=== PATIENT | female | born 1935 | race Caucasian/White ===

== ENCOUNTER → 2018-09-11 12:34 | Outpatient (CLI) | payer MEDICARE, OTHER, SELFPAY ==
--- NOTE | 2018-09-11 | DI.MG.S_ITS ---
BILATERAL DIGITAL SCREENING MAMMOGRAM 3D/2D WITH CAD POST LUMPECTOMY: 09/11/2018 CLINICAL: Routine screening. Personal history of right breast cancer. Comparison is made to exams dated: 09/08/2017 mammogram, 08/18/2015 mammogram, and 08/15/2014 mammogram - [facility]. The tissue of both breasts is heterogeneously dense. This may lower the sensitivity of mammography. Current study was also evaluated with a Computer Aided Detection (CAD) system. There are benign post operative findings in the right breast. No significant masses, calcifications, or other findings are seen in either breast. There has been no significant interval change. IMPRESSION: There is no mammographic evidence of malignancy. A 1 year screening mammogram is recommended. This exam was interpreted at Station ID: [id number]. NOTE: For mammograms, a report in lay terms will be sent to the patient. Approximately 15% of breast malignancies will not be visualized mammographically. In the management of a palpable breast mass, a negative mammogram must not discourage biopsy of a clinically suspicious lesion. Electronically Signed By: Darian schilling/dejah:09/11/2018 17:19:15 copy to: Jude Choe letter sent: Normal Exam ACR BI-RADS Category 2: Benign Finding(s) 3342F
== END ==
PROVIDERS: PCP Family Medicine; Visit Provider Nurse Practitioner Gerontology
DX: Z12.31 Encounter for screening mammogram for malignant neoplasm of breast (principal); Z85.3 Personal history of malignant neoplasm of breast; M85.851 Other specified disorders of bone density and structure, right thigh; Z78.0 Asymptomatic menopausal state; Z82.62 Family history of osteoporosis; Z87.891 Personal history of nicotine dependence
CPT/HCPCS: 77063; 77067; 77080

== ENCOUNTER → 2019-04-25 16:02 | Outpatient (CLI) | payer MEDICARE, OTHER, SELFPAY ==
--- NOTE | 2019-04-25 16:05 | DI.RAD.S_ITS ---
PROCEDURE: XR LUMBAR SPINE 2-3V INDICATIONS: lower back TECHNIQUE: 3 views of the lumbar spine were acquired. COMPARISON: [facility], , L-SPINE 2-3 VIEWS, 08/09/2011, 16:05. FINDINGS: Bones: 5 pmc-mmn-shxwsck vertebrae are present. There is persistent dextrocurvature of the lumbar spine centered at L3. Moderate-severe multilevel lumbar spondylosis demonstrates interval progression of spondylosis with increased disc space loss, degenerative endplate changes, and prominent endplate osteophyte formation. Findings appear most pronounced at L3-4 and L2-3. Lower lumbar facet arthrosis. No acute vertebral body compression fractures. No suspicious bony lesions. Soft tissues: Overlying bowel gas pattern is normal. No suspicious soft tissue calcifications. IMPRESSION: 1. Lumbar spine without acute osseous abnormalities. 2. Interval progression of moderate-severe multilevel lumbar spondylosis most pronounced at L2-3 and L3-4. If there are focal neurological deficits or clinical concern for radiographically occult osseous lesions, consider further evaluation with CT or MRI. Dictated by: Gallito Edward M.D. on 04/25/2019 at 16:59 Approved by: Gallito Edward M.D. on 04/25/2019 at 17:04
== END ==
PROVIDERS: PCP Family Medicine; Visit Provider Family Medicine
DX: M54.5 Low back pain (principal); M47.816 Spondylosis without myelopathy or radiculopathy, lumbar region
CPT/HCPCS: 72100

== ENCOUNTER → 2019-09-12 11:01 | Outpatient (CLI) | payer MEDICARE, OTHER, SELFPAY ==
--- NOTE | 2019-09-12 11:21 | DI.MG.S_ITS ---
Patient Name: RAMILA AREVALO date: 1935 Sex: F Attending Physician: Ismael Indications: Date: 09/12/2019 11:21 At the request of: DONAVAN BLANCHARD Procedure: MM screening mammo BI BILATERAL DIGITAL SCREENING MAMMOGRAM 3D/2D WITH CAD: 09/12/2019 CLINICAL: Routine screening. Personal history of right breast cancer. Comparison is made to exams dated: 09/11/2018 mammogram, 09/08/2017 mammogram, and 08/23/2016 mammogram - [facility]. The tissue of both breasts is heterogeneously dense. This may lower the sensitivity of mammography. Current study was also evaluated with a Computer Aided Detection (CAD) system. There are postsurgical changes of the right breast with scarring and peripherally calcified fat necrosis noted. There is a biopsy clip in the lateral right breast. Fine and punctate calcifications of the lateral right breast (located inferior and posterior to the larger area of peripherally calcified fat necrosis described above) appear more prominent than on prior exams. There is an irregular asymmetry in the medial right breast at middle depth. There is an irregular asymmetry in the lateral left breast at middle to posterior depth. No other significant masses, calcifications, or other findings are seen in either breast. IMPRESSION: INCOMPLETE: NEEDS ADDITIONAL IMAGING EVALUATION Fine and punctate calcifications of the lateral right breast appear more prominent than on prior exams and is indeterminate. A follow-up diagnostic mammogram with magnification views is recommended. There is an irregular asymmetry in the medial right breast at middle depth. This is indeterminate. A follow-up diagnostic mammogram with possible targeted ultrasound is recommended. There is an irregular asymmetry in the lateral left breast at middle to posterior depth. This is indeterminate. A follow-up diagnostic mammogram with possible targeted ultrasound is recommended. Continued Report - Page 2 of 2 Patient Name: RAMILA AREVALO date: 1935 Sex: F Attending Physician: Ismael Indications: Date: 09/12/2019 11:21 At the request of: DONAVAN BLANCHARD Procedure: MM screening mammo BI This exam was interpreted at Station ID: [id number]. NOTE: For mammograms, a report in lay terms will be sent to the patient. Approximately 15% of breast malignancies will not be visualized mammographically. In the management of a palpable breast mass, a negative mammogram must not discourage biopsy of a clinically suspicious lesion. Electronically Signed By: Beni Vizcaino M.D. ecl/:09/18/2019 12:53:13 copy to: Jude Choe letter sent: Additional Imaging Needed ACR BI-RADS Category 0: Incomplete 3340F
== END ==
PROVIDERS: PCP Family Medicine; Referring Provider Family Medicine; Visit Provider Internal Medicine Hematology & Oncology
DX: Z12.31 Encounter for screening mammogram for malignant neoplasm of breast (principal); Z85.3 Personal history of malignant neoplasm of breast
CPT/HCPCS: 77063; 77067

== ENCOUNTER → 2019-10-04 13:02 | Outpatient (CLI) | payer MEDICARE, OTHER, SELFPAY ==
--- NOTE | 2019-10-04 13:05 | DI.MG.S_ITS ---
BILATERAL DIGITAL DIAGNOSTIC MAMMOGRAM 3D/2D WITH ADDITIONAL VIEWS: 10/04/2019 CLINICAL: Additional evaluation requested from prior study. Comparison is made to exams dated: 09/12/2019 mammogram, 09/11/2018 mammogram, 09/08/2017 mammogram, 08/23/2016 mammogram, 04/12/2016 mammogram, and 08/18/2015 mammogram - [facility]. The tissue of both breasts is heterogeneously dense. This may lower the sensitivity of mammography. There are postsurgical changes of the right breast with scarring and peripherally calcified fat necrosis in the superior lateral quadrant. There is a biopsy clip in the superior lateral right breast. Subtle dystrophic and punctate calcification in the right breast at 11 o'clock posterior depth appear stable compared to more remote prior exams. This is seen in additional views. Irregular asymmetry in the medial right breast at middle depth resolves on additional views. Irregular asymmetry in the lateral left breast at middle to posterior depth resolves on additional views. No other significant masses, calcifications, or other findings are seen in either breast. IMPRESSION: PROBABLY BENIGN Subtle dystrophic and punctate calcification in the right breast resembles fat necrosis appear stable to more remote mammograms and are probably benign. -Exam findings and recommendation were conveyed to the patient by the echo technologist. A follow-up right breast mammogram in 6 months is recommended to demonstrate continued stability. Irregular asymmetry in the medial right breast at middle depth and lateral left breast at middle to posterior depth resolve on additional views and are benign. This exam was interpreted at Station ID: [id number]. NOTE: For mammograms, a report in lay terms will be sent to the patient. Approximately 15% of breast malignancies will not be visualized mammographically. In the management of a palpable breast mass, a negative mammogram must not discourage biopsy of a clinically suspicious lesion. Electronically Signed By: Luis Miguel Guillen M.D. slc/:10/04/2019 15:09:35 copy to: Jude Choe copy to: AWILDA WISE letter sent: Followup Recommended ACR BI-RADS Category 3: Probably benign 3343F
== END ==
PROVIDERS: PCP Family Medicine; Referring Provider Family Medicine; Visit Provider Family Medicine
DX: R92.8 Other abnormal and inconclusive findings on diagnostic imaging of breast (principal); R92.1 Mammographic calcification found on diagnostic imaging of breast; Z85.3 Personal history of malignant neoplasm of breast
CPT/HCPCS: 77066; G0279

== ENCOUNTER → 2020-03-13 12:10 | Outpatient (CLI) | payer MEDICARE, OTHER, SELFPAY ==
[2020-03-13 12:22] LABS: Bacteria Urine None Seen; WBC Urine None Seen (0-5/HPF)
[2020-03-13 12:40] LABS: Add Manual Diff / Slide Review NO; Basophils Absolute Auto 0 /uL (0-100); Basophils Percent Auto 0.5 % (0-2); Eosinophils Absolute Auto 0 /uL (0-450); Eosinophils Percent Auto 0.7 % (2-4); Hematocrit 39.2 % (36-46); Hemoglobin 13.6 g/dL (12.0-16.0); Lymphocytes Absolute Auto 700 /uL (1100-4500); Lymphocytes Percent Auto 13.3 % (25-40); Mean Corpuscular HGB Conc 34.7 % (30-36); Mean Corpuscular Hemoglobin 33.4 PG (26-34); Mean Corpuscular Volume 96.2 fL (80-100); Monocytes Absolute Auto 400 /uL (0-900); Monocytes Percent Auto 7.5 % (3-14); Neutrophils Absolute Auto 4200 /uL (1500-7000); Platelet Count 215 X10^3/uL (150-400); Red Blood Cell Count 4.08 X10^6/uL (4.0-5.2); Red Cell Distribution Width 13.1 % (11.6-14.8); White Blood Cell Count 5.4 X10^3/uL (4.5-11.0)
[2020-03-13 12:46] LABS: Appearance Urine UA CLEAR; Bilirubin Urine UA NEGATIVE (NEGATIVE); Color Urine UA YELLOW; Glucose Urine UA NEGATIVE (Negative); Ketones Urine UA TRACE (NEGATIVE); Leukocyte Esterase Urine UA NEGATIVE (NEGATIVE); Nitrite Urine UA NEGATIVE (Negative); Occult Blood Urine UA TRACE-INTACT (Negative); Protein Urine UA NEGATIVE (Negative); Specific Gravity Urine UA 1.015 (1.000-1.035); Urobilinogen Urine UA 0.2 E.U./dL (0.2)
[2020-03-13 12:49] LABS: pH Urine UA 5.5 (4.5-8.0)
[2020-03-13 12:53] LABS: Culture Indicated Urine Cult Not Indicated; RBC Urine 1-5/HPF (0-5/HPF); Squamous Epithelial Cell Urine 1-5 /HPF (0-5/HPF)
[2020-03-13 13:08] LABS: Alanine Aminotransferase 13 IU/L (<35); Albumin 4.3 g/dL (3.5-5.0); Albumin Globulin Ratio 1.6 (1.0-2.8); Alkaline Phosphatase 49 U/L (38-126); Aspartate Aminotransferase 25 IU/L (14-36); BUN Creatinine Ratio 35.4 (6-22); Bilirubin Total 0.8 mg/dL (0.2-1.3); Blood Urea Nitrogen 17 mg/dL (7-17); Calcium 9.1 mg/dL (8.4-10.2); Carbon Dioxide 29 mmol/L (22-32); Chloride 100 mmol/L (98-107); Estimated Glomerular Filt Rate > 60.0 mL/min (>60); Globulin 2.7 g/dL (1.7-4.1); Glucose 95 mg/dL (80-110); HEMOLYSIS < 15 (0-50); Potassium 4.3 mmol/L (3.4-5.1); Sodium 134 mmol/L (137-145)
== END ==
PROVIDERS: PCP Family Medicine; Referring Provider Family Medicine; Visit Provider Family Medicine
DX: M47.816 Spondylosis without myelopathy or radiculopathy, lumbar region (principal); R10.9 Unspecified abdominal pain
CPT/HCPCS: 36415; 80053; 81001; 85025

== ENCOUNTER → 2020-03-24 07:07 | Outpatient (CLI) | payer MEDICARE, OTHER, SELFPAY ==
--- NOTE | 2020-03-24 07:10 | DI.MRI.S_ITS ---
PROCEDURE: MR LUMBAR SPINE WO CON INDICATIONS: back pain with radiculopathy TECHNIQUE: Noncontrast sagittal T1 spin echo and T2 fast echo, sagittal STIR, axial T1 and T2 fast spin echo through the lumbar spine. In cases with scoliosis, additional coronal T2 fast spin echo may be performed. COMPARISON: [facility], CR, XR LUMBAR SPINE 2-3V, 04/25/2019, 16:05. [facility], MR, L-SPINE WITHOUT CONTRAST, 08/23/2011, 20:01. FINDINGS: Image quality: Diagnostic, with note made of motion artifact. Alignment and Curvature: Lwya-ol-mymndkyg dextroconvex lumbar scoliosis is seen. There is minimal retrolisthesis seen at the L2-L3 level, with grade 1 retrolisthesis at L3-L4 and minimal to mild retrolisthesis at L4-5. There is accentuated thoracolumbar kyphosis seen. Bone Marrow: Marrow is of normal overall signal. Scattered foci are seen, which are hyperintense on T1-weighted and T2-weighted imaging, which are most consistent with benign vertebral body hemangiomas. The most prominent of these can be seen within the L3 vertebral body. No acute vertebral body compression fractures. Spinal Cord: Conus medullaris terminates at the L1 level. Visualized cord demonstrates normal signal and size. Paraspinous Soft Tissues: No paravertebral masses. T12-L1: The disc height is well-preserved. Loss of disc signal is seen at this level. No significant neural foraminal or central canal narrowing can be seen. L1-L2: Mild loss of disc height is seen. Loss of disc signal is seen. Mild to moderate disc bulge is seen. There is a central/left disc extrusion, with mild superior migration of the disc material. When compared to 2012, this disc extrusion is clearly improved. There is no significant neural foraminal narrowing seen. Mild to moderate central canal narrowing is seen, which is improved compared to 2012. L2-L3: There is at least moderate loss of disc height and disc signal seen. Bridging endplate osteophytes are seen. Mild to moderate disc bulge is seen. Mild to moderate facet hypertrophy is seen. No significant neural foraminal narrowing is seen. Mild central canal narrowing is seen. Minimal progression compared to 2012. L3-L4: At least moderate loss of disc height and disc signal can be seen. Bridging endplate osteophytes are seen. Reactive marrow endplate changes are seen which are hypointense on T1-weighted imaging and hyperintense on T2 weighted imaging, which is most consistent with edema (Modic type I changes). At least moderate disc bulge is seen, which is eccentric to the left. There is moderate facet hypertrophy seen. Fluid is seen within the facet joints themselves. Associated hypertrophy of the ligamentum flavum can be seen. There is at least moderate bilateral neural foraminal narrowing seen. There is a degree of compression seen upon the exiting nerve roots. At least moderate central canal narrowing is seen, as on series 7, image 20. These imaging findings have progressed compared to the prior study. L4-L5: The disc height is well-preserved. Loss of disc signal is seen at this level. Moderate disc bulge is seen, which is eccentric to the right. There is a focal annular fissure seen posteriorly. At least moderate facet hypertrophy is seen. Fluid is seen within the facet joints themselves. There is moderate to severe bilateral neural foraminal narrowing seen, right worse than left. There is a degree of compression seen upon the exiting nerve roots. Moderate central canal narrowing is seen. These imaging findings have progressed compared to the prior study. L5-S1: The disc height is well-preserved. Loss of disc signal is seen at this level. Mild disc bulge is seen, with a central disc protrusion. There is at least moderate facet hypertrophy is seen. Apparent postoperative change with remote left hemilaminectomy. Mild bilateral neural foraminal narrowing is seen. No significant central canal narrowing is seen. The previously seen apparent cystic focus on the left has resolved. IMPRESSION: Since 2012, there has been decrease in the L1-L2 disc extrusion and resolution of the previously seen cystic focus on the left at L5-S1. However, the degenerative changes have progressed at the other levels since that time. Dictated by: Adams Ty M.D. on 03/24/2020 at 9:41 Approved by: Adams Ty M.D. on 03/24/2020 at 9:49
--- NOTE | 2020-03-24 07:10 | DI.US.S_ITS ---
PROCEDURE: US PELVIC COMPLETE INDICATIONS: ABD PAIN TECHNIQUE: Real-time scanning was performed of the pelvic organs, with image documentation. Additional endovaginal scanning was necessary due to incomplete visualization of the adnexal and endometrial structures by transabdominal scanning. COMPARISON: None. FINDINGS: Transabdominal scanning: Limited scanning through the kidneys shows no hydronephrosis. No pathologic free abdominal or pelvic fluid. Endovaginal scanning: Uterus: Uterus is normal in size at 4.7 x 2.3 x 3.6 cm. The endometrium measures 4 mm in combined thickness. Within the endocervical canal, there is a polypoid mass measuring 1.2 x 0.7 x 0.5 cm, with surrounding fluid. Ovaries: Right ovary measure 1.3 x 0.9 x 1.0 cm is unremarkable. Left ovary measures 1.4 x 1.0 x 0.6 cm and is unremarkable. IMPRESSION: Polypoid mass seen within the endocervical canal, recommend clinical correlation, with direct visualization and Pap smear/biopsy correlation as clinically warranted. Neoplasm cannot be excluded and recommend further workup. Differential includes polyp. Dictated by: Hay Hood M.D. on 03/24/2020 at 10:54 Approved by: Hay Hood M.D. on 03/24/2020 at 10:59
--- NOTE | 2020-03-24 07:10 | DI.US.S_ITS ---
PROCEDURE: US ABDOMEN COMPLETE INDICATIONS: ABD PAIN TECHNIQUE: Real-time scanning was performed of the abdominal and retroperitoneal organs, with image documentation. COMPARISON: None. FINDINGS: Liver: Liver is normal in size and homogeneous in echotexture. Liver measures approximately 11.5 cm in length. There are multiple up attic cysts, the largest of which is seen in the left lobe measuring 1.3 cm. Gallbladder: Gallbladder unremarkable. No sonographic Brunson sign. Biliary ducts: Intrahepatic bile ducts are non-dilated. Extrahepatic bile duct caliber measures 3-6 mm. Normal is 6-7 mm or less in diameter, or 10 mm or less post-cholecystectomy. Pancreas: Pancreas is not well sonographically visualized. Spleen: Spleen is normal in size and homogeneous in echotexture. Kidneys: Kidneys are normal in size and echotexture. Right kidney measures 11.5 cm long; left kidney measures 10.8 cm long. No hydronephrosis or nephrolithiasis. No solid masses. Aorta: Not sonographically visualized secondary to body habitus/bowel gas. Iliacs: Not sonographically visualized due to body habitus/bowel gas. IVC: Intrahepatic inferior vena cava is patent. Miscellaneous: No free abdominal fluid. IMPRESSION: Hepatic cysts. Normal appearance of the gallbladder. Pancreas not sonographically visualized secondary to body habitus/bowel gas. Dictated by: Hay Hood M.D. on 03/24/2020 at 10:38 Approved by: Hay Hood M.D. on 03/24/2020 at 10:42
== END ==
PROVIDERS: PCP Family Medicine; Referring Provider Family Medicine; Visit Provider Family Medicine
DX: M51.16 Intervertebral disc disorders with radiculopathy, lumbar region (principal); M47.26 Other spondylosis with radiculopathy, lumbar region; K76.89 Other specified diseases of liver; R10.9 Unspecified abdominal pain
CPT/HCPCS: 72148; 76700; 76830; 76856

== ENCOUNTER → 2020-04-15 12:34 | Outpatient (CLI) | payer MEDICARE, OTHER, SELFPAY ==
--- NOTE | 2020-04-15 12:54 | DI.MG.S_ITS ---
Patient Name: MELANIE AREVALO date: 1935 Sex: F Attending Physician: Ismael Indications: Date: 04/15/2020 13:03 At the request of: DONAVAN BLANCHARD Procedure: MM diagnostic mammo unilat RT UNILATERAL RIGHT DIGITAL DIAGNOSTIC MAMMOGRAM 3D/2D SHORT-TERM FOLLOWUP POST LUMPECTOMY: 04/15/2020 CLINICAL: Short term follow up. Comparison is made to exams dated: 08/23/2016 ultrasound, 10/04/2019 mammogram, 09/12/2019 mammogram, 09/11/2018 mammogram, 09/08/2017 mammogram, and 08/23/2016 mammogram - [facility]. The tissue of right breast is heterogeneously dense. This may lower the sensitivity of mammography. There are postsurgical changes of the right breast with scarring and peripherally calcified fat necrosis noted. There is a biopsy clip in the lateral right breast and scar marker. Stable grouped punctate calcifications in the right breast at 11 o'clock posterior depth. This is located posterior to the area of fat necrosis. No other significant masses or calcifications are seen in the breast. IMPRESSION: PROBABLY BENIGN Stable grouped punctate calcifications in the right breast are probably benign. A follow-up mammogram in 6 months is recommended to demonstrate stability. Future imaging is recommended as follows: 10/15/2020 due for left mammogram. Exam findings conveyed to the patient. This exam was interpreted at Station ID: [id number]. NOTE: For mammograms, a report in lay terms will be sent to the patient. Approximately 15% of breast malignancies will not be visualized mammographically. In the management of a palpable breast mass, a negative mammogram must not discourage biopsy of a clinically suspicious lesion. Continued Report - Page 2 of 2 Patient Name: MELANIE AREVALO date: 1935 Sex: F Attending Physician: Ismael Indications: Date: 04/15/2020 13:03 At the request of: DONAVAN BLANCHARD Procedure: MM diagnostic mammo unilat RT Electronically Signed By: Luis Miguel Guillen M.D. [facility]/:04/15/2020 13:19:59 copy to: Jude Choe copy to: AWILDA WISE letter sent: Followup Recommended ACR BI-RADS Category 3: Probably benign 3343F
== END ==
PROVIDERS: PCP Family Medicine; Referring Provider Family Medicine; Visit Provider Internal Medicine Hematology & Oncology
DX: R92.8 Other abnormal and inconclusive findings on diagnostic imaging of breast (principal); R91.1 Solitary pulmonary nodule; Z85.3 Personal history of malignant neoplasm of breast
CPT/HCPCS: 77065; G0279

== ENCOUNTER → 2020-10-14 12:41 | Outpatient (CLI) | payer MEDICARE, OTHER, SELFPAY ==
--- NOTE | 2020-10-14 12:43 | DI.RAD.S_ITS ---
PROCEDURE: XR LUMBAR SPINE 2-3V INDICATIONS: lumbar back pain TECHNIQUE: 3 views of the lumbar spine were acquired. COMPARISON: [facility], MR, MR LUMBAR SPINE WO CON, 03/24/2020, 7:41. [facility], CR, XR LUMBAR SPINE 2-3V, 04/25/2019, 16:05. FINDINGS: Bones: 5 rrm-cyx-fzefriy vertebrae are present. There is mild scoliosis but normal bony alignment. No vertebral body compression fractures. No suspicious bony lesions. Moderate dextroscoliosis. Degenerative disc disease, severe at L2-L3 and L3-L4, moderate at L1-L2. Moderate to severe facet arthropathy at L3-L4, L4-L5 and L5-S1. Soft tissues: Overlying bowel gas pattern is normal. No suspicious soft tissue calcifications. IMPRESSION: Degenerative disc and facet disease in lumbar spine. Dictated by: Toño Mckeon M.D. on 10/14/2020 at 17:20 Approved by: Toño Mckeon M.D. on 10/14/2020 at 17:23
--- NOTE | 2020-10-14 13:09 | DI.MG.S_ITS ---
Date: 10/14/2020 12:54 At the request of: DONAVAN BLANCHARD Procedure: MM diagnostic mammo BI BILATERAL DIGITAL DIAGNOSTIC MAMMOGRAM 3D/2D: 10/14/2020 CLINICAL: Short follow up, due bilateral. Comparison is made to exams dated: 04/15/2020 mammogram, 10/04/2019 mammogram, 09/12/2019 mammogram, 09/11/2018 mammogram, and 09/08/2017 mammogram - [facility]. The tissue of both breasts is heterogeneously dense. This may lower the sensitivity of mammography. There are postsurgical changes of the right breast with scarring and peripherally calcified fat necrosis noted. There is a biopsy clip in the lateral right breast. There are stable, grouped, faint punctate calcifications in the right breast at 11 o'clock posterior depth (located inferior and posterior to the larger area of peripherally calcified fat necrosis described above). No other significant masses, calcifications, or other findings are seen in either breast. IMPRESSION: PROBABLY BENIGN The grouped fine punctate calcifications in the right breast remain stable and are probably benign. A follow-up right mammogram in 6 months is recommended to demonstrate continued stability. Findings and recommendations were conveyed to the patient at time of exam. This exam was interpreted at Station ID: [id number]. NOTE: For mammograms, a report in lay terms will be sent to the patient. Approximately 15% of breast malignancies will not be visualized mammographically. In the management of a palpable breast mass, a negative mammogram must not discourage biopsy of a clinically suspicious lesion. Electronically Signed By: Akua pittman/:10/14/2020 13:36:33 copy to: Jude Choe copy to: AWILDA WISE letter sent: Followup Recommended ACR BI-RADS Category 3: Probably benign 3343F
== END ==
PROVIDERS: PCP Family Medicine; Referring Provider Internal Medicine Hematology & Oncology; Visit Provider Internal Medicine Hematology & Oncology
DX: R92.8 Other abnormal and inconclusive findings on diagnostic imaging of breast (principal); R92.1 Mammographic calcification found on diagnostic imaging of breast; C50.919 Malignant neoplasm of unspecified site of unspecified female breast; M54.5 Low back pain; M47.816 Spondylosis without myelopathy or radiculopathy, lumbar region; M51.36 Other intervertebral disc degeneration, lumbar region
CPT/HCPCS: 72100; 77066; G0279

== ENCOUNTER → 2021-02-13 08:41 | Outpatient (CLI) | payer MEDICARE, OTHER, SELFPAY ==
--- NOTE | 2021-02-13 08:43 | DI.MRI.S_ITS ---
PROCEDURE: MR LUMBAR SPINE WO CON INDICATIONS: LUMBAR ARTHROPATHY TECHNIQUE: Noncontrast sagittal T1 spin echo and T2 fast echo, sagittal STIR, axial T1 and T2 fast spin echo through the lumbar spine. In cases with scoliosis, additional coronal T2 fast spin echo may be performed. COMPARISON: [facility], MR, L-SPINE WITHOUT CONTRAST, 08/23/2011, 20:01. [facility], MR, MR LUMBAR SPINE WO CON, 03/24/2020, 7:41. FINDINGS: Image quality: Excellent. Alignment and Curvature: Mild thoracolumbar dextroscoliosis again noted. L3-4 retrolisthesis remains unchanged. Bone Marrow: Degenerative endplate changes noted at L4-5 similar to the prior exam. There is a typical fatty hemangioma noted in the L3 vertebral body. Spinal Cord: Conus medullaris terminates at the L1 level. Visualized cord demonstrates normal signal and size. Paraspinous Soft Tissues: No paravertebral masses. T11-T12: Mild disc height loss and vacuum disc phenomena present. There is a small 2 mm paracentral left disc protrusion in the subarticular left lateral recess resulting in mild central stenosis. No foraminal stenosis. No change the prior exam. T12-L1: Disc height is preserved. No disc bulge, central or foraminal stenosis. L1-L2: Mild disc height loss. Tiny 2 mm paracentral left protrusion with posterior annular high-intensity zone reflecting annular fissure or tear noted, similar prior exam. Mild central and no foraminal stenosis present. L2-L3: Moderate disc height loss and circumferential disc bulge present with mild central and no foraminal stenosis. L3-L4: Severe disc height loss and degenerative endplate changes noted. Anterior osteophyte and hypertrophic facet joints are present. Ligamentum flavum laxity contributes to moderate central stenosis. Severe right and left foraminal stenosis present. Findings are similar prior exam. L4-L5: Disc height is preserved. There is asymmetric right disc bulge effacing the right lateral recess and extending into the neural foramen resulting in severe right and moderate left foraminal stenosis. There is a right hemilaminectomy defect present. L5-S1: Disc height is preserved. Mild disc bulge and hypertrophic facet joints present without central or foraminal stenosis. Probable left hemilaminectomy noted as well. No evidence of recurrence or residual synovial cyst. IMPRESSION: 1. Multilevel degenerative disc disease and arthropathy resulting in varying degrees of central and foraminal stenosis as above, including moderate central and severe bilateral foraminal stenosis at L3-4. 2. Stable L3 vertebral typical hemangioma Dictated by: Olman Collazo M.D. on 02/13/2021 at 11:51 Approved by: Olman Collazo M.D. on 02/13/2021 at 12:09
== END ==
PROVIDERS: PCP Family Medicine; Referring Provider Physical Medicine & Rehabilitation; Visit Provider Physical Medicine & Rehabilitation
DX: M47.816 Spondylosis without myelopathy or radiculopathy, lumbar region (principal); M47.817 Spondylosis without myelopathy or radiculopathy, lumbosacral region; M41.26 Other idiopathic scoliosis, lumbar region; M51.36 Other intervertebral disc degeneration, lumbar region; M51.37 Other intervertebral disc degeneration, lumbosacral region; M48.061 Spinal stenosis, lumbar region without neurogenic claudication; D18.09 Hemangioma of other sites
CPT/HCPCS: 72148

== ENCOUNTER → 2021-03-23 08:06 | Outpatient (CLI) | payer MEDICARE, OTHER, SELFPAY ==
[2021-03-23 12:40] LABS: COVID19 -Nasal RAPID Negative (Negative)
== END ==
PROVIDERS: PCP Family Medicine; Visit Provider Physical Medicine & Rehabilitation
DX: Z20.822 Contact with and (suspected) exposure to COVID-19 (principal)
CPT/HCPCS: 87635; C9803

== ENCOUNTER 2021-03-24 10:40 | Outpatient (CLI) | payer MEDICARE, OTHER, SELFPAY ==
[2021-03-24] VITALS (7 sets, daily range): BP systolic 116–142; BP diastolic 62–82; PULSE 100–110; RESP 14–17; TEMP 36.6; O2SAT 95–99
--- NOTE | 2021-03-24 10:42 | DI.RAD.S_ITS ---
PROCEDURE: PAIN L INTERLAMINAR/CAUDAL INJ INDICATIONS: SPONDYLOSIS COMPARISON: [facility], CR, XR LUMBAR SPINE 2-3V, 10/14/2020, 13:03. [facility], MR, MR LUMBAR SPINE WO CON, 02/13/2021, 8:56. FINDINGS: Fluoroscopic spot filming was performed to verify placement of a spinal needle at the L3-L4 level, as labeled on the films. Appropriate location of the needle tip was confirmed by injection of iodinated contrast. IMPRESSION: Intraprocedural examination within normal limits. Dictated by: Adams Ty M.D. on 03/24/2021 at 11:30 Approved by: Adams Ty M.D. on 03/24/2021 at 11:31
[2021-03-24] MEDS: MIDAZOLAM 5 MG/5 ML VIAL IV (11:25)
[2021-03-24] MEDS: fentaNYL 100 MCG/2 ML INJ 50 MCG IV (11:25)
[2021-03-24] MEDS: IOPAMIDOL 15 ML VIAL 3 ML INJ (11:33)
[2021-03-24] MEDS: DEXAMETHASONE 10 MG/ML VIAL 20 MG INJ (11:34)
[2021-03-24] MEDS: BETAMETHASONE 30 MG/5 ML MDV 6 MG INJ (11:35)
[2021-03-24] MEDS: BUPIVACAINE 0.25% (PF) VIAL 2 ML INJ (11:35)
--- NOTE | 2021-03-24 11:40 | P.PCN_ITS ---
Date/Time/Diagnoses Date of procedure: 03/24/21 Time of procedure: 11:40 Pre-procedure diagnosis: 1. HNP WITH RADICULAR FEATURES, 2. MULTILEVEL CENTRAL STENOSIS, Post-procedure diagnosis: same Procedure Notes Procedure: 1. FLUOROSCOPICALLY GUIDED CONTRAST CONTROLLED INTERLAMINAR EPIDURAL STEROID INJECTION - L3/4 Indications: Humera Cleveland is referred by Dr. Choe for treatment of Bilateral Foraminal Stenosis L>R LE symptoms. Physician: Godfrey Rutherford Total Fluoroscopy time (seconds): 10 Total sedation minutes: 11 Complications: none Procedure in detail & Post-procedure care: FINDINGS Multilevel Central Spinal Stenosis with Nerve Root Compression DESCRIPTION OF PROCEDURE Fluoroscopically guided, contrast-controlled L3/4 translaminar epidural steroid injection. Following review of allergy and review of potential side effects and complications, including, but not necessarily limited to, infection, allergic reaction, local tissue breakdown, temporary as well as permanent nerve injury, paralysis, stroke and possible , the patient indicated that the patient understood and agreed to proceed. An informed consent document was signed by the patient, witnessed by a nurse, and placed in the patient's chart. Additionally, other treatment options including modalities, medications, and physical therapy were reviewed with the patient. After review of previous anaesthesic history and IV conscious sedation the patient was deemed safe to proceed with today?s procedure with IV conscious sedation as ASA class II designation. Safety time-out was performed to confirm p atient ID, procedure to be performed and site of procedure. IV sedation was accomplished with a combination of 2mg of Versed and 50mcg of Fentanyl was administered by the RN after DO order, titrated to patient comfort during the course of the procedure while the patient remained responsive to all verbal commands. In the prone position, following sterile prep and drape of the lumbar region, the L3/4 translaminar space was identified fluoroscopically. The skin was anesthetized via a 25-gauge, 1.5-inch needle with 1% lidocaine solution. At this point, a 22-gauge short bevel spinal needle was atraumatically introduced and advanced under fluoroscopic guidance into the region of the L3/4 translaminar space. Depth was confirmed on lateral view. Radiological data, including multiple fluoroscopic views of the lumbar spine, reveal a spinal needle at the L3/4 translaminar space. Lateral views then show placement of the needle in the epidural space. Subsequent views show contrast material flowing superiorly and inferiorly in the epidural space. No vascular or intrathecal uptake is observed. At this point, using loss of resistance technique with saline and air, the epidural space was entered. This was confirmed following negative aspiration with injection of approximately 1.5 cc of Isovue 200, showing excellent epidural flow without vascular or intrathecal uptake. At this point, 1cc of 1% lidocaine solution combined with 3cc or 20mg of dexamethasone and 6mg of betamethasone was injected without incident. The patient tolerated the procedure well without signs or symptoms of complications prior to transfer to the recovery area continued monitoring without incident. The patient was then transferred to the recovery area where they were observed for an appropriate period of time after the injection. The patient reported a VAS score of 6 prior to the procedure and a post- procedure VAS of 0. POST OP INSTRUCTIONS The patient was provided a Pain Log to continue to record their response to the target-specific procedure prior to follow-up visit with their referring physician. Additionally, specific post-injection care instructions and a contact number to our office were provided if concerns arise regarding possible complications associated with the procedure are suspected.
--- NOTE | 2021-03-24 12:04 | PC.NURSE ---
new onset A-Fib rate 95-115 - called and spoke with phyllis at dr [place] office - asked to take patient to ER
--- NOTE | 2021-03-24 14:05 | PC.NURSE ---
pt transport in stable condition at 1220 report to triage nurse Genny at ER registration
== END 2021-03-24 12:15 | disposition other institution (70) ==
LOC: RAD 10:42
PROVIDERS: PCP Family Medicine; Referring Provider Physical Medicine & Rehabilitation; Visit Provider Physical Medicine & Rehabilitation
DX: M48.061 Spinal stenosis, lumbar region without neurogenic claudication (principal); M51.16 Intervertebral disc disorders with radiculopathy, lumbar region
CPT/HCPCS: 62323; 99152; J0702; J1100; J2250; J3010

== ENCOUNTER 2021-03-24 12:08 | Emergency (ER) | payer MEDICARE, OTHER, SELFPAY ==
[2021-03-24 12:19] VITALS: BP 102/67; PULSE 99; RESP 16; TEMP 36.1; O2SAT 97; BMI 20.3
--- NOTE | 2021-03-24 12:22 | DI.RAD.S_ITS ---
PROCEDURE: XR CHEST 1V INDICATIONS: CHEST PAIN TECHNIQUE: One view of the chest was acquired. COMPARISON: [facility], , CHEST 2 VIEW, 02/24/2017, 12:06. FINDINGS: Surgical changes and devices: None. Lungs and pleura: Lungs are clear. No pleural effusions or pneumothorax. Chronic emphysematous changes are seen. Mediastinum: Mildly tortuous thoracic aorta is noted. Heart size is normal. Bones and chest wall: No suspicious bony lesions. Overlying soft tissues appear unremarkable. IMPRESSION: COPD. No acute cardiopulmonary pathology. Dictated by: Guy Bill M.D. on 03/24/2021 at 14:37 Approved by: Guy Bill M.D. on 03/24/2021 at 15:05
[2021-03-24 12:42] LABS: Add Manual Diff / Slide Review NO; Basophils Absolute Auto 0 /uL (0-100); Basophils Percent Auto 0.5 % (0-2); Eosinophils Absolute Auto 0 /uL (0-450); Eosinophils Percent Auto 0.9 % (2-4); Hematocrit 42.4 % (36-46); Hemoglobin 14.3 g/dL (12.0-16.0); Lymphocytes Absolute Auto 700 /uL (1100-4500); Lymphocytes Percent Auto 15.4 % (25-40); Mean Corpuscular HGB Conc 33.7 % (30-36); Mean Corpuscular Hemoglobin 33.3 PG (26-34); Mean Corpuscular Volume 98.9 fL (80-100); Monocytes Absolute Auto 300 /uL (0-900); Monocytes Percent Auto 7.2 % (3-14); Neutrophils Absolute Auto 3400 /uL (1500-7000); Platelet Count 203 X10^3/uL (150-400); Red Blood Cell Count 4.29 X10^6/uL (4.0-5.2); Red Cell Distribution Width 12.8 % (11.6-14.8); White Blood Cell Count 4.4 X10^3/uL (4.5-11.0)
[2021-03-24 12:57] LABS: Alanine Aminotransferase 20 IU/L (<35); Albumin 4.2 g/dL (3.5-5.0); Albumin Globulin Ratio 1.4 (1.0-2.8); Alkaline Phosphatase 52 U/L (38-126); Aspartate Aminotransferase 33 IU/L (14-36); BUN Creatinine Ratio 25.6 (6-22); Bilirubin Total 0.9 mg/dL (0.2-1.3); Blood Urea Nitrogen 11 mg/dL (7-17); Calcium 9.5 mg/dL (8.4-10.2); Carbon Dioxide 29 mmol/L (22-32); Chloride 98 mmol/L (98-107); Creatine Kinase 60 U/L (30-135); Estimated Glomerular Filt Rate > 60.0 mL/min (>60); Globulin 2.9 g/dL (1.7-4.1); Glucose 134 mg/dL (80-110); HEMOLYSIS 37 (0-50); Lipase 105 U/L (23-300); Potassium 4.1 mmol/L (3.4-5.1); Sodium 131 mmol/L (137-145); Total Protein 7.1 g/dL (6.3-8.2)
[2021-03-24 13:06] LABS: Troponin I < 0.012 ng/mL (0.01-0.034)
[2021-03-24 13:46] LABS: INR 1.1 (0.9-1.3); Prothrombin Time 12.5 SECONDS (10.1-12.7)
[2021-03-24 13:47] VITALS: PULSE 106; RESP 16
[2021-03-24 13:48] VITALS: BP 128/72; PULSE 102; RESP 17; O2SAT 97
[2021-03-24 13:48] LABS: PTT Partial Thromboplastin Tim 32 SECONDS (26.4-36.2)
--- NOTE | 2021-03-24 13:52 | PC.NURSE ---
Patient denies hx of cardiac disease, reports low BP at baseline. Patient denies s/sx of tachycardia.
[2021-03-24 14:00] VITALS: BP 132/78; PULSE 108; RESP 19; O2SAT 97
--- NOTE | 2021-03-24 14:06 | ED_ITS ---
HPI - Arrhythmia/Palpitations General Chief Complaint: Arrhythmia/Palpitations Stated Complaint: A-FIB Time Seen by Provider: 03/24/21 13:38 Source: patient Mode of arrival: Ambulatory Limitations: no limitations History of Present Illness HPI narrative: Patient is an 85-year-old female. Has no prior history of atrial fibrillation. Earlier today she was undergoing a steroid injection in her lower back. This was scheduled. During the time she had her vital signs taken. It was noticed that her blood pressure was elevated and she was also in atrial fibrillation. She has no prior history of this. No chest pain. No shortness of breath. No palpitations. No lightheadedness. No prior heart attack. Not on blood thinners. She was told to come to the emergency department for further evaluation. Related Data Home Medications Medication Instructions Recorded Confirmed multivitamin (Multiple Vitamins) 1 tab PO QDAY #0 08/17/17 03/04/21 melatonin 5 mg tablet 5 mg PO BEDTIME PRN 08/08/18 03/04/21 acetaminophen 500 mg tablet 1,000 mg PO Q6H PRN 12/15/20 03/04/21 (Tylenol Extra Strength) Previous Rx's Medication Instructions Recorded gabapentin 300 mg capsule See Rx Instructions .ROUTE 03/11/21 .COMPLEX #60 capsule Allergies Allergy/AdvReac Type Severity Reaction Status Date / Time codeine Allergy Mild BODY ITCH Verified 03/04/21 13:27 Review of Systems Constitutional Constitutional: Reports system reviewed and no additional complaints, except as documented Cardiovascular Cardiovascular: Reports system reviewed and no additional complaints, except as documented Respiratory Respiratory: Reports system reviewed and no additional complaints, except as documented Gastrointestinal Gastrointestinal: Reports system reviewed and no additional complaints, except as documented Musculoskeletal Musculoskeletal: Reports system reviewed and no additional complaints, except as documented Integumentary/Breasts Skin/Breast: Reports system reviewed and no additional complaints, except as documented Neurologic Neurologic: Reports system reviewed and no additional complaints, except as documented Hematologic/Lymphatic On Anticoagulants: No Allergic/Immunologic Allergic/Immunologic: Reports system reviewed and no additional complaints, except as documented Patient History Medical History Facet arthropathy, lumbar Scoliosis Surgical History Status post laminectomy Family History Father Hypertension Mother Congestive heart failure Social History marital status: Smoking Status: Never smoker alcohol intake: current (ON OCCASION ) substance use type: does not use Smoking Status: Never smoker alcohol intake frequency: 0-2 drinks per day Substance Use Type: does not use Exam Initial Vital Signs Initial Vital Signs: Vital Signs Temperature 96.9 F L 03/24/21 12:19 Pulse Rate 99 H 03/24/21 12:19 Respiratory Rate 16 03/24/21 12:19 Blood Pressure 102/67 03/24/21 12:19 Pulse Oximetry 97 03/24/21 12:19 Const General: cooperative and healthy appearing HENMT Head: normal to inspection Resp Effort & Inspection: normal respiratory effort Auscultation: clear to auscultation bilaterally Cardio Rate: regular rate Rhythm: abnormal rhythm Skin General: no rashes or lesions noted Neuro General: patient alert, patient awake and moves all extremities Extrem General: normal to inspection and capillary refill normal Psych Appearance: grossly normal Scores CHADS-VASc Congestive heart failure: no Hypertension: no Age 75 years or older: yes Diabetes mellitus: no Stroke, TIA, or TE: no Vascular disease: no Age 65 to 74 years: no Sex category (female): Female CHADS-VASc Score: 3 Course Orders Ordered: ED Orders 03/24/21 12:22 XR chest 1V Stat 03/24/21 12:27 EKG-12 Lead Stat 03/24/21 12:30 Complete Blood Count AUTO DIFF Stat Comprehensive Metabolic Panel Stat Lipase Stat Partial Thromboplastin Time Stat Prothrombin Time INR Stat Troponin & CK Cardiac Panel Stat Vital Signs Vital signs: Vital Signs - 8 hr 03/24/21 12:19 03/24/21 13:47 03/24/21 13:48 Temperature 96.9 F L Pulse Rate 99 H 106 H 102 H Respiratory Rate 16 16 17 Blood Pressure 102/67 128/72 Pulse Oximetry 97 97 03/24/21 14:00 03/24/21 14:30 03/24/21 14:52 Temperature Pulse Rate 108 H 103 H 96 H Respiratory Rate 19 25 H Blood Pressure 132/78 148/75 H Pulse Oximetry 97 95 MDM - Arrhythmia/Palpitations Lab Data Attestation: I reviewed the patient's lab results. Result diagrams: 03/24/21 12:30 03/24/21 12:30 Labs: Lab Results 03/24/21 03/24/21 03/24/21 Range/Units 12:30 12:30 12:30 WBC 4.4 L (4.5-11.0) X10^3/uL RBC 4.29 (4.0-5.2) X10^6/uL Hgb 14.3 (12.0-16.0) g/dL Hct 42.4 (36-46) % MCV 98.9 (80-100) fL MCH 33.3 (26-34) PG MCHC 33.7 (30-36) % RDW 12.8 (11.6-14.8) % Plt Count 203 (150-400) X10^3/uL Neut % (Auto) 76.0 H (50-75) % Lymph % (Auto) 15.4 L (25-40) % [place] % (Auto) 7.2 (3-14) % Eos % (Auto) 0.9 L (2-4) % Baso % (Auto) 0.5 (0-2) % Neut # (Auto) 3400 (8245-7642) /uL Lymph # (Auto) 700 L (5926-3508) /uL [place] # (Auto) 300 (0-900) /uL Eos # (Auto) 0 (0-450) /uL Baso # (Auto) 0 (0-100) /uL PT 12.5 (10.1-12.7) SECONDS INR 1.1 (0.9-1.3) APTT 32 (26.4-36.2) SECONDS Sodium 131 L (137-145) mmol/L Potassium 4.1 (3.4-5.1) mmol/L Chloride 98 (98-107) mmol/L Carbon Dioxide 29 (22-32) mmol/L BUN 11 (7-17) mg/dL Creatinine 0.43 L (0.52-1.04) mg/dL Estimated GFR > 60.0 (>60) mL/min BUN/Creatinine Ratio 25.6 H (6-22) Glucose 134 H (80-110) mg/dL Calcium 9.5 (8.4-10.2) mg/dL Total Bilirubin 0.9 (0.2-1.3) mg/dL AST 33 (14-36) IU/L ALT 20 (<35) IU/L Alkaline Phosphatase 52 (38-126) U/L Total Creatine Kinase 60 (30-135) U/L CK-MB (CK-2) TNP CK-MB (CK-2) Rel Index TNP Troponin I < 0.012 (0.01-0.034) ng/mL Total Protein 7.1 (6.3-8.2) g/dL Albumin 4.2 (3.5-5.0) g/dL Globulin 2.9 (1.7-4.1) g/dL Albumin/Globulin Ratio 1.4 (1.0-2.8) Lipase 105 (23-300) U/L ECG Data Attestation: I personally reviewed and interpreted this ECG as follows: Interpretation: Atrial fibrillation Ventricular rate 91 Normal QRS Normal QTC Normal axis No ST T wave changes MDM Narrative Medical decision making narrative: Patient is in atrial fibrillation. Heart rate has been anywhere from 95-105. Patient is asymptomatic. No chest pain. No shortness of breath. No lightheadedness. Unsure as to how long she has been in atrial fibrillation. She has a prior diagnosis of this. I did discuss atrial fibrillation with her. She does have a chads Vasc 2 score of 3. I did discuss anticoagulation with her. She would like to hold on this until she sees her primary doctor. She will start on aspirin. She was given return precautions and follow-up instructions. She expressed understanding and agreement. Discharge Plan Departure Patient Disposition: Home Clinical Impression: Atrial fibrillation Instructions: DI for Atrial Fibrillation Activity Restrictions/Additional Instructions: I do recommend that you start taking an enteric-coated aspirin. You should be receiving a call from your primary doctor's office for a follow-up. Return to the emergency department for chest pain, lightheadedness, shortness of breath, feeling like your heart is beating faster any other new or worsening symptoms. Prescriptions: No Action multivitamin [Multiple Vitamins] 1 EACH tablet 1 tab PO QDAY Qty: 0 RF: 0 gabapentin 300 mg capsule See Rx Instructions .ROUTE .COMPLEX Qty: 60 RF: 0 melatonin 5 mg Tablet 5 mg PO BEDTIME PRN (Reason: Sleep) RF: 0 acetaminophen [Tylenol Extra Strength] 500 mg tablet 1,000 mg PO Q6H PRNRF: 0 Referrals: Jude Choe MD [Primary Care Provider] -
[2021-03-24 14:30] VITALS: BP 148/75; PULSE 103; RESP 25; O2SAT 95
[2021-03-24 14:52] VITALS: PULSE 96
== END 2021-03-24 15:01 | disposition home or self-care (01) ==
PROVIDERS: Emergency Provider Emergency Medicine; PCP Family Medicine
DX: I48.91 Unspecified atrial fibrillation (principal); R07.9 Chest pain, unspecified
CPT/HCPCS: 36415; 62323; 71045; 80053; 82550; 83690; 84484; 85025; 85610; 85730; 93005; 93010; 99152; 99283; 99284; J0702; J1100; J2250; J3010

== ENCOUNTER → 2021-04-01 11:44 | Outpatient (CLI) | payer MEDICARE, OTHER, SELFPAY ==
[2021-04-01 13:54] LABS: COVID19 -Nasal RAPID Negative (Negative)
== END ==
PROVIDERS: PCP Family Medicine; Visit Provider Nurse Practitioner
DX: Z01.812 Encounter for preprocedural laboratory examination (principal); Z20.822 Contact with and (suspected) exposure to COVID-19
CPT/HCPCS: 87635; C9803

== ENCOUNTER → 2021-04-03 09:08 | Outpatient (CLI) | payer MEDICARE, OTHER, SELFPAY ==
--- NOTE | 2021-04-03 09:09 | DI.NM.S_ITS ---
PROCEDURE: NM [place] PERF SPECT REST & STR Rest and exercise myocardial perfusion SPECT with gated imaging and ejection fraction RADIOPHARMACEUTICAL: 24.2 mCi Tc-99m sestamibi IV at rest and 26.4 mCi Tc-99m sestamibi IV at peak exercise. A 4-yog-girmkgye was performed. INDICATIONS: New onset A. fib. TECHNIQUE: Radiopharmaceutical was injected at peak stress test, and also at rest. SPECT images were obtained. SPECT myocardial perfusion images were displayed in short axis, horizontal long axis, and vertical long axis views. Gated images were reviewed using [employer] software. COMPARISON: None. CARDIAC STRESS: A standard [place] treadmill exercise tolerance test was performed by the patient under the supervision of an attending staff. The patient exercised for 5 minutes and 0 seconds; functional aerobic impairment (DUANE) is -12%; 7.0 METS. Hemodynamic data: There is normal blood pressure and heart rate response to exercise stress. Patient achieved 146 of maximum predicted heart rate at peak exercise, 107% peak predicted. Symptoms: Patient denied chest pain during exercise. EKG: No diagnostic EKG changes of ischemia; no ectopy. FINDINGS: Raw data: There is good myocardial labeling by radiotracer. No significant motion artifacts. Ldta-ut-gpuwh ratio is 0.3 (normal is less than 0.38 for sestamibi tracer, and less than 0.50 for thallium tracer). Left ventricle function: Gated images demonstrate normal left ventricle wall thickening. No segmental wall motion abnormality. No transient ischemic dilation; TID is 0.96 (normal less than 1.3). The left ventricle resting end-diastolic volume is 57 mL. Left ventricle stress ejection fraction is >75%; normal values are above 45%. Myocardial perfusion: There is normal distribution of activity in the left and right ventricular myocardium. No fixed or reversible perfusion defects. IMPRESSION: 1. No evidence of exercise-induced ischemia or scar on perfusion images. 2. No evidence of inducible arrhythmia or ST segment changes on exercise ECG. 3. Normal exercise capacity. 4. Normal blood pressure response to exercise. Dictated by: Mouna Hahn D.O. on 04/07/2021 at 17:42 Approved by: Mouna Hahn M.D. on 04/07/2021 at 17:47
--- NOTE | 2021-04-03 09:09 | DI.ECHO.S_ITS ---
[facility] +---------+ : : [address] : : : : [id number] : : : : Phone: [phone] Echocardiogram Report + + :Name: MELANIE AREVALO Study Date: 04/03/2021 Height: 67 in : :[facility] ReadingLocation: Weight: 130 lb : : Gender: Female BSA: 1.7 m2 : :: 1935 Age: 85 yrs BP: 119/88 mmHg: :Reason For Study: Atrial fibrillation : :Ordering Physician: KAYLEIGH, : :BRANDON Performed By: Dylan Cruz : :Referring: BRANDON VICTOR : + + Interpretation Summary Normal left ventricle size with ejection fraction 60-65%. Moderately dilated both atria. Mild aortic valve sclerosis. No valvular regurgitation. Procedure: A two-dimensional transthoracic echocardiogram with color flow and Doppler was performed. The study quality was technically adequate. There is no prior echocardiogram noted for this patient. Left Ventricle: The left ventricle is normal in size and wall thickness. The ejection fraction is estimated to be 60-65%. There are no focal wall motion abnormalities. Diastolic function could not be accurately assessed due to atrial fibrillation. Right Ventricle: The right ventricle is normal in size and function. Atria: Both atria are moderately dilated. There is no Doppler evidence for an interatrial shunt. Mitral Valve: The mitral valve is normal in structure and function. There is no mitral regurgitation noted. Aortic Valve: There is mild aortic valve sclerosis. No aortic regurgitation is present. Tricuspid Valve: The tricuspid valve is normal in structure and function. There is trace tricuspid regurgitation. Pulmonary artery pressures cannot be estimated because of the lack of a measurable TR jet velocity but the IVC suggests a CVP of around 3 mmHg. Pulmonic Valve: The pulmonic valve is not well seen, but is grossly normal. There is no pulmonic valvular regurgitation. Great Vessels: The aortic root is normal size. The dimensions of the ascending aorta are normal. The IVC is of normal diameter and collapses greater than 50% with a sniff. This suggests a low right atrial pressure of 3 mm Hg. Pericardium/ Pleura There is no pericardial effusion. There is no pleural effusion. MMode/2D Measurements & Calculations LVIDd: 3.7 cm LVOT diam: 1.8 cm LVIDs: 2.5 cm Ao root diam: 2.9 cm FS: 31.3 % asc Aorta Diam: 3.2 cm IVSd: 0.84 cm LVPWd: 0.89 cm LV acuna. diameter/BSA (cm/m^2): 2.2 LV sys. diameter/BSA (cm/m^2): 1.5 LA A2 area: 20.5 cm2 RA long axis: 6.5 cm LA A4 area: 25.3 cm2 RA area: 22.4 cm2 LA length (vol): 5.9 cm RA vol: 65.7 ml LA vol: 74.8 ml RA : 39.0 ml/m2 LA vol index: 44.4 ml/m2 IVC diam: 2.0 cm TAPSE: 2.3 cm Doppler Measurements & Calculations Ao V2 max: 125.6 cm/sec LVOT Max Flavio: 90.0 cm/sec Ao V2 mean: 88.5 cm/sec LV V1 max P.2 mmHg Ao max P.3 mmHg LV V1 VTI: 16.8 cm Ao mean P.4 mmHg MOISES(I,D): 1.9 cm2 Ao V2 VTI: 22.1 cm MOISES(V,D): 1.8 cm2 sev ratio: 0.76 MOISES indexed to BSA (cm^2/m^2): 1.1 PA V2 max: 66.8 cm/sec SV(LVOT): 41.1 ml PA V2 mean: 49.5 cm/sec PA mean P.1 mmHg PA pr(Accel): 49.9 mmHg Electronically signed by: Karla Booth on Reading Physician:04/03/2021 11:45 AM
== END ==
PROVIDERS: PCP Family Medicine; Referring Provider Family Medicine; Visit Provider Family Medicine
DX: I35.8 Other nonrheumatic aortic valve disorders (principal); I48.91 Unspecified atrial fibrillation
CPT/HCPCS: 78452; 93016; 93017; 93018; 93306; A9502

== ENCOUNTER → 2021-04-08 11:47 | Outpatient (CLI) | payer MEDICARE, OTHER, SELFPAY ==
--- NOTE | 2021-04-08 11:51 | DI.MG.S_ITS ---
UNILATERAL RIGHT DIGITAL DIAGNOSTIC MAMMOGRAM 3D/2D SHORT-TERM FOLLOW-UP: 04/08/2021 CLINICAL: Short term follow up. Comparison is made to exams dated: 10/14/2020 mammogram, 04/15/2020 mammogram, 10/04/2019 mammogram, and 09/12/2019 mammogram - [facility]. The tissue of right breast is heterogeneously dense. This may lower the sensitivity of mammography. There are postsurgical changes of the right breast with scarring and peripherally calcified fat necrosis noted. There is a biopsy clip in the lateral right breast. Fine and punctate calcifications of the lateral right breast (located inferior and posterior to the larger area of peripherally calcified fat necrosis described above) appear less prominent than on prior exams. A previously described irregular asymmetry in the medial right breast at middle depth is no longer seen. There are grouped fine punctate calcifications in the right breast at 11 o'clock posterior depth which are less prominent. No other significant masses or calcifications are seen in the breast. IMPRESSION: PROBABLY BENIGN The findings from the mammogram 6 month ago are stable or less prominent. Recommend follow-up diagnostic mammogram in 6 months of the right breast at the time of bilateral annual mammography. NOTE: For mammograms, a report in lay terms will be sent to the patient. Approximately 15% of breast malignancies will not be visualized mammographically. In the management of a palpable breast mass, a negative mammogram must not discourage biopsy of a clinically suspicious lesion. Electronically Signed By: Yousuf Vick acr/:04/08/2021 12:33:59 copy to: Jude Choe copy to: AWILDA WISE letter sent: Followup Recommended ACR BI-RADS Category 3: Probably benign [id number]
== END ==
PROVIDERS: PCP Family Medicine; Referring Provider Internal Medicine Hematology & Oncology; Visit Provider Internal Medicine Hematology & Oncology
DX: R92.8 Other abnormal and inconclusive findings on diagnostic imaging of breast (principal); C50.919 Malignant neoplasm of unspecified site of unspecified female breast; R92.1 Mammographic calcification found on diagnostic imaging of breast
CPT/HCPCS: 77065; G0279

== ENCOUNTER → 2021-04-08 12:34 | Outpatient (CLI) | payer MEDICARE, OTHER, SELFPAY ==
[2021-04-08 14:33] LABS: TSH w/ Reflex to FT4 3.41 uIU/mL (0.47-4.68)
== END ==
PROVIDERS: PCP Family Medicine; Referring Provider Family Medicine; Visit Provider Family Medicine
DX: I48.91 Unspecified atrial fibrillation (principal)
CPT/HCPCS: 36415; 84443

== ENCOUNTER → 2021-05-07 12:50 | Outpatient (CLI) | payer MEDICARE, OTHER, SELFPAY ==
[2021-05-07 13:23] LABS: COVID19 -Nasal RAPID Negative (Negative)
== END ==
PROVIDERS: PCP Family Medicine; Visit Provider Nurse Practitioner
DX: R05.9 Cough, unspecified (principal); R09.89 Other specified symptoms and signs involving the circulatory and respiratory systems; R51.9 Headache, unspecified
CPT/HCPCS: 87635

== ENCOUNTER → 2021-05-07 13:12 | Outpatient (CLI) | payer MEDICARE, OTHER, SELFPAY ==
--- NOTE | 2021-05-07 13:15 | DI.RAD.S_ITS ---
PROCEDURE: XR CHEST 2V INDICATIONS: cough, decreased lower lung sounds TECHNIQUE: 2 views of the chest were acquired. COMPARISON: [facility], , CHEST 2 VIEW, 02/24/2017, 12:06. [facility], , XR CHEST 1V, 03/24/2021, 12:32. FINDINGS: Surgical changes and devices: Right breast clips are faintly seen. Lungs and pleura: Lungs are clear, yet hyperexpanded. No pleural effusions or pneumothorax. Mediastinum: The cardiac contours are within normal limits. The aorta demonstrates calcification and tortuosity. Bones and chest wall: No suspicious bony abnormalities. Age-appropriate bony degenerative changes are seen. Soft tissues appear unremarkable. IMPRESSION: Hyperexpanded lungs, without focal infiltrates or other acute abnormalities. No pleural effusions are seen. Dictated by: Adams Ty M.D. on 05/07/2021 at 12:36 Approved by: Adams Ty M.D. on 05/07/2021 at 12:36
== END ==
PROVIDERS: PCP Family Medicine; Referring Provider Nurse Practitioner; Visit Provider Nurse Practitioner
DX: R06.2 Wheezing (principal); R05.9 Cough, unspecified; R09.89 Other specified symptoms and signs involving the circulatory and respiratory systems; R51.9 Headache, unspecified
CPT/HCPCS: 71046; 87635

== ENCOUNTER → 2021-06-04 17:29 | Outpatient (CLI) | payer MEDICARE, OTHER, SELFPAY ==
[2021-06-04 18:19] LABS: COVID19 -Nasal RAPID Negative (Negative)
== END ==
PROVIDERS: PCP Family Medicine; Visit Provider Physician Assistant
DX: Z20.822 Contact with and (suspected) exposure to COVID-19 (principal)
CPT/HCPCS: 87635

== ENCOUNTER → 2021-06-05 12:21 | Outpatient (CLI) | payer MEDICARE, OTHER, SELFPAY ==
[2021-06-05 13:14] LABS: Add Manual Diff / Slide Review NO; Basophils Absolute Auto 0 /uL (0-100); Basophils Percent Auto 0.5 % (0-2); Eosinophils Absolute Auto 0 /uL (0-450); Eosinophils Percent Auto 0.7 % (2-4); Hematocrit 41.7 % (36-46); Hemoglobin 14.4 g/dL (12.0-16.0); Lymphocytes Absolute Auto 900 /uL (1100-4500); Lymphocytes Percent Auto 19.5 % (25-40); Mean Corpuscular HGB Conc 34.5 % (30-36); Mean Corpuscular Hemoglobin 33.2 PG (26-34); Mean Corpuscular Volume 96.2 fL (80-100); Monocytes Absolute Auto 400 /uL (0-900); Monocytes Percent Auto 7.7 % (3-14); Neutrophils Absolute Auto 3500 /uL (1500-7000); Neutrophils Percent Auto 71.6 % (50-75); Platelet Count 215 X10^3/uL (150-400); Red Blood Cell Count 4.33 X10^6/uL (4.0-5.2); Red Cell Distribution Width 12.8 % (11.6-14.8); White Blood Cell Count 4.8 X10^3/uL (4.5-11.0)
[2021-06-05 14:01] LABS: Erythrocyte Sedimentation Rate 2 MM/HR (0-20)
[2021-06-05 14:21] LABS: Alanine Aminotransferase 38 IU/L (<35); Albumin 4.4 g/dL (3.5-5.0); Albumin Globulin Ratio 1.8 (1.0-2.8); Alkaline Phosphatase 62 U/L (38-126); Aspartate Aminotransferase 43 IU/L (14-36); BUN Creatinine Ratio 24.5 (6-22); Bilirubin Total 1.1 mg/dL (0.2-1.3); Blood Urea Nitrogen 13 mg/dL (7-17); C-Reactive Protein Quant < 0.5 mg/dL (<1.0); Calcium 10.1 mg/dL (8.4-10.2); Carbon Dioxide 31 mmol/L (22-32); Chloride 95 mmol/L (98-107); Estimated Glomerular Filt Rate > 60.0 mL/min (>60); Globulin 2.5 g/dL (1.7-4.1); Glucose 96 mg/dL (80-110); HEMOLYSIS < 15 (0-50); Potassium 4.4 mmol/L (3.4-5.1); Sodium 133 mmol/L (137-145); Total Protein 6.9 g/dL (6.3-8.2)
== END ==
PROVIDERS: PCP Family Medicine; Referring Provider Physician Assistant; Visit Provider Physician Assistant
DX: R51.9 Headache, unspecified (principal)
CPT/HCPCS: 36415; 80053; 85025; 85651; 86140

== ENCOUNTER → 2021-06-10 08:59 | Outpatient (CLI) | payer MEDICARE, OTHER, SELFPAY ==
[2021-06-10 11:08] LABS: COVID19 -Nasal RAPID Negative (Negative)
== END ==
PROVIDERS: PCP Family Medicine; Visit Provider Physician Assistant
DX: Z20.822 Contact with and (suspected) exposure to COVID-19 (principal); J02.9 Acute pharyngitis, unspecified; R09.89 Other specified symptoms and signs involving the circulatory and respiratory systems; R51.9 Headache, unspecified
CPT/HCPCS: 87635

== ENCOUNTER → 2021-06-11 11:56 | Outpatient (CLI) | payer MEDICARE, OTHER, SELFPAY ==
--- NOTE | 2021-06-11 11:59 | DI.RAD.S_ITS ---
PROCEDURE: XR CHEST 2V INDICATIONS: Chest pain with inspiration; a-fib; hx of breast cancer TECHNIQUE: 2 views of the chest were acquired. COMPARISON: [facility], CR, XR CHEST 1V, 03/24/2021, 12:32. [facility], CR, XR CHEST 2V, 05/07/2021, 13:26. FINDINGS: Surgical changes and devices: None. Lungs and pleura: Lungs are hyperinflated, consistent with COPD. Small pleural effusions are present bilaterally. No pneumothorax with bibasilar atelectasis. Biapical scars. Mediastinum: Mediastinal contours are normal. Heart size is normal. Bones and chest wall: No suspicious bony abnormalities. Soft tissues appear unremarkable. IMPRESSION: 1. Small pleural effusions bilaterally with bibasilar atelectasis. 2. COPD. Dictated by: Toño Mckeon M.D. on 06/11/2021 at 14:29 Approved by: Toño Mckeon M.D. on 06/11/2021 at 14:31
== END ==
PROVIDERS: PCP Family Medicine; Referring Provider Physician Assistant; Visit Provider Physician Assistant
DX: J90 Pleural effusion, not elsewhere classified (principal); R07.1 Chest pain on breathing; I48.91 Unspecified atrial fibrillation; J44.9 Chronic obstructive pulmonary disease, unspecified; Z85.3 Personal history of malignant neoplasm of breast
CPT/HCPCS: 71046

== ENCOUNTER → 2021-06-18 10:18 | Outpatient (CLI) | payer MEDICARE, OTHER, SELFPAY ==
--- NOTE | 2021-06-18 10:19 | DI.CT.S_ITS ---
PROCEDURE: CT CHEST WO CON INDICATIONS: History of breast cancer,abnormal CXR TECHNIQUE: Noncontrast 5 mm thick sections acquired from the pulmonary apices to the posterior costophrenic angles. 1 mm lung window, 5 mm thick coronal and sagittal and 7 mm axial MIP reformats were then acquired. For radiation dose reduction, the following was used: automated exposure control, adjustment of mA and/or kV according to patient size. COMPARISON: [facility], CT, THORAX WITHOUT CONTRAST, 10/31/2012, 8:51. [facility], [place], BONE SCAN WHOLE BODY, 08/11/2012, 12:38. [facility], CT, CHEST/ABD/PEL WITH CONTRAST, 05/07/2013, 12:09. [facility], CT, CHEST/ABD/PELVIS W/CON (PNL), 08/11/2012, 10:31. [facility], CR, XR CHEST 2V, 05/07/2021, 13:26. [facility], CR, XR CHEST 2V, 06/11/2021, 11:56. FINDINGS: Image quality: Excellent. Lungs and pleura: There is a 4 mm nodule in the left lower lobe (series 3, image 253), and a 6 cm nodule in the right lower lobe (series 3, image 250); both are unchanged since 08/11/2012, compatible with benign nodules. Ground-glass densities are seen in lingula. There are scars and atelectasis in right middle lobe and lingula. Mild interstitial prominence. No acute air space opacities. There are small pleural effusions bilaterally. No pneumothorax. Central and peripheral airways are patent and normal in caliber. Mediastinum: Heart size is normal. No pericardial effusion. No mediastinal adenopathy by size criteria. Thoracic aorta and central pulmonary arteries are normal in size. Esophagus is normal in caliber. No hiatal hernia. Bones and chest wall: Sclerotic appearance of the medial head of the right clavicle adjacent to the sternoclavicular joint, new since the last exam. No vertebral body compression fractures. No axillary or supraclavicular adenopathy by size criteria. Thyroid gland is normal. Abdomen: There are calcified granulomas in spleen. IMPRESSION: 1. Small pleural effusions are present bilaterally. Etiology uncertain. 2. Ground-glass opacities in lingula could represent pneumonia. 3. Right middle lobe and lingula scars and atelectasis. 4. Small lung nodules appear stable since 08/11/2012, compatible with benign nodules. No follow-up imaging is needed. 5. Sclerotic appearance of the medial head of the right clavicle. 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 The finding is, however, new since the last CT on 05/07/2013. If clinically indicated, a whole body bone scan may be considered. Dictated by: Toño Mckeon M.D. on 06/18/2021 at 11:08 Approved by: Toño Mckeon M.D. on 06/18/2021 at 11:23
== END ==
PROVIDERS: PCP Family Medicine; Referring Provider Physician Assistant; Visit Provider Physician Assistant
DX: R93.89 Abnormal findings on diagnostic imaging of other specified body structures (principal); Z85.3 Personal history of malignant neoplasm of breast; R91.8 Other nonspecific abnormal finding of lung field; J90 Pleural effusion, not elsewhere classified; J98.4 Other disorders of lung; J98.11 Atelectasis; M89.9 Disorder of bone, unspecified
CPT/HCPCS: 71250

== ENCOUNTER → 2021-07-28 13:46 | Outpatient (CLI) | payer MEDICARE, OTHER, SELFPAY ==
[2021-07-28 15:43] LABS: COVID19 -Nasal RAPID POSITIVE (Negative)
== END ==
PROVIDERS: PCP Family Medicine; Visit Provider Physician Assistant
DX: R05.9 Cough, unspecified (principal)
CPT/HCPCS: 87635

== ENCOUNTER → 2021-10-06 11:55 | Outpatient (CLI) | payer MEDICARE, OTHER, SELFPAY ==
--- NOTE | 2021-10-06 11:56 | DI.MG.S_ITS ---
BILATERAL DIGITAL DIAGNOSTIC MAMMOGRAM 3D/2D SHORT-TERM FOLLOW-UP POST LUMPECTOMY: 10/06/2021 CLINICAL: Short term follow up of the right breast, due for bilateral imaging. Comparison is made to exams dated: 04/08/2021 mammogram, 10/14/2020 mammogram, 04/15/2020 mammogram, 10/04/2019 mammogram, 09/12/2019 mammogram, and 09/11/2018 mammogram - [facility]. The tissue of both breasts is heterogeneously dense. This may lower the sensitivity of mammography. There are stable grouped fine and punctate calcifications in the right breast at 11 o'clock posterior depth. Right breast biopsy clip and post-operative findings. Stable right breast dystrophic calcification. No other significant masses, calcifications, or other findings are seen in either breast. IMPRESSION: BENIGN No mammographic evidence of malignancy. Grouped fine and punctate calcifications in the right breast at 11 o'clock far posterior depth demonstrate long-term stability and are benign. A 1 year screening mammogram is recommended. Exam findings were conveyed to the patient. This exam was interpreted at Station ID: [id number]. NOTE: For mammograms, a report in lay terms will be sent to the patient. Approximately 15% of breast malignancies will not be visualized mammographically. In the management of a palpable breast mass, a negative mammogram must not discourage biopsy of a clinically suspicious lesion. Electronically Signed By: Luis Miguel Guillen M.D. slc/:10/06/2021 12:54:59 copy to: Jude Choe copy to: AWILDA WISE letter sent: Normal Exam ACR BI-RADS Category 2: Benign Finding(s) 3342F
== END ==
PROVIDERS: PCP Family Medicine; Referring Provider Internal Medicine Hematology & Oncology; Visit Provider Internal Medicine Hematology & Oncology
DX: R92.8 Other abnormal and inconclusive findings on diagnostic imaging of breast (principal); R92.1 Mammographic calcification found on diagnostic imaging of breast
CPT/HCPCS: 77066; G0279

== ENCOUNTER → 2021-12-02 13:05 | Outpatient (CLI) | payer MEDICARE, OTHER, SELFPAY ==
[2021-12-02 14:15] LABS: COVID19 -Nasal RAPID Negative (Negative)
== END ==
PROVIDERS: PCP Family Medicine; Visit Provider Nurse Practitioner Family
DX: Z20.822 Contact with and (suspected) exposure to COVID-19 (principal)
CPT/HCPCS: 87635

== ENCOUNTER → 2021-12-17 18:58 | Outpatient (CLI) | payer MEDICARE, OTHER, SELFPAY | PROVIDERS: PCP Family Medicine; Visit Provider Nurse Practitioner Family | DX: J31.2 Chronic pharyngitis (principal) | CPT/HCPCS: 87070 ==

== ENCOUNTER → 2022-06-01 11:32 | Outpatient (CLI) | payer MEDICARE, OTHER, SELFPAY ==
[2022-06-01 13:20] LABS: Add Manual Diff / Slide Review NO; Basophils Absolute Auto 0 /uL (0-100); Basophils Percent Auto 0.4 % (0-2); Eosinophils Absolute Auto 0 /uL (0-450); Eosinophils Percent Auto 0.8 % (2-4); Hematocrit 42.4 % (36-46); Hemoglobin 14.6 g/dL (12.0-16.0); Lymphocytes Absolute Auto 1000 /uL (1100-4500); Lymphocytes Percent Auto 17.8 % (25-40); Mean Corpuscular HGB Conc 34.3 % (30-36); Monocytes Absolute Auto 400 /uL (0-900); Monocytes Percent Auto 8.1 % (3-14); Neutrophils Absolute Auto 4000 /uL (1500-7000); Neutrophils Percent Auto 72.9 % (50-75); Platelet Count 224 X10^3/uL (150-400); Red Blood Cell Count 4.28 X10^6/uL (4.0-5.2); Red Cell Distribution Width 12.9 % (11.6-14.8); White Blood Cell Count 5.4 X10^3/uL (4.5-11.0)
[2022-06-01 13:28] LABS: BUN Creatinine Ratio 21.1 (6-22); Blood Urea Nitrogen 12 mg/dL (7-17); Calcium 9.4 mg/dL (8.4-10.2); Carbon Dioxide 29 mmol/L (22-32); Chloride 94 mmol/L (98-107); Estimated Glomerular Filt Rate > 60 mL/min (>60); Glucose 94 mg/dL (80-110); HEMOLYSIS < 15 (0-50); Potassium 4.4 mmol/L (3.4-5.1); Sodium 133 mmol/L (137-145)
== END ==
PROVIDERS: PCP Family Medicine; Referring Provider Internal Medicine Cardiovascular Disease; Visit Provider Internal Medicine Cardiovascular Disease
DX: Z00.00 Encounter for general adult medical examination without abnormal findings (principal); Z79.01 Long term (current) use of anticoagulants; I48.19 Other persistent atrial fibrillation
CPT/HCPCS: 36415; 80048; 85025

== ENCOUNTER 2022-08-24 09:46 | Outpatient (CLI) | payer MEDICARE, OTHER, SELFPAY ==
[2022-08-24] VITALS (9 sets, daily range): BP systolic 120–154; BP diastolic 64–89; PULSE 74–86; RESP 16–19; TEMP 36.4; O2SAT 96–99
--- NOTE | 2022-08-24 09:48 | DI.RAD.S_ITS ---
PROCEDURE: PAIN L/S FACET INJ/BLK 1ST QIAN COMPARISON: Merged With [facility], XA, PAIN L INTERLAMINAR/CAUDAL INJ, 03/24/2021, 11:30. Merged With [facility], MR, MR LUMBAR SPINE WO CON, 02/13/2021, 8:56. INDICATIONS: SPONDYLOSIS FINDINGS: Fluoroscopic spot filming was performed to verify placement of spinal needles on both sides at the L2-L3 and L3-L4 levels, as labeled on the films. Appropriate location of the needle tips was confirmed by injection of iodinated contrast. IMPRESSION: Intraprocedural examination demonstrating appropriate positions of the needles. Dictated by: Adams Ty M.D. on 08/24/2022 at 11:41 Approved by: Adams Ty M.D. on 08/24/2022 at 11:42
--- NOTE | 2022-08-24 10:12 | PC.NURSE ---
Patient reports current sinus infection. She started an unknown antibiotic yesterday. C/O sinus headache for which she is taking ibuprofen. Held off on initiating IV SL for procedure until seen by provider and ok to proceed. Patient verbalized understanding.
[2022-08-24] MEDS: MIDAZOLAM 2 MG/2 ML VIAL IV (10:56)
[2022-08-24] MEDS: BETAMETHASONE 30 MG/5 ML MDV 12 MG INJ (11:05)
[2022-08-24] MEDS: IOPAMIDOL 15 ML VIAL 3 ML INJ (11:05)
[2022-08-24] MEDS: BUPIVACAINE 0.5% MDV 5 ML SUBCUT (11:06)
[2022-08-24] MEDS: LIDOCAINE 1% (PF) 5 ML INJ (11:06)
--- NOTE | 2022-08-24 11:19 | P.PCN_ITS ---
Date/Time/Diagnoses Date of procedure: 08/24/22 Time of procedure: 11:19 Pre-procedure diagnosis: 1. FACET ARTHROPATHY 2. AXIAL LBP 3. MULTILEVEL DDD Post-procedure diagnosis: same Procedure Notes Procedure: 1. FLUOROSCOPICALLY GUIDED CONTRAST CONTROLLED FACET JOINT INJECTIONS BILATERAL L2/3, L3/4 Indications: Humera Cleveland is referred by Dr. Choe for treatment of Axial LBP Physician: Godfrey Rutherford Total Fluoroscopy time (seconds): 14 Total sedation minutes: 18 Complications: none Procedure in detail & Post-procedure care: FINDINGS Multilevel Facet Arthropathy with Clinically significant axial LBP DESCRIPTION OF PROCEDURE Fluoroscopically guided, contrast-controlled bilateral L2/3, L3/4 facet joint injections. Following review of allergy and review of potential side effects and complications, including, but not necessarily limited to, infection, allergic reaction, local tissue breakdown, stroke, temporary or permanent nerve injury, paralysis, and possible , the patient indicated that the patient understood and agreed to proceed. An informed consent document was signed by the patient, witnessed by a nurse, and placed in the patient's chart. Additionally, other treatment options including medications, modalities, and physical therapy were reviewed with the patient. After review of previous anaesthesic history and IV conscious sedation the patient was deemed safe to proceed with today's procedure with IV conscious sedation as ASA class II designation. Safety time-out was performed to confirm patient ID, procedure to be performed and site of procedure. IV sedation was accomplished with a combination of 2mg of Versed administered by the RN after DO order, titrated to patient comfort during the course of the procedure while the patient remained responsive to all verbal commands In the prone position, following sterile prep and drape of the lumbar region, the posterior aspect of the L2/3, L3/4 facet joints were identified fluoroscopically. The skin was anesthetized via a 25-gauge 1.5-inch needle with 1% lidocaine solution into the corresponding facet joints. At this point, a 22- gauge 3.5-inch spinal needle was atraumatically introduced and advanced under fluoroscopic guidance into the corresponding facet joints. Following negative aspiration, injections of approximately 0.2cc of Isovue 200 confirmed interarticular placement without vascular uptake. The identical procedure was then performed at the L2/3, L3/4 facet joints on the left. Radiological data, including multiple fluoroscopic views of the lumbosacral spine, reveal a spinal needle at the L2/3, L3/4 facet joints bilaterally. Subsequent views show flow of contrast material both superiorly and inferiorly within the joint space without vascular or intrathecal uptake. At this point, a total of 0.5cc including a mixture of 0.25cc Marcaine and 0.25cc betamethasone was injected without complication into each of the corresponding facet joints. The patient tolerated the procedure well without signs or symptoms of complications prior to transfer to the recovery area continued monitoring without incident. The patient was then transferred to the recovery area where they were observed for an appropriate period of time after the injection. The patient reported a VAS score of 7 prior to the procedure and a post-procedure VAS of 0. POST OP INSTRUCTIONS The patient was provided a Pain Log to continue to record their response to the target-specific procedure prior to follow-up visit with their referring physician. Additionally, specific post-injection care instructions and a contact number to our office were provided if concerns arise regarding possible complications associated with the procedure are suspected.
== END 2022-08-24 11:37 | disposition home or self-care (01) ==
LOC: RAD 09:47
PROVIDERS: PCP Family Medicine; Referring Provider Physical Medicine & Rehabilitation; Visit Provider Physical Medicine & Rehabilitation
DX: M47.816 Spondylosis without myelopathy or radiculopathy, lumbar region (principal); M51.36 Other intervertebral disc degeneration, lumbar region
CPT/HCPCS: 64493; 64494; 99152; J0702; J2250

== ENCOUNTER → 2022-09-08 12:26 | Outpatient (CLI) | payer MEDICARE, OTHER, SELFPAY ==
[2022-09-08 14:16] LABS: Add Manual Diff / Slide Review NO; Basophils Absolute Auto 0 /uL (0-100); Basophils Percent Auto 0.3 % (0-2); Eosinophils Absolute Auto 0 /uL (0-450); Eosinophils Percent Auto 0.6 % (2-4); Hematocrit 44.3 % (36-46); Hemoglobin 14.9 g/dL (12.0-16.0); Lymphocytes Absolute Auto 1000 /uL (1100-4500); Lymphocytes Percent Auto 15.2 % (25-40); Mean Corpuscular HGB Conc 33.7 % (30-36); Mean Corpuscular Volume 100.8 fL (80-100); Monocytes Absolute Auto 500 /uL (0-900); Monocytes Percent Auto 7.5 % (3-14); Neutrophils Absolute Auto 5100 /uL (1500-7000); Neutrophils Percent Auto 76.4 % (50-75); Platelet Count 225 X10^3/uL (150-400); Red Blood Cell Count 4.39 X10^6/uL (4.0-5.2); Red Cell Distribution Width 12.9 % (11.6-14.8); White Blood Cell Count 6.6 X10^3/uL (4.5-11.0)
[2022-09-08 14:42] LABS: Erythrocyte Sedimentation Rate 2 MM/HR (0-20)
[2022-09-08 14:56] LABS: C-Reactive Protein Quant < 0.5 mg/dL (<1.0)
== END ==
PROVIDERS: PCP Family Medicine; Referring Provider Physician Assistant; Visit Provider Physician Assistant
DX: G50.0 Trigeminal neuralgia (principal); Z85.3 Personal history of malignant neoplasm of breast; R51.9 Headache, unspecified
CPT/HCPCS: 36415; 85025; 85651; 86140

== ENCOUNTER → 2022-09-20 10:02 | Outpatient (CLI) | payer MEDICARE, OTHER, SELFPAY ==
--- NOTE | 2022-09-20 10:03 | DI.CT.S_ITS ---
PROCEDURE: CT SINUS SCREEN WO CON INDICATIONS: facial pain TECHNIQUE: Noncontrast 3.0 mm axial images acquired from the frontal sinuses to the mid-sella, with coronal and sagittal reformats. For radiation dose reduction, the following was used: automated exposure control, adjustment of mA and/or kV according to patient size. COMPARISON: None. FINDINGS: Image quality: Excellent. Maxillary Sinuses: No bony remodeling or destruction. Sinuses are clear. Ethmoid Air Cells: No bony remodeling or destruction. Sinuses are clear. Sphenoid Sinuses: No bony remodeling or destruction. Sinuses are clear. Frontal Sinuses: No bony remodeling or destruction. Sinuses are clear. Ostiomeatal Complexes: Ostiomeatal complexes are patent, yet they are constitutionally narrowed, with bilateral Nirmala cells. Miscellaneous: Visualized intra-orbital contents are normal. No eleazar bullosa or paradoxical turbinate curvature. There is mild rightward nasal septal deviation. Focal degenerative change is seen involving the C1-C2 interface anteriorly, with calcified pannus seen posterior to the dens. IMPRESSION: No significant active paranasal sinus disease is seen. Constitutionally narrowed ostiomeatal complexes seen, with bilateral Nirmala cells. [id number] rightward nasal septal deviation noted. Focal degenerative change is noted involving the C1-C2 interface anteriorly. Dictated by: Adams Ty M.D. on 09/20/2022 at 9:40 Approved by: Adams Ty M.D. on 09/20/2022 at 9:42
== END ==
PROVIDERS: PCP Family Medicine; Referring Provider Family Medicine; Visit Provider Family Medicine
DX: R51.9 Headache, unspecified (principal); G50.0 Trigeminal neuralgia; J34.2 Deviated nasal septum; M47.812 Spondylosis without myelopathy or radiculopathy, cervical region
CPT/HCPCS: 70486

== ENCOUNTER → 2022-10-12 14:31 | Outpatient (CLI) | payer MEDICARE, OTHER, SELFPAY ==
--- NOTE | 2022-10-12 14:32 | DI.MG.S_ITS ---
BILATERAL DIGITAL SCREENING MAMMOGRAM 3D/2D WITH CAD: 10/12/2022 CLINICAL: Routine screening. Comparison is made to exams dated: 10/06/2021 mammogram, 10/14/2020 mammogram, 04/15/2020 mammogram, 10/04/2019 mammogram, 09/12/2019 mammogram, and 09/11/2018 mammogram - [facility]. Both breasts are heterogeneously dense, which may obscure small masses (category c / 51-75% glandular tissue). Current study was also evaluated with a Computer Aided Detection (CAD) system. There are benign post operative findings and biopsy clip in the right breast. No significant masses, calcifications, or other findings are seen in either breast. There has been no significant interval change. IMPRESSION: BENIGN There is no mammographic evidence of malignancy. A 1 year screening mammogram is recommended. This exam was interpreted at Station ID: [id number]. NOTE: For mammograms, a report in lay terms will be sent to the patient. Approximately 15% of breast malignancies will not be visualized mammographically. In the management of a palpable breast mass, a negative mammogram must not discourage biopsy of a clinically suspicious lesion. Electronically Signed By: Bk mendez/dejah:10/12/2022 15:03:38 copy to: Jude Choe copy to: AWILDA WISE letter sent: Normal Exam ACR BI-RADS Category 2: Benign Finding(s) 3342F
== END ==
PROVIDERS: PCP Family Medicine; Referring Provider Family Medicine; Visit Provider Family Medicine
DX: Z12.31 Encounter for screening mammogram for malignant neoplasm of breast (principal); Z85.3 Personal history of malignant neoplasm of breast
CPT/HCPCS: 77063; 77067

== ENCOUNTER → 2022-11-01 12:29 | Outpatient (CLI) | payer MEDICARE, OTHER, SELFPAY ==
--- NOTE | 2022-11-01 12:32 | DI.RAD.S_ITS ---
PROCEDURE: XR LUMBAR SPINE MIN 4V INDICATIONS: Scoliosis axial low back TECHNIQUE: 5 views of the lumbar spine were acquired, including bilateral oblique views. COMPARISON: [facility], , XR LUMBAR SPINE 2-3V, 10/14/2020, 13:03. FINDINGS: Bones: 5 nonrib-bearing vertebrae are present. There is loss of normal lumbar lordosis. Mild diffuse kyphosis of the lower thoracic and upper lumbar spine. Multilevel disc space narrowing and endplate osteophyte formation. Facet hypertrophy throughout the mid and lower lumbar spine. No vertebral body compression fractures. No suspicious bony lesions. Soft tissues: Overlying bowel gas pattern is normal. No suspicious soft tissue calcifications. IMPRESSION: 1. Multilevel degenerative disc and facet disease. 2. No acute fracture. No osseous lesion. If symptoms and/or clinical suspicion for pathology persist, further assessment with repeat, or advanced imaging (e.g., CT, MRI, or bone scan) may be helpful for further assessment. Dictated by: Gilda Dowell M.D. on 11/01/2022 at 15:05 Transcribed by: [email or web address] on 11/01/2022 at 15:06 Approved by: Gilda Dowell M.D. on 11/01/2022 at 16:41
== END ==
PROVIDERS: PCP Family Medicine; Referring Provider Physical Medicine & Rehabilitation; Visit Provider Physical Medicine & Rehabilitation
DX: M41.26 Other idiopathic scoliosis, lumbar region (principal); M47.816 Spondylosis without myelopathy or radiculopathy, lumbar region; M51.36 Other intervertebral disc degeneration, lumbar region
CPT/HCPCS: 72110

== ENCOUNTER → 2022-11-24 09:11 | Outpatient (CLI) | payer MEDICARE, OTHER, SELFPAY ==
--- NOTE | 2022-11-24 09:12 | DI.MRI.S_ITS ---
PROCEDURE: MR LUMBAR SPINE WO CON INDICATIONS: lbp with LE symptoms TECHNIQUE: Noncontrast sagittal T1 spin echo and T2 fast echo, sagittal STIR, and T2 fast spin echo through the lumbar spine. In cases with scoliosis, additional coronal T2 fast spin echo may be performed. COMPARISON: [facility], MR, MR LUMBAR SPINE WO CON, 02/13/2021, 8:56. FINDINGS: Image quality: Excellent. Alignment and Curvature: 4 mm retrolisthesis of L3 on L4. Trace retrolisthesis of L4 on L5.. Bone Marrow: Marrow is of normal overall signal. Prominent L3 vertebral body hemangioma, as before. No acute vertebral body compression fractures. Spinal Cord: Conus medullaris terminates at the bottom of L1 L1 level. Visualized cord demonstrates normal signal and size. Paraspinous Soft Tissues: No paravertebral masses. T11-T12: Shallow broad-based left paracentral disc protrusion. Mild canal stenosis, unchanged. This is eccentric to the left. No foraminal narrowing. T12-L1: Normal appearance. L1-L2: Unchanged. Shallow broad-based superior left paracentral disc extrusion. Mild canal stenosis. No significant foraminal stenosis. L2-L3: Disc bulge. No significant canal stenosis or foraminal stenosis, unchanged. L3-L4: No significant change. Disc bulge. Prominent facet hypertrophy. Moderate canal stenosis. Moderate bilateral foraminal stenosis with mild flattening deformity on the exiting bilateral L3 nerve roots. L4-L5: No significant change. Remote right hemilaminectomy defect. Disc bulge. Prominent facet hypertrophy. Epidural lipomatosis. Moderate canal stenosis. Severe right foraminal narrowing and moderate left foraminal narrowing. There is right foraminal L4 nerve root impingement. L5-S1: Bilateral facet hypertrophy. Disc bulge. No canal stenosis or significant foraminal stenosis. IMPRESSION: 1. Findings are stable. 2. There is mild canal stenosis at T11-T12, mild canal stenosis at L1-L2, moderate canal stenosis at L3-L4, and moderate canal stenosis at L4-L5. 3. Multilevel facet arthropathy. 4. Multilevel foraminal narrowing as described above. Findings include severe right foraminal narrowing at L4-L5 with right foraminal L4 nerve root impingement. Dictated by: Daniel Jaeger M.D. on 11/24/2022 at 10:23 Approved by: Daniel Jaeger M.D. on 11/24/2022 at 10:55
== END ==
PROVIDERS: PCP Family Medicine; Referring Provider Physical Medicine & Rehabilitation; Visit Provider Physical Medicine & Rehabilitation
DX: M47.816 Spondylosis without myelopathy or radiculopathy, lumbar region (principal); M47.817 Spondylosis without myelopathy or radiculopathy, lumbosacral region; M41.26 Other idiopathic scoliosis, lumbar region; M48.04 Spinal stenosis, thoracic region; M48.061 Spinal stenosis, lumbar region without neurogenic claudication
CPT/HCPCS: 72148

== ENCOUNTER 2022-12-23 14:01 | Outpatient (CLI) | payer MEDICARE, OTHER, SELFPAY ==
[2022-12-23] VITALS (10 sets, daily range): BP systolic 123–171; BP diastolic 77–117; PULSE 91–108; RESP 14–23; TEMP 36.4; O2SAT 95–99
--- NOTE | 2022-12-23 14:03 | DI.RAD.S_ITS ---
PROCEDURE: PAIN L/S FACET INJ/BLK 1ST QIAN COMPARISON: [facility], , PAIN L/S FACET INJ/BLK 1ST QIAN, 08/24/2022, 12:05. INDICATIONS: SPONDYLOSIS Findings/impression: Fluoroscopically guided bilateral L2, L3, and L4 facet injections. Dictated by: Kelly Ramirez M.D. on 12/23/2022 at 16:25 Approved by: Kelly Ramirez M.D. on 12/23/2022 at 16:26
[2022-12-23] MEDS: MIDAZOLAM 2 MG/2 ML VIAL IV (14:52)
[2022-12-23] MEDS: IOPAMIDOL 15 ML VIAL 3 ML INJ (14:56)
[2022-12-23] MEDS: BUPIVACAINE 0.5% (PF) 10 ML VIAL 5 ML INJ (14:56)
[2022-12-23] MEDS: LIDOCAINE 1% 20 ML 5 ML INJ (14:57)
--- NOTE | 2022-12-23 15:10 | P.PCN_ITS ---
Date/Time/Diagnoses Date of procedure: 12/23/22 Time of procedure: 15:10 Pre-procedure diagnosis: FACET ARTHROPATHY Post-procedure diagnosis: same Procedure Notes Procedure: 1. BILATERAL L2, L3 AND L4 DIAGNOSTIC MB BLOCKS Indications: Humera Cleveland is referred by Dr. Choe for treatment of Bilateral Axial LBP. Physician: Godfrey Rutherford Total Fluoroscopy time (seconds): 15 Total sedation minutes: 13 Complications: none Procedure in detail & Post-procedure care: DESCRIPTION OF PROCEDURE Fluoroscopically guided, contrast-controlled bilateral L2, L3AND L4 medial branch blocks with 0.5cc of 0.5% Marcaine. Following review of allergy and review of potential side effects and complications, including, but not necessarily limited to, infection, allergic reaction, local tissue breakdown, nerve injury, paralysis, stroke and possible , the patient indicated that the patient understood and agreed to proceed. An informed consent document was signed by the patient, witnessed by a nurse, and placed in the patient's chart. After review of previous anaesthesic history and IV conscious sedation the patient was deemed safe to proceed with today's procedure with IV conscious sedation as ASA class II designation. Safety time-out was performed to confirm patient ID, procedure to be performed and site of procedure. IV sedation was accomplished with a combination of 2mg of Versed was administered by the RN after DO order, titrated to patient comfort during the course of the procedure while the patient remained responsive to all verbal commands In the prone position, following sterile prep and drape of the lumbar region, the right L2, L3 AND L4 anatomical location of the medial branch of the dorsal ramus was identified fluoroscopically. Subsequently an anesthetic skin wheal using 1% lidocaine solution was initiated at each of the anatomical spots. Subsequently then a 22-gauge 3.5-inch spinal needle was atraumatically introduced and advanced under fluoroscopic guidance at each of the corresponding sites at the right L2, L3 and L4 MB. After negative aspiration, 0.2cc of Isovue 200 was injected, confirming placement without vascular or intrathecal uptake. Subsequently then 0.5cc of 0.5% Marcaine solution was injected at each of the corresponding sites at the right L2, L3 and L4 medial branch locations. The identical procedure was replicated on the left. The patient tolerated the proc edure well without signs or symptoms of complications. The patient tolerated the procedure well without signs or symptoms of complications prior to transfer to the recovery area continued monitoring without incident. Post-procedure, the patient was monitored initiating provocative activities to measure the amount of relief from block of the facetogenic pain. The patient reported a VAS of 7 prior to the procedure and a post-procedure VAS of 1. It has been a pleasure to assist in the diagnostic and therapeutic care of your patient. POST OP INSTRUCTIONS The patient was provided with a Pain Log to complete over the next several hours and subsequent days prior to the patient's follow up with the ordering physician. If the patient has thermodynamics teacher relief to the solution applied, then they may be a candidate for medial branch rhizotomy. The patient is aware, was provided, once again, with a Pain Log and will follow up with the referring physician for review and clinical correlation
--- NOTE | 2022-12-23 15:45 | PC.NURSE ---
Patient's heart rhythm in the post procedure room changed from sinus to her previously diagnosed and treated atrial fibrillation. Patient states that she does not believe that she took her meds this am and will take them as soon as she gets home and will follow up with her doctor if she becomes symptomatic. Dr. Rutherford notified and stated it was ok to discharge the patient to home.
== END 2022-12-23 15:38 | disposition home or self-care (01) ==
PROVIDERS: PCP Family Medicine; Referring Provider Physical Medicine & Rehabilitation; Visit Provider Physical Medicine & Rehabilitation
DX: M47.9 Spondylosis, unspecified (principal)
CPT/HCPCS: 64493; 64494; 99152; J2250

== ENCOUNTER 2023-02-24 07:30 | Emergency (ER) | payer MEDICARE, OTHER, SELFPAY ==
[2023-02-24] VITALS (45 sets, daily range): BP systolic 134–180; BP diastolic 78–109; PULSE 78–112; RESP 11–33; TEMP 36.8; O2SAT 91–100; BMI 20.3
--- NOTE | 2023-02-24 07:42 | DI.RAD.S_ITS ---
PROCEDURE: XR SHOULDER RT MIN 2V INDICATIONS: Patient had fall with rt shoulder and elbow pain TECHNIQUE: 2 views of the shoulder were acquired. COMPARISON: None. FINDINGS: Bones: Anterior shoulder dislocation. Question Hill-Sachs deformity. No suspicious bony lesions. Visualized ribs appear intact. Soft tissues: No suspicious soft tissue calcifications. IMPRESSION: Anterior shoulder dislocation. Question Hill Sachs deformity. Dictated by: Daniel Jaeger M.D. on 02/24/2023 at 8:25 Approved by: Daniel Jaeger M.D. on 02/24/2023 at 8:26
--- NOTE | 2023-02-24 07:42 | DI.RAD.S_ITS ---
PROCEDURE: XR ELBOW RT 2V INDICATIONS: Patient had fall with rt shoulder and elbow pain TECHNIQUE: 3 views of the elbow were acquired. COMPARISON: None. FINDINGS: Bones: No fractures or dislocations. No suspicious bony lesions. No true lateral obtained. Soft tissues: No identifiable elbow joint effusion. However, no true lateral obtained. No suspicious soft tissue calcifications. IMPRESSION: Suboptimal position. No fracture or dislocation identified. Comment: If continue to suspect acute fracture of the elbow, consider repeat attempt at plain films with a true lateral versus obtaining a CT. Dictated by: Daniel Jaeger M.D. on 02/24/2023 at 8:23 Approved by: Daniel Jaeger M.D. on 02/24/2023 at 8:25
--- NOTE | 2023-02-24 08:15 | ED_ITS ---
HPI - Extremity Injury (Upper) General Chief Complaint: Extremity Injury, Upper Stated Complaint: Fell, Hurt R shoulder Time Seen by Provider: 02/24/23 07:50 Source: patient Mode of arrival: Ambulatory History of Present Illness HPI narrative: Patient brought here by son for injury to the right shoulder. Patient is right- handed. Patient is on Eliquis for atrial fibrillation but she denies denies hitting her head or neck or any other injuries. She states she tripped on an area rug in her kitchen last night around 9:00 p.m.. Landed on her right shoulder. Has pain to the right shoulder. Limited range of motion due to pain. There is deformity to the right shoulder. There is a drop off anteriorly. No numbness or tingling to the hand or fingers. No prior history injury to the shoulder Related Data Home Medications Medication Instructions Recorded Confirmed multivitamin (Multiple Vitamins 1 tab PO QDAY ##0 08/17/17 12/06/22 tablet) melatonin 5 mg tablet 5 mg PO BEDTIME PRN Sleep 08/08/18 12/06/22 acetaminophen 500 mg tablet 1,000 mg PO Q6H PRN Pain (Scale 12/15/20 12/06/22 (Tylenol Extra Strength) Score 4-6) cholecalciferol (vitamin D3) 50 50 mcg PO DAILY 05/15/21 12/06/22 mcg (2,000 unit) capsule ascorbic acid (vitamin C) 500 mg 500 mg PO DAILY 05/21/21 12/06/22 tablet (Vitamin C) zinc 50 mg capsule 50 mg PO DAILY 05/21/21 12/06/22 Previous Rx's Medication Instructions Recorded apixaban 5 mg tablet (Eliquis) 5 mg PO BID #180 tabs 09/28/21 metoprolol succinate 50 mg 50 mg PO BID #180 tabs 09/28/21 tablet,extended release 24 hr gabapentin 300 mg capsule 600 mg PO BEDTIME #180 caps 10/18/22 Allergies Allergy/AdvReac Type Severity Reaction Status Date / Time codeine Allergy Mild BODY ITCH Verified 02/24/23 07:39 Review of Systems Review of Systems Narrative: GENERAL: negative chills, fatigue, malaise, fever, sweats. HEENT: negative sinus pain, ear pain, sore throat RESPIRATORY: negative dyspnea, cough CARDIOVASCULAR: negative chest pain, palpitations GASTROINTESTINAL: negative nausea, vomiting, abdominal pain : negative dysuria, frequency, hematuria MUSCULOSKELETAL: Positive bony pain SKIN: negative rash, skin lesions NEUROLOGIC: negative weakness, numbness ROS Unobtainable: All systems reviewed & are unremarkable except as noted in HPI and below Patient History Medical History A-fib Breast cancer in female CTS (carpal tunnel syndrome) Facet arthropathy, lumbar Scoliosis Surgical History Status post laminectomy Family History Father Hypertension Mother Congestive heart failure Social History marital status: Smoking Status: Never smoker alcohol intake: current (ON OCCASION ) substance use type: does not use Smoking Status: Never smoker alcohol intake frequency: 0-2 drinks per day Alcohol type: wine Substance Use Type: does not use Exam Narrative Exam Narrative: GENERAL: in no distress, not toxic not dyspneic HEAD: Normocephalic. Nontender face and scalp EYES: Pupils equal round ENT: Mucous membranes moist. NECK: Trachea midline. No midline tenderness or step-off the cervicothoracic or lumbar spine CARDIOVASCULAR: Regular rate and rhythm without murmurs RESPIRATORY: Clear to auscultation. Breath sounds equal bilaterally. No wheezes, rales, or rhonchi. GASTROINTESTINAL: Abdomen soft, non-tender EXTREMITIES: Examination right upper extremity. There is deformity/drop off of the anterior shoulder. Limited range of motion at the shoulder due to pain. Nontender wrist and elbow. Strong vascular specialists light touch intact deltoid and fingertips and thumb. Strong radial pulse. Arm hand warm soft and pink brisk cap refills. There is ecchymosis medial aspect of the right shoulder in the armpit. BACK: No flank tenderness. NEURO: AOx4. SKIN: Warm and dry PSYCH: Not anxious, is cooperative Initial Vital Signs Initial Vital Signs: Vital Signs Temperature 98.2 F 02/24/23 07:34 Pulse Rate 91 H 02/24/23 07:34 Respiratory Rate 20 02/24/23 07:34 Blood Pressure 156/78 H 02/24/23 07:34 Pulse Oximetry 98 02/24/23 07:34 Oxygen Delivery Method Room Air 07/27/23 07:34 Procedures Orthopedic Joint Reduction Joint #1: Time of procedure: 10:43 Time Out Performed: Yes Side: right Joint Reduction Location: shoulder Analgesia: procedural sedation Shoulder Technique Used (if applicable): traction/counter-traction Technique used: traction/counter-traction Post-reduction neuro exam: intact and no change Post-reduction vascular: intact and no change Post Reduction X-Ray Obtained: Yes Post Reduction X-Ray Results: reduced Patient Tolerated Procedure: Well and No complications Additional Comments: Please see anesthesia note with BUILDING CUSTODIAN for procedural sedation. Patient placed in the sling postreduction Course Orders Ordered: Discontinued Medications Diphenhydramine HCl (Diphenhydramine 50 Mg/Ml Vial) 12.5 mg IV NOW ONE Stop: 02/24/23 08:25 Last Admin: 02/24/23 08:41 Dose: 12.5 mg Documented By: BLADE Hydromorphone HCl (Hydromorphone 1 Mg Inj) 1 mg IV NOW ONE Stop: 02/24/23 08:15 Last Admin: 02/24/23 08:41 Dose: 1 mg Documented By: BLADE Hydromorphone HCl (Hydromorphone 1 Mg Inj) 1 mg IV NOW ONE Stop: 02/24/23 09:11 Last Admin: 02/24/23 09:21 Dose: 1 mg Documented By: STEPHANIA Sodium Chloride (Normal Saline 0.9%) 500 mls @ 50 mls/hr IV CONT BALAJI Last Infusion: 02/24/23 11:23 Dose: 0 mls/hr Documented By: Admin: 02/24/23 10:40 Dose: 50 mls/hr Documented By: STEPHANIA Ondansetron HCl (Ondansetron 4 Mg/2 Ml Inj) 4 mg IV NOW ONE Stop: 02/24/23 08:15 Last Admin: 02/24/23 08:42 Dose: 4 mg Documented By: BLADE Propofol (Propofol 200 Mg/20 Ml Vial) 100 mg IV NOW ONE Stop: 02/24/23 10:56 Last Admin: 02/24/23 10:57 Dose: 100 mg Documented By: STEPHANIA Vital Signs Vital signs: Vital Signs - 8 hr 02/24/23 07:34 02/24/23 08:15 02/24/23 08:50 Temperature 98.2 F Pulse Rate 91 H 95 H Pulse Rate [Right Radial] 78 Respiratory Rate 20 22 Blood Pressure 156/78 H Pulse Oximetry 98 96 Oxygen Delivery Method Room Air Oxygen Flow Rate 02/24/23 08:51 02/24/23 08:51 02/24/23 08:55 Temperature Pulse Rate 95 H 97 H Pulse Rate [Right Radial] Respiratory Rate 20 25 H Blood Pressure 180/91 H Pulse Oximetry 96 94 Oxygen Delivery Method Oxygen Flow Rate 02/24/23 09:00 02/24/23 09:01 02/24/23 09:01 Temperature Pulse Rate 99 H 98 H Pulse Rate [Right Radial] Respiratory Rate 33 H 24 Blood Pressure 165/109 H Pulse Oximetry 95 95 Oxygen Delivery Method Oxygen Flow Rate 02/24/23 09:05 02/24/23 09:10 02/24/23 09:15 Temperature Pulse Rate 95 H 102 H 112 H Pulse Rate [Right Radial] Respiratory Rate 24 23 25 H Blood Pressure Pulse Oximetry 97 91 99 Oxygen Delivery Method Oxygen Flow Rate 02/24/23 09:20 02/24/23 09:25 02/24/23 09:30 Temperature Pulse Rate 100 H 97 H Pulse Rate [Right Radial] Respiratory Rate 16 27 H Blood Pressure 156/96 H Pulse Oximetry 98 98 Oxygen Delivery Method Oxygen Flow Rate 02/24/23 09:30 02/24/23 09:35 02/24/23 09:40 Temperature Pulse Rate 98 H 99 H 94 H Pulse Rate [Right Radial] Respiratory Rate 15 22 20 Blood Pressure Pulse Oximetry 91 97 96 Oxygen Delivery Method Nasal Cannula Nasal Cannula Nasal Cannula Oxygen Flow Rate 2 2 2 02/24/23 09:45 02/24/23 09:45 02/24/23 09:50 Temperature Pulse Rate 94 H 94 H Pulse Rate [Right Radial] Respiratory Rate 18 21 Blood Pressure 154/92 H Pulse Oximetry 98 97 Oxygen Delivery Method Nasal Cannula Nasal Cannula Oxygen Flow Rate 2 2 02/24/23 09:55 02/24/23 10:00 02/24/23 10:00 Temperature Pulse Rate 96 H 98 H Pulse Rate [Right Radial] Respiratory Rate 20 17 Blood Pressure 151/92 H Pulse Oximetry 96 96 Oxygen Delivery Method Nasal Cannula Nasal Cannula Oxygen Flow Rate 2 2 02/24/23 10:05 02/24/23 10:10 02/24/23 10:15 Temperature Pulse Rate 93 H 96 H Pulse Rate [Right Radial] Respiratory Rate 17 21 Blood Pressure 160/96 H Pulse Oximetry 96 97 Oxygen Delivery Method Nasal Cannula Oxygen Flow Rate 2 02/24/23 10:15 02/24/23 10:20 02/24/23 10:25 Temperature Pulse Rate 92 H 93 H 96 H Pulse Rate [Right Radial] Respiratory Rate 18 23 19 Blood Pressure Pulse Oximetry 97 97 98 Oxygen Delivery Method Oxygen Flow Rate 02/24/23 10:30 02/24/23 10:30 02/24/23 10:35 Temperature Pulse Rate 97 H 94 H Pulse Rate [Right Radial] Respiratory Rate 23 25 H Blood Pressure 160/99 H Pulse Oximetry 97 98 Oxygen Delivery Method Oxygen Flow Rate 02/24/23 10:40 02/24/23 10:41 02/24/23 10:41 Temperature Pulse Rate 97 H 92 H Pulse Rate [Right Radial] Respiratory Rate 31 H 25 H Blood Pressure 157/108 H Pulse Oximetry 98 94 Oxygen Delivery Method Oxygen Flow Rate 02/24/23 10:45 02/24/23 10:45 02/24/23 10:50 Temperature Pulse Rate 96 H 95 H Pulse Rate [Right Radial] Respiratory Rate 31 H 12 Blood Pressure 134/80 Pulse Oximetry 99 100 Oxygen Delivery Method Oxygen Flow Rate 02/24/23 10:51 02/24/23 10:51 02/24/23 10:54 Temperature Pulse Rate 96 H 95 H Pulse Rate [Right Radial] Respiratory Rate 11 L 19 Blood Pressure 142/89 H Pulse Oximetry 99 97 Oxygen Delivery Method Oxygen Flow Rate 02/24/23 10:54 02/24/23 10:55 02/24/23 11:00 Temperature Pulse Rate 96 H 97 H Pulse Rate [Right Radial] Respiratory Rate 14 24 Blood Pressure 176/98 H Pulse Oximetry 97 96 Oxygen Delivery Method Oxygen Flow Rate 02/24/23 11:01 02/24/23 11:01 02/24/23 11:05 Temperature Pulse Rate 93 H Pulse Rate [Right Radial] Respiratory Rate 20 Blood Pressure 166/97 H 152/92 H Pulse Oximetry 97 Oxygen Delivery Method Oxygen Flow Rate 02/24/23 11:05 02/24/23 11:10 02/24/23 11:10 Temperature Pulse Rate 96 H 95 H Pulse Rate [Right Radial] Respiratory Rate 16 13 Blood Pressure 157/101 H Pulse Oximetry 97 97 Oxygen Delivery Method Oxygen Flow Rate 02/24/23 11:15 02/24/23 11:15 02/24/23 11:20 Temperature Pulse Rate 93 H Pulse Rate [Right Radial] Respiratory Rate 15 Blood Pressure 166/101 H 171/91 H Pulse Oximetry 98 Oxygen Delivery Method Oxygen Flow Rate 02/24/23 11:20 Temperature Pulse Rate 96 H Pulse Rate [Right Radial] Respiratory Rate 19 Blood Pressure Pulse Oximetry 99 Oxygen Delivery Method Oxygen Flow Rate MDM - Extremity Injury (Upper) Lab Data Labs: Point of Care Testing Test Results Not applicable Imaging Data Extremity x-ray #1: Radiologist's Impression: [address] [address] XRay Report Signed Patient: Humera Jackman MR#: [id number] : 1935 Acct:[id number] Age/Sex: 87 / F Date of Service: 02/24/23 Loc: ED Accession Number: [id number] ?? Procedure: XR elbow RT 2V Ordering Provider: Jose Villaseñor MD PROCEDURE:? XR ELBOW RT 2V ? INDICATIONS:? Patient had fall with rt shoulder and elbow pain ? TECHNIQUE:? 3 views of the elbow were acquired.? ? COMPARISON:? None. ? FINDINGS:? ? Bones:? No fractures or dislocations.? No suspicious bony lesions.? No true lateral obtained.? ? Soft tissues:? No identifiable elbow joint effusion.? However, no true lateral obtained.? No suspicious soft tissue calcifications.? ? ? IMPRESSION:? Suboptimal position.? No fracture or dislocation identified. ? Comment:? If continue to suspect acute fracture of the elbow, consider repeat attempt at plain films with a true lateral versus obtaining a CT. ? ? Dictated by: Daniel Jaeger M.D. on 02/24/2023 at 8:23 ? ? Approved by: Daniel Jaeger M.D. on 02/24/2023 at 8:25 ? Extremity x-ray #2: Radiologist's Impression: [address] [address] XRay Report Signed Patient: Humera Jackman MR#: [id number] : 1935 Acct:[id number] Age/Sex: 87 / F Date of Service: 02/24/23 Loc: ED Accession Number: [id number] ?? Procedure: XR shoulder RT min 2V Ordering Provider: Jose Villaseñor MD PROCEDURE:? XR SHOULDER RT MIN 2V ? INDICATIONS:? Patient had fall with rt shoulder and elbow pain ? TECHNIQUE:? 2 views of the shoulder were acquired.? ? COMPARISON:? None. ? FINDINGS:? ? Bones:? Anterior shoulder dislocation.? Question Hill-Sachs deformity.? No suspicious bony lesions.? Visualized ribs appear intact.? ? Soft tissues:? No suspicious soft tissue calcifications.? ? IMPRESSION:? Anterior shoulder dislocation.? Question Hill Sachs deformity. ? ? Dictated by: Daniel Jaeger M.D. on 02/24/2023 at 8:25 ? ? Approved by: Daniel Jaeger M.D. on 02/24/2023 at 8:26 ? Extremity x-ray #3: Radiologist's Impression: [place] [address] XRay Report Signed Patient: Humera Jackman MR#: [id number] : 1935 Acct:[id number] Age/Sex: 87 / F Date of Service: 02/24/23 Loc: ED Accession Number: [id number] ?? Procedure: XR shoulder RT min 2V Ordering Provider: Jose Villaseñor MD PROCEDURE:? XR SHOULDER RT MIN 2V ? INDICATIONS:? post reduction ? TECHNIQUE:? 2 views of the shoulder were acquired.? ? COMPARISON:? [facility], , XR SHOULDER RT MIN 2V, 02/24/2023, 7:42. ? FINDINGS:? ? Bones:? Satisfactory reduction of dislocation.? Bankart deformity.? No suspicious bony lesions.? Visualized ribs appear intact.? ? Soft tissues:? No suspicious soft tissue calcifications.? ? IMPRESSION:? Bankart impaction deformity of the humeral head post reduction of anterior shoulder dislocation. ? ? Dictated by: Daniel Jaeger M.D. on 02/24/2023 at 11:12 ? ? Approved by: Daniel Jaeger M.D. on 02/24/2023 at 11:16 ? MDM Narrative Medical decision making narrative: Patient brought here by son for injury to the right shoulder. Patient is right- handed. Patient is on Eliquis for atrial fibrillation but she denies denies hitting her head or neck or any other injuries. She states she tripped on an area rug in her kitchen last night around 9:00 p.m.. Landed on her right shoulder. Has pain to the right shoulder. Limited range of motion due to pain. There is deformity to the right shoulder. There is a drop off anteriorly. No numbness or tingling to the hand or fingers. No prior history injury to the shoulder After history and exam x-ray right shoulder right elbow, at this time will try conservative treatment with pain medication and passive traction counter traction for reduction MDM CC: Right shoulder pain Complicating co-morbidities: Eliquis/AFib Data collected from: Patient and son Medical records reviewed: No recent visit for this complaint Differential considered: Includes but not limited to shoulder fracture shoulder dislocation shoulder contusion Exam documented above, pertinent findings include: Deformity to the right shoulder Imaging studies independently reviewed: Consultations: Spoke with Dr. Gao, orthopedics, he will try to reduce shoulder after my attempt but recommends anesthesia to be there. Anesthesia BUILDING CUSTODIAN in the emergency department to help for sedation. Consent for procedural sedation and closed reduction completed. I did review with patient risks and benefits and she does agree. Treatments: Dilaudid Josiane, I did try conservative treatment for reduction of the shoulder with using Dilaudid but unsuccessful. However due to timeframe dislocation, patient will need procedural sedation Re-evaluations: 11:30 a.m.. Patient feeling much better. She is awake alert oriented x4. Pain is much better. Reviewed exam in results of imaging with patient. Referral for Orthopedics provided. Cautioned her about future dislocations and being careful raising her hand above her head or behind her ba ck. Family at bedside. Discussion: Appropriate for discharge home. No blood work indicated this time. Patient is on Eliquis but will not nurse case management. Patient did not hit her head. There was successful reduction of dislocation, I did consult anesthesia BUILDING CUSTODIAN and was able to provide sedation during my reduction. Return precautions reviewed with patient and family. They desire discharge home Diagnosis: Right shoulder dislocation Discharge Plan Departure Patient Disposition: Home Clinical Impression: Anterior dislocation of right shoulder Instructions: DI for Shoulder Dislocation Activity Restrictions/Additional Instructions: No driving or operating machinery until cleared by orthopedic services. Please call provided orthopedic office today for office appointment within a week. Use sling for comfort. May continue home medications. Please continue Tylenol for pain. May use cool packs to the shoulder 20 minutes at a time as needed for pain and swelling. Prescriptions: No Action multivitamin [Multiple Vitamins] 1 EACH tablet 1 tab PO QDAY Qty: 0 Eliquis 5 mg tablet 5 mg PO BID Qty: 180 3RF metoprolol succinate 50 mg tablet extended release 24 hr 50 mg PO BID Qty: 180 3RF gabapentin 300 mg capsule 600 mg PO BEDTIME Qty: 180 1RF melatonin 5 mg Tablet 5 mg PO BEDTIME PRN (Reason: Sleep) ascorbic acid (vitamin C) [Vitamin C] 500 mg Tablet 500 mg PO DAILY zinc 50 mg Capsule 50 mg PO DAILY acetaminophen [Tylenol Extra Strength] 500 mg tablet 1,000 mg PO Q6H PRN (Reason: Pain (Scale Score 4-6)) cholecalciferol (vitamin D3) 50 mcg (2,000 unit) capsule 50 mcg PO DAILY Referrals: Cruz Toussaint MD [Physician] - Jude Choe MD [Primary Care Provider] - Stand Alone Forms: Patient Portal/API
[2023-02-24] MEDS: diphenhydrAMINE 50 MG/ML VIAL 12.5 MG IV (08:41)
[2023-02-24] MEDS: HYDROMORPHONE 1 MG INJ IV ×2 (08:41→09:21)
[2023-02-24] MEDS: ONDANSETRON 4 MG/2 ML INJ IV (08:42)
[2023-02-24] MEDS: SODIUM CHLORIDE 0.9% 500 ML 50 ML IV (10:40)
--- NOTE | 2023-02-24 10:47 | DI.RAD.S_ITS ---
PROCEDURE: XR SHOULDER RT MIN 2V INDICATIONS: post reduction TECHNIQUE: 2 views of the shoulder were acquired. COMPARISON: [facility], , XR SHOULDER RT MIN 2V, 02/24/2023, 7:42. FINDINGS: Bones: Satisfactory reduction of dislocation. Bankart deformity. No suspicious bony lesions. Visualized ribs appear intact. Soft tissues: No suspicious soft tissue calcifications. IMPRESSION: Bankart impaction deformity of the humeral head post reduction of anterior shoulder dislocation. Dictated by: Daniel Jaeger M.D. on 02/24/2023 at 11:12 Approved by: Daniel Jaeger M.D. on 02/24/2023 at 11:16
[2023-02-24] MEDS: propofoL 200 MG/20 ML VIAL 100 MG IV (10:57)
--- NOTE | 2023-02-24 10:57 | RT ---
This RT provided standby assist during consious sedation. PING PONG TABLE ASSEMBLER at [facility] and providing airway care/emt/paramedic. Procedure performed without complication, pt did require some bag-mask ventilation via PING PONG TABLE ASSEMBLER for a couple minutes. Otherwise, pt appearing comfortable and in no noted distress. Pt now waking with Spo2 98% on 3L NC and ETCO2 20.
== END 2023-02-24 12:00 | disposition home or self-care (01) ==
PROVIDERS: Emergency Provider Emergency Medicine; PCP Family Medicine
DX: S43.084A Other dislocation of right shoulder joint, initial encounter (principal); W01.0XXA Fall on same level from slipping, tripping and stumbling without subsequent striking against object, initial encounter; I48.91 Unspecified atrial fibrillation; Z79.01 Long term (current) use of anticoagulants
CPT/HCPCS: 23650; 36415; 73030; 73070; 96361; 96374; 96375; 96376; 99152; 99285; J1170; J1200; J2405; J2704

== ENCOUNTER → 2023-03-21 12:50 | Outpatient (CLI) | payer MEDICARE, OTHER, SELFPAY ==
--- NOTE | 2023-03-21 | DI.MRI.S_ITS ---
PROCEDURE: MR SHOULDER RT WO CON INDICATIONS: RULE OUT ROTATOR CUFF TEAR TECHNIQUE: Noncontrast oblique coronal T2 fast spin echo with fat saturation, oblique sagittal T1 spin echo and T2 fast spin echo with fat saturation, axial T1 spin echo and T2 fast spin echo with fat saturation through the shoulder. COMPARISON: [facility] [place], CR, XR SHOULDER 2+ VIEWS RIGHT, 02/28/2023, 15:10. FINDINGS: Image quality: Degraded by motion artifact. Rotator cuff: There is full-thickness tearing of the entire supraspinatus and infraspinatus tendons with medial retraction of the supraspinatus and infraspinatus muscles. Low-grade intrasubstance and articular surface tearing of the mid and superior subscapularis tendon at the humeral insertion site extending to the musculotendinous junction. Teres minor is intact. Bones and bursae: Sachs fracture of the humeral head is present with moderate underlying ill-defined T2 signal elevation, indicating contusion. There is moderate ill-defined T2 signal elevation within the anteroinferior glenoid, consistent with bony contusion/Bankart injury. Moderate glenohumeral and acromioclavicular joint degeneration. The acromion demonstrates conventional anatomy, without an os acromiale. No pathologic subacromial-subdeltoid or subcoracoid bursal fluid is present. Capsule and soft tissues: Labrum demonstrates diffuse degenerative fraying The long head of the biceps tendon demonstrates normal location and partial-thickness tearing. The rotator interval appears normal, without fibrosis. The coracohumeral ligament is normal in thickness. IMPRESSION: 1. Sequelae of recent anteroinferior shoulder dislocation with associated Hill-Sachs fracture and Bankart injury as above. 2. Acromioclavicular and glenohumeral joint osteoarthritis. 3. Full-thickness tearing of the supraspinatus and infraspinatus tendons. Low-grade partial-thickness tearing of the subscapularis. 4. Partial thickness biceps tendon tear. 5. Diffuse degenerative glenoid labral tearing. Dictated by: Gilda Dowell M.D. on 03/21/2023 at 15:07 Approved by: Gilda Dowell M.D. on 03/21/2023 at 15:09
== END ==
PROVIDERS: PCP Family Medicine; Referring Provider Orthopaedic Surgery; Visit Provider Orthopaedic Surgery
DX: S42.291S Other displaced fracture of upper end of right humerus, sequela (principal); M75.121 Complete rotator cuff tear or rupture of right shoulder, not specified as traumatic; M19.011 Primary osteoarthritis, right shoulder
CPT/HCPCS: 73221

== ENCOUNTER 2023-06-28 12:14 | Outpatient (CLI) | payer MEDICARE, OTHER, SELFPAY ==
[2023-06-28] VITALS (11 sets, daily range): BP systolic 117–156; BP diastolic 60–91; PULSE 90–105; RESP 13–27; TEMP 36.9; O2SAT 94–100
--- NOTE | 2023-06-28 13:00 | DI.RAD.S_ITS ---
PROCEDURE: PAIN L/S FACET INJ/BLK 1ST QIAN INDICATIONS: SPONDYLOSIS COMPARISON: [facility], , PAIN L/S FACET INJ/BLK 1ST QIAN, 12/23/2022, 14:55. FINDINGS: Fluoroscopic spot filming was performed to verify placement of spinal needles on both sides at the L2, L3, and L4 levels, as labeled on the films. Appropriate location of the needle tips was confirmed by injection of iodinated contrast. IMPRESSION: Intraprocedural examination demonstrating appropriate positions of the needles. Dictated by: Adams Ty M.D. on 06/28/2023 at 16:19 Approved by: Adams Ty M.D. on 06/28/2023 at 16:20
[2023-06-28] MEDS: MIDAZOLAM 2 MG/2 ML VIAL IV (13:20)
[2023-06-28] MEDS: iopamidoL 15 ML VIAL 3 ML INJ (13:23)
[2023-06-28] MEDS: LIDOCAINE 1% 20 ML 5 ML INJ (13:23)
[2023-06-28] MEDS: LIDOCAINE 2% INJ MDV 20ML 5 ML INJ (13:23)
--- NOTE | 2023-06-28 13:38 | P.PCN_ITS ---
Date/Time/Diagnoses Date of procedure: 06/28/23 Time of procedure: 13:38 Pre-procedure diagnosis: 1. FACET ARTHROPATHY Post-procedure diagnosis: same Procedure Notes Procedure: 1. BILATERAL L2, L3 AND L4 DIAGNOSTIC MB BLOCKS Indications: Humera Cleveland is referred by Dr. Choe for treatment of Bilateral Axial LBP. Physician: Godfrey Rutherford Total Fluoroscopy time (seconds): 12 Total sedation minutes: 13 Complications: none Procedure in detail & Post-procedure care: DESCRIPTION OF PROCEDURE Fluoroscopically guided, contrast-controlled bilateral L2, L3 AND L4 medial branch blocks with 0.5cc of 2% Lidocaine. Following review of allergy and review of potential side effects and complications, including, but not necessarily limited to, infection, allergic reaction, local tissue breakdown, nerve injury, paralysis, stroke and possible , the patient indicated that the patient understood and agreed to proceed. An informed consent document was signed by the patient, witnessed by a nurse, and placed in the patient's chart. After review of previous anaesthesic history and IV conscious sedation the patient was deemed safe to proceed with today's procedure with IV conscious sedation as ASA class II designation. Safety time-out was performed to confirm patient ID, procedure to be performed and site of procedure. IV sedation was accomplished with a combination of 2mg of Versed and 50mcg of Fentantyl was administered by the RN after DO order, titrated to patient comfort during the course of the procedure while the patient remained responsive to all verbal commands In the prone position, following sterile prep and drape of the lumbar region, the right L2, L3 AND L4 anatomical location of the medial branch of the dorsal ramus was identified fluoroscopically. Subsequently an anesthetic skin wheal using 1% lidocaine solution was initiated at each of the anatomical spots. Subsequently then a 22-gauge 3.5-inch spinal needle was atraumatically introduced and advanced under fluoroscopic guidance at each of the corresponding sites at the right L2, L3 and L4 MB. After negative aspiration, 0.2cc of Isovue 200 was injected, confirming placement without vascular or intrathecal uptake. Subsequently then 0.5cc of 2% Lidocaine solution was injected at each of the corresponding sites at the right L2, L3 and L4 medial branch locations. The identical procedure was replicated on the left. The patient tolerated the procedure well without signs or symptoms of complications. The patient tolerated the procedure well without signs or symptoms of complications prior to transfer to the recovery area continued monitoring without incident. Post-procedure, the patient was monitored initiating provocative activities to measure the amount of relief from block of the facetogenic pain. The patient reported a VAS of 7 prior to the procedure and a post-procedure VAS of 1. It has been a pleasure to assist in the diagnostic and therapeutic care of your patient. POST OP INSTRUCTIONS The patient was provided with a Pain Log to complete over the next several hours and subsequent days prior to the patient's follow up with the ordering physician. If the patient has automation mechanic relief to the solution applied, then they may be a candidate for medial branch rhizotomy. The patient is aware, was provided, once again, with a Pain Log and will follow up with the referring physician for review and clinical correlation
== END 2023-06-28 14:05 | disposition home or self-care (01) ==
PROVIDERS: PCP Family Medicine; Referring Provider Physical Medicine & Rehabilitation; Visit Provider Physical Medicine & Rehabilitation
DX: M47.816 Spondylosis without myelopathy or radiculopathy, lumbar region (principal); M41.26 Other idiopathic scoliosis, lumbar region
CPT/HCPCS: 64493; 64494; 99152; J2250

== ENCOUNTER 2023-09-13 10:41 | Outpatient (CLI) | payer MEDICARE, OTHER, SELFPAY ==
[2023-09-13] VITALS (14 sets, daily range): BP systolic 127–150; BP diastolic 59–111; PULSE 57–105; RESP 12–25; O2SAT 90–98
--- NOTE | 2023-09-13 11:15 | DI.RAD.S_ITS ---
PROCEDURE: PAIN L/S MED/LAT N RFA BILAT INDICATIONS: SPONDYLOSIS COMPARISON: MR, MR LUMBAR SPINE WO CON, 11/24/2022, 9:22. CR, XR LUMBAR SPINE MIN 4V, 11/01/2022, 12:56. FINDINGS: Fluoroscopic spot filming was performed to verify placement of spinal needles at the L2, L3 and L4 level(s) bilateral, as labeled on the films. Appropriate location(s) of the needle tip(s) was confirmed by injection of iodinated contrast. IMPRESSION: Fluoroscopy for pain management. Dictated by: Toño Mckeon M.D. on 09/13/2023 at 13:00 Approved by: Toño Mckeon M.D. on 09/13/2023 at 13:02
[2023-09-13] MEDS: MIDAZOLAM 2 MG/2 ML VIAL IV (11:40)
[2023-09-13] MEDS: LIDOCAINE 1% 20 ML 5 ML INJ (11:46)
[2023-09-13] MEDS: BUPIVACAINE 0.5% (PF) 10 ML VIAL 5 ML INJ (11:46)
[2023-09-13] MEDS: fentaNYL 100 MCG/2 ML INJ 25 MCG IV ×2 (11:52→12:00)
[2023-09-13] MEDS: LIDOCAINE 1% 20 ML INJ (12:26)
--- NOTE | 2023-09-13 12:34 | P.PCN_ITS ---
Date/Time/Diagnoses Date of procedure: 09/13/23 Time of procedure: 12:34 Pre-procedure diagnosis: 1. RECALCITRANT FACET ARTHROPATHY Post-procedure diagnosis: same Procedure Notes Procedure: 1. BILATERAL L2, L3, L4 MEDIAL BRANCH RADIOFREQUENCY NEUROTOMY Indications: Humera Cleveland is referred by Dr. Choe for treatment of facet arthropathy. Physician: Godfrey Rutherford Total Fluoroscopy time (seconds): 27 Total sedation minutes: 46 Complications: none Procedure in detail & Post-procedure care: DESCRIPTION OF PROCEDURE Bilateral L3, L4 and L5 medial branch radiofrequency neurotomy The patient is well known to this clinic having undergone previous facet injections with good but temporary relief. The patient has experienced appropriate, concordant relief with previous facet and median branch blocks but the patient's pain has been recalcitrant to further conservative measures. Therefore, based upon the patient's relief and persistent symptoms, the patient is considered an appropriate candidate for facet rhizotomy. All of the patient's questions regarding the risks versus benefits of the procedure, including, but not limited to, bleeding, infection, temporary as well as lasting nerve injury, paralysis, stroke, and , as well treatment alternatives were answered to satisfaction. After obtaining informed consent, denial of pertinent drug allergies, as well as being made aware of the potential risks of bleeding, infection, spinal cord trauma, paralysis, temporary and permanent nerve damage, seizure, stroke, and possible , the patient was brought to the fluoroscopy suite and positioned prone on the fluoroscopy table. After review of previous anaesthesic history and IV conscious sedation the patient was deemed safe to proceed with today's procedure with IV conscious sedation as ASA class II designation. Safety time-out was performed to confirm patient ID, procedure to be performed and site of procedure. IV sedation was accomplished with a combination of 2mg of Versed and 50mcg of Fentanyl administered by the RN after DO order, titrated to patient comfort during the course of the procedure while the patient remained responsive to all verbal commands. The lumbar region was prepped in usual sterile fashion and covered with a fenestrated drape in the usual sterile fashion. Appropriate monitors applied including pulse oximeter, pulse, and blood pressure for regular monitoring throughout the procedure. After local infiltration using 1% lidocaine, under fluoroscopic guidance, a 10- cm RF insulated needle with a 10-mm active tip was positioned parallel to the junction of the right the superior articulating process where the L5 medial branch resides. Needle placement was confirmed with motor stimulation of .5v on the right which produced local stimulation without radicular component. The stimulation was then increased to 2v with, once again, only local multifidus stimulation without radicular component. The needle was then removed and the identical procedure was performed along the length of the right L4 medial branch with motor stimulation at .7v on the right. The identical procedure was once again performed along the length of the right L3 and medial branch with motor stimulation of .5v on the right. The medial branches were then anesthetised with 0.5% marcaine. This was then followed by two discreet lesions performed at 80 degrees Celsius for 90 seconds each. The identical procedures were repeated on the left. The patient tolerated the procedure well without signs or symptoms of complications prior to transfer to the recovery area continued monitoring without incident. The patient was then transferred to the recovery area where they were observed for an appropriate period of time after the injection. The patient reported a VAS score of 7 prior to the procedure and a post-procedure VAS of 2. POST OP INSTRUCTIONS The patient was provided a Pain Log to continue to record the patient's response to the target-specific procedure prior to the patient's follow-up visit with the referring physician. Additionally, specific post-injection care instructions and a contact number to our office were provided if concerns arise regarding possible complications associated with the procedure are suspected.
--- NOTE | 2023-09-15 14:16 | PC.NURSE ---
Patient contacted and stated that she is having some pain, but has not used any ice yet. She stated the pain is not unbearable and she expected it to be painful afterwards. Patient was encouraged to start using the ice 20 minutes on 20 minutes off while awake. Patient was also encouraged to call the clinic if her pain worsens.
== END 2023-09-13 12:58 | disposition home or self-care (01) ==
LOC: RAD 10:42
PROVIDERS: PCP Family Medicine; Referring Provider Physical Medicine & Rehabilitation; Visit Provider Physical Medicine & Rehabilitation
DX: M47.816 Spondylosis without myelopathy or radiculopathy, lumbar region (principal)
CPT/HCPCS: 64635; 64636; 99152; 99153; J2250; J3010

== ENCOUNTER → 2023-09-29 12:25 | Outpatient (CLI) | payer MEDICARE, OTHER, SELFPAY ==
[2023-09-29 13:15] LABS: Influenza A - CEPHEID Flu A NEGATIVE (NEGATIVE); Influenza B - CEPHEID Flu B NEGATIVE (NEGATIVE); Respiratory Syncytial Virus Negative (Negative)
[2023-09-29 14:15] LABS: COVID-19 CEPHEID 4-PLEX PCR Negative (Negative)
== END ==
PROVIDERS: PCP Family Medicine; Visit Provider Nurse Practitioner Family
DX: R05.1 Acute cough (principal)
CPT/HCPCS: 0241U

== ENCOUNTER → 2023-10-10 10:40 | Outpatient (CLI) | payer MEDICARE, OTHER, SELFPAY ==
--- NOTE | 2023-10-10 10:42 | DI.RAD.S_ITS ---
PROCEDURE: XR CHEST 2V INDICATIONS: R/O pneumonia TECHNIQUE: 2 views of the chest were acquired. COMPARISON: [facility], CR, XR CHEST 2V, 06/11/2021, 11:56. FINDINGS: Surgical changes and devices: None. Lungs and pleura: There is [id number] right and minimal to mild left pleural effusions increased compared to 2020. Mild increased vascularity. Mediastinum: Mediastinal contours are normal. Heart size is enlarged. Bones and chest wall: No suspicious bony abnormalities. Soft tissues appear unremarkable. IMPRESSION: Bilateral effusions. Underlying areas of pneumonia/atelectasis cannot be excluded. Mild appearance of increased vascularity is present suggestive of edema. Recommend interval follow-up to document resolution is good presence of underlying mass lesion. Dictated by: Simran Wilson M.D. on 10/10/2023 at 12:00 Approved by: Simran Wilson M.D. on 10/10/2023 at 12:03
== END ==
PROVIDERS: PCP Family Medicine; Referring Provider Physician Assistant; Visit Provider Physician Assistant
DX: C50.911 Malignant neoplasm of unspecified site of right female breast (principal); J90 Pleural effusion, not elsewhere classified; I48.21 Permanent atrial fibrillation; I51.7 Cardiomegaly; R05.1 Acute cough; M47.816 Spondylosis without myelopathy or radiculopathy, lumbar region; G56.03 Carpal tunnel syndrome, bilateral upper limbs; M47.22 Other spondylosis with radiculopathy, cervical region; M41.26 Other idiopathic scoliosis, lumbar region
CPT/HCPCS: 71046; 99214

== ENCOUNTER → 2023-11-18 11:26 | Outpatient (CLI) | payer MEDICARE, OTHER, SELFPAY ==
--- NOTE | 2023-11-18 11:27 | DI.MG.S_ITS ---
BILATERAL DIGITAL SCREENING MAMMOGRAM 3D/2D WITH CAD: 11/18/2023 CLINICAL: Routine screening. Personal history of right breast cancer. Comparison is made to exams dated: 10/12/2022 mammogram, 10/06/2021 mammogram, and 04/08/2021 mammogram - [facility]. There are scattered areas of fibroglandular density in both breasts (category b / 25%-50% glandular tissue). Current study was also evaluated with a Computer Aided Detection (CAD) system. There is a possible developing irregular global asymmetry with an indistinct margin in the left breast anterior depth central to the nipple seen on the craniocaudal view only. No other significant masses, calcifications, or other findings are seen in either breast. IMPRESSION: INCOMPLETE: NEEDS ADDITIONAL IMAGING EVALUATION The possible developing irregular global asymmetry in the left breast is indeterminate. Additional views with possible ultrasound are recommended. This exam was interpreted at Station ID: [id number]. NOTE: For mammograms, a report in lay terms will be sent to the patient. Approximately 15% of breast malignancies will not be visualized mammographically. In the management of a palpable breast mass, a negative mammogram must not discourage biopsy of a clinically suspicious lesion. Electronically Signed By: Akua pittman/dejah:11/21/2023 16:04:12 copy to: Jude Choe copy to: AWILDA WISE letter sent: Additional Imaging Needed ACR BI-RADS Category 0: Incomplete [id number]
== END ==
LOC: MAMMO 11:26
PROVIDERS: PCP Family Medicine; Referring Provider Internal Medicine Hematology & Oncology; Visit Provider Internal Medicine Hematology & Oncology
DX: Z12.31 Encounter for screening mammogram for malignant neoplasm of breast (principal); Z85.3 Personal history of malignant neoplasm of breast; R92.323 Mammographic fibroglandular density, bilateral breasts
CPT/HCPCS: 77063; 77067

== ENCOUNTER 2023-11-27 12:05 | Emergency (ER) | payer MEDICARE, OTHER, SELFPAY ==
[2023-11-27] VITALS (16 sets, daily range): BP systolic 114–150; BP diastolic 73–98; PULSE 91–126; RESP 20–33; TEMP 36.5; O2SAT 80–98; BMI 20.3
[2023-11-27 13:03] LABS: Add Manual Diff / Slide Review NO; Basophils Absolute Auto 0 /uL (0-100); Basophils Percent Auto 0.4 % (0-2); Eosinophils Absolute Auto 0 /uL (0-450); Hematocrit 42.4 % (36-46); Hemoglobin 14.8 g/dL (12.0-16.0); Lymphocytes Absolute Auto 500 /uL (1100-4500); Lymphocytes Percent Auto 4.9 % (25-40); Mean Corpuscular HGB Conc 34.9 % (30-36); Mean Corpuscular Volume 97.5 fL (80-100); Monocytes Absolute Auto 600 /uL (0-900); Monocytes Percent Auto 5.8 % (3-14); Neutrophils Absolute Auto 9000 /uL (1500-7000); Neutrophils Percent Auto 88.9 % (50-75); Platelet Count 260 X10^3/uL (150-400); Red Blood Cell Count 4.34 X10^6/uL (4.0-5.2); Red Cell Distribution Width 13.7 % (11.6-14.8); White Blood Cell Count 10.1 X10^3/uL (4.5-11.0)
[2023-11-27 13:09] LABS: INR 1.5 (0.9-1.3)
[2023-11-27 13:12] LABS: PTT Partial Thromboplastin Tim 41 SECONDS (25.1-36.5)
--- NOTE | 2023-11-27 13:15 | PC.NURSE ---
Attempted placement of an indwelling huang cath per provider Mank order. Unsuccessful attempt. VALERI Dubois and Provider Mank made aware.
[2023-11-27 13:17] LABS: Alanine Aminotransferase 21 IU/L (<35); Albumin 4.5 g/dL (3.5-5.0); Albumin Globulin Ratio 1.6 (1.0-2.8); Alkaline Phosphatase 78 U/L (38-126); Aspartate Aminotransferase 34 IU/L (14-36); BUN Creatinine Ratio 34.9 (6-22); Bilirubin Total 1.3 mg/dL (0.2-1.3); Blood Urea Nitrogen 15 mg/dL (7-17); Calcium 9.2 mg/dL (8.4-10.2); Carbon Dioxide 26 mmol/L (22-32); Chloride 92 mmol/L (98-107); Estimated Glomerular Filt Rate > 60 mL/min (>60); Globulin 2.8 g/dL (1.7-4.1); Glucose 122 mg/dL (80-110); HEMOLYSIS 21 (0-50); Sodium 126 mmol/L (137-145); Total Protein 7.3 g/dL (6.3-8.2)
[2023-11-27] MEDS: PANTOPRAZOLE 40 MG VIAL 80 MG IV (13:27)
[2023-11-27] MEDS: ONDANSETRON 4 MG/2 ML INJ IV (13:27)
--- NOTE | 2023-11-27 14:16 | ED.FEMALEGU ---
HPI - Female Genitourinary General Chief complaint: GI Bleed Stated complaint: constipation, incontinence, rectal bleeding Time Seen by Provider: 11/27/23 12:56 Source: patient Mode of arrival: Ambulatory Limitations: no limitations History of Present Illness HPI Narrative: 88-year-old female with history of atrial fibrillation on apixaban daily, prior breast cancer, scoliosis with degenerative joint disease and chronic low back pain presents with complaint of urinary retention constipation with small amounts of stool/bloody stools slipping out occasionally. Patient states she has not been able to have a bowel movement she has been on narcotics which she has stopped because they were making her quite nauseated. She states no saddle anesthesia. She states she is chronic back pain which has been fairly controlled recently. She it is increased flank pain today but also has been unable to urinate since last night. She states she has not had that problem in the past. She states she is definitely constipated has not been able to have a bowel movement but feels like she needs to. She has not been able to empty her bladder. She denies any pain numbness or tingling down her legs. She has not had any weakness in her lower extremities. She has been able to ambulate. She denies any fevers. No nausea or vomiting. No chest pain or shortness of breath. Patient states she does not tolerate narcotics well. She has had prior interventions for her low back in the past including injections, she would surgery in her 40s on her low back. No regular tobacco, patient has a glass of wine most days, no recreational drugs. Related Data Home Medications Medication Instructions Recorded Confirmed multivitamin (Multiple Vitamins 1 tab PO QDAY ##0 08/17/17 10/10/23 tablet) melatonin 5 mg tablet 5 mg PO BEDTIME PRN Sleep 08/08/18 10/10/23 acetaminophen 500 mg tablet 1,000 mg PO Q6H PRN Pain (Scale 12/15/20 10/10/23 (Tylenol Extra Strength) Score 4-6) cholecalciferol (vitamin D3) 50 50 mcg PO DAILY 05/15/21 10/10/23 mcg (2,000 unit) capsule ascorbic acid (vitamin C) 500 mg 500 mg PO DAILY 05/21/21 10/10/23 tablet (Vitamin C) zinc 50 mg capsule 50 mg PO DAILY 05/21/21 10/10/23 Previous Rx's Medication Instructions Recorded apixaban 5 mg tablet (Eliquis) 5 mg PO BID #180 tabs 09/28/21 metoprolol succinate 50 mg 50 mg PO BID #180 tabs 09/28/21 tablet,extended release 24 hr azithromycin 250 mg tablet See Rx Instructions PO .COMPLEX #6 10/10/23 tabs cyclobenzaprine 5 mg tablet 5 mg PO BID PRN muscle spasm #60 10/10/23 tabs docusate sodium 100 mg capsule 100 mg PO DAILY #10 caps 11/27/23 (Colace) tamsulosin 0.4 mg capsule (Flomax) 0.4 mg PO DAILY #10 caps 11/27/23 Allergies Allergy/AdvReac Type Severity Reaction Status Date / Time tramadol Allergy Intermediate Confusion Verified 11/27/23 12:28 codeine Allergy Mild BODY ITCH Verified 11/27/23 12:28 Review of Systems Review of Systems ROS Unobtainable: All systems reviewed & are unremarkable except as noted in HPI and below Patient History Medical History CTS (carpal tunnel syndrome) A-fib Facet arthropathy, lumbar Scoliosis Breast cancer in female Surgical History Status post laminectomy Family History Father Hypertension Mother Congestive heart failure alcohol intake frequency: 0-2 drinks per day Alcohol type: wine Substance Use Type: does not use Exam Narrative Exam Narrative: GENERAL: Alert and oriented x three, female in mild distress HEENT: Head normocephalic, atraumatic, EOMI, pupils reactive, face symmetric, moist mucous membranes NECK: Supple, full range of motion CARDIOVASCULAR: Regular rate and rhythm without murmurs, rubs or gallops. RESPIRATORY: Breath sounds equal bilaterally, no wheezes rales or rhonchi. ABDOMEN: Soft, nontender, patient's bladder feels distended on palpation. Normoactive bowel sounds all 4 quadrants. No guarding or rebound, rigidity, no mass, digital rectal exam patient has small hemorrhoids which were quite uncomfortable externally and on internal exam, patient has a large ball of stool although it is softer noted on exam. Is a small amount of brown bright red blood CBC from rectal opening. RN Sherly was welt butter hand. : No CVA tenderness, Female: external vaginal exam normal with the exception fairly narrow vaginal opening, no vaginal bleeding, no discharge. There is no stool from the vagina. EXTREMITIES: Normal range of motion, 5/5 muscle strength. Patient has legs flexed moves them without issue on the bed. No clubbing or edema. Neurovascularly intact NEUROLOGICAL: Cranial nerves II through XII grossly intact. Moving all extremities SKIN: Warm, dry, no petechiae, no rashes or lesions. Initial Vital Signs Initial Vital Signs: Vital Signs Temperature 97.7 F 11/27/23 12:11 Pulse Rate 126 H 11/27/23 12:11 Respiratory Rate 22 11/27/23 12:11 Blood Pressure 150/83 H 11/27/23 12:11 Pulse Oximetry 97 11/27/23 12:11 Oxygen Delivery Method Room Air 11/27/23 12:11 Course Orders Ordered: Discontinued Medications Sodium Chloride (Normal Saline 0.9%) 1,000 mls @ 1,000 mls/hr IV BOLUS ONE Stop: 11/27/23 14:40 Last Infusion: 11/27/23 15:30 Dose: Infused Documented By: Admin: 11/27/23 14:20 Dose: 1,000 mls/hr Documented By: HOWARD Magnesium Citrate (Magnesium Citrate 300 Ml Solution) 300 ml PO NOW ONE Stop: 11/27/23 16:50 Last Admin: 11/27/23 18:04 Dose: 300 ml Documented By: HOWARD Mineral Oil (Mineral Oil 1 Each Enema) 1 each MI NOW ONE Stop: 11/27/23 14:45 Last Admin: 11/27/23 14:57 Dose: 1 each Documented By: HOWARD Ondansetron HCl (Ondansetron 4 Mg/2 Ml Inj) 4 mg IV NOW PRN PRN Reason: Nausea And Vomiting Last Admin: 11/27/23 13:27 Dose: 4 mg Documented By: HOWARD Ondansetron HCl (Ondansetron 4 Mg Odt) 4 mg SL NOW PRN PRN Reason: Nausea And Vomiting Pantoprazole Sodium (Pantoprazole 40 Mg Vial) 80 mg IV NOW ONE Stop: 11/27/23 12:58 Last Admin: 11/27/23 13:27 Dose: 80 mg Documented By: HOWARD Sodium Chloride (Sodium Chloride 0.9% Flush) 10 ml IV BID BALAJI Sodium Chloride (Sodium Chloride 0.9% Flush) 10 ml IV PRN PRN PRN Reason: Flush Vital Signs Vital signs: Vital Signs - 8 hr 11/27/23 12:11 11/27/23 12:43 11/27/23 12:46 Temperature 97.7 F Pulse Rate 126 H 115 H 113 H Respiratory Rate 22 26 H Blood Pressure 150/83 H Pulse Oximetry 97 97 97 Oxygen Delivery Method Room Air 11/27/23 12:46 11/27/23 13:00 11/27/23 13:30 Temperature Pulse Rate 110 H 106 H Respiratory Rate 24 32 H Blood Pressure 142/97 H Pulse Oximetry 96 97 Oxygen Delivery Method 11/27/23 13:34 11/27/23 13:34 11/27/23 14:00 Temperature Pulse Rate 105 H 103 H Respiratory Rate 26 H 25 H Blood Pressure 114/86 Pulse Oximetry 96 95 Oxygen Delivery Method 11/27/23 14:00 11/27/23 14:30 11/27/23 14:30 Temperature Pulse Rate 101 H Respiratory Rate 23 Blood Pressure 126/76 150/81 H Pulse Oximetry 90 L Oxygen Delivery Method 11/27/23 15:00 11/27/23 15:00 11/27/23 15:27 Temperature Pulse Rate 102 H Respiratory Rate 24 Blood Pressure 134/90 137/98 H Pulse Oximetry 98 Oxygen Delivery Method 11/27/23 15:27 11/27/23 15:30 11/27/23 15:30 Temperature Pulse Rate 91 H 105 H Respiratory Rate 20 21 Blood Pressure 129/90 Pulse Oximetry 80 L 96 Oxygen Delivery Method 11/27/23 16:00 11/27/23 16:01 11/27/23 16:01 Temperature Pulse Rate 101 H 103 H Respiratory Rate 22 28 H Blood Pressure 128/97 H Pulse Oximetry 88 L 85 L Oxygen Delivery Method 11/27/23 16:30 11/27/23 16:30 11/27/23 17:00 Temperature Pulse Rate 102 H 100 H Respiratory Rate 33 H 27 H Blood Pressure 127/93 H Pulse Oximetry 95 95 Oxygen Delivery Method 11/27/23 17:00 11/27/23 17:30 Temperature Pulse Rate 102 H Respiratory Rate 22 Blood Pressure 134/73 Pulse Oximetry 95 Oxygen Delivery Method Room Air MDM - Female Genitourinary Lab Data 11/27/23 12:55 11/27/23 12:55 Labs: Lab Results 11/27/23 11/27/23 Range/Units 12:55 14:40 WBC 10.1 (4.5-11.0) X10^3/uL RBC 4.34 (4.0-5.2) X10^6/uL Hgb 14.8 (12.0-16.0) g/dL Hct 42.4 (36-46) % MCV 97.5 (80-100) fL MCH 34.0 (26-34) PG MCHC 34.9 (30-36) % RDW 13.7 (11.6-14.8) % Plt Count 260 (150-400) X10^3/uL Neut % (Auto) 88.9 H (50-75) % Lymph % (Auto) 4.9 L (25-40) % [place]wsley % (Auto) 5.8 (3-14) % Eos % (Auto) 0.0 L (2-4) % Baso % (Auto) 0.4 (0-2) % Neut # (Auto) 9000 H (3909-9296) /uL Lymph # (Auto) 500 L (1856-4846) /uL Owsley # (Auto) 600 (0-900) /uL Eos # (Auto) 0 (0-450) /uL Baso # (Auto) 0 (0-100) /uL PT 17.0 H (9.4-12.5) SECONDS INR 1.5 H (0.9-1.3) APTT 41 H (25.1-36.5) SECONDS Sodium 126 L (137-145) mmol/L Potassium 4.0 (3.4-5.1) mmol/L Chloride 92 L (98-107) mmol/L Carbon Dioxide 26 (22-32) mmol/L BUN 15 (7-17) mg/dL Creatinine 0.43 L (0.52-1.04) mg/dL Estimated GFR > 60 (>60) mL/min BUN/Creatinine Ratio 34.9 H (6-22) Glucose 122 H (80-110) mg/dL Calcium 9.2 (8.4-10.2) mg/dL Total Bilirubin 1.3 (0.2-1.3) mg/dL AST 34 (14-36) IU/L ALT 21 (<35) IU/L Alkaline Phosphatase 78 (38-126) U/L Total Protein 7.3 (6.3-8.2) g/dL Albumin 4.5 (3.5-5.0) g/dL Globulin 2.8 (1.7-4.1) g/dL Albumin/Globulin Ratio 1.6 (1.0-2.8) Urine Color Yellow Urine Appearance Clear Urine pH 5.5 (4.5-8.0) Ur Specific [place] 1.020 (1.000-1.035) Urine Protein Trace H (Negative) Urine Glucose (UA) Negative (Negative) g/dL Urine Ketones 1+ H (NEGATIVE) Urine Occult Blood Negative (Negative) Urine Nitrate Negative (Negative) Urine Bilirubin Negative (NEGATIVE) Urine Urobilinogen 0.2 (0.2) E.U./dL Ur Leukocyte Esterase Negative (NEGATIVE) Urine RBC None seen (0-5/HPF) Urine WBC None seen (0-5/HPF) Ur Squamous Epith Cells 0-1 /hpf (0-5/HPF) Urine Bacteria Few (2-10) H (None) Urine Mucus 2+ H (Negative) Ur Culture Indicated? Cult not indicated Vol Urine Centrifuged 10ml (spun) Blood Type A Positive Antibody Screen Negative Imaging Data CT scan - abdomen/pelvis: Radiologist's Impression: [place] [address] CT Scan Report Signed Patient: Humera Jackman MR#: [id number] : 1935 Acct:[id number] Age/Sex: 88 / F Date of Service: 11/27/23 Loc: ED Accession Number: [id number] Procedure: CT abdomen pelvis w con Ordering Provider: Whitney Oneal D.O. PROCEDURE: CT ABDOMEN PELVIS W CON INDICATIONS: urinary retention/blood stool, urinary retention TECHNIQUE: After the administration of intravenous contrast, axial sections acquired from the lung bases to the pubic symphysis. Coronal and sagittal reformats were performed. For radiation dose reduction, the following was used: automated exposure control, adjustment of mA and/or kV according to patient size. COMPARISON: None. FINDINGS: Image quality: Diagnostic. Lower Chest: Large right pleural effusion. ABDOMEN: Liver: No solid mass. Hepatic cysts. Gallbladder: No radiopaque gallstones or wall thickening. Biliary ducts: No biliary dilation. Pancreas: No ductal dilation. Spleen: Size is within normal limits. Calcified granuloma. Adrenal Glands: No adrenal nodules. Kidneys and Ureters: No hydronephrosis. No solid mass. No complex renal cystic lesion which requires follow up. Stomach and Bowel: Large colonic stool load and massive rectal stool load. No abnormal rectal wall thickening. Peritoneum: Free-fluid surrounding the rectum. Ventral Wall: No significant ventral hernia. Abdominal Nodes: No retroperitoneal or mesenteric adenopathy by size criteria. Vessels: Aorta and inferior vena cava are normal in size. PELVIS: Pelvic Organs: Unremarkable. Bladder: Puckett catheter within the urinary bladder. Pelvic Nodes: No enlarged lymph nodes. Miscellaneous: No inguinal hernias are seen. Bones: No aggressive osseous abnormality. Degenerative disc disease of the lumbar spine. IMPRESSION: Large colonic stool load and massive rectal stool load, without abnormal rectal wall thickening at this time. Mesorectal edema is present. As a result, early stercoral proctitis is a consideration. Large right pleural effusion. Dictated by: Malvin Ohsea M.D. on 11/27/2023 at 15:45 Approved by: Malvin Oshea M.D. on 11/27/2023 at 15:50 ECG Data Attestation: I personally reviewed and interpreted this ECG as follows: Interpretation: AFib rate of 94 QRS 86 QTC 475. Nonspecific change. [facility] Narrative Medical decision making narrative: 88-year-old female with what sounds like urinary retention likely secondary to constipation with some fecal incontinence associated with her constipation. Patient does have a history of back pain but no other red flag symptoms she does not have any pain numbness or tingling down her extremities no saddle anesthesia. Patient did have labs white count of 10.1 hemoglobin of 14 platelets of 260. Sodium is 126 with a potassium of 492 chloride, CO2 of 26 BUN of 15 with a creatinine of 0.43 glucose of 122 with otherwise normal LFTs. Nursing had difficulties with Puckett catheter placement, was evaluated by myself and after two attempts was able to place coude catheter with immediate urine out. Patient immediately had out about 600 mL of yellow urine with improvement of discomfort. Patient also on digital rectal exam had a large amount of stool this was chaperoned by VALERI Dubois. Patient received an enema. Imaging shows right pleural effusion, large colonic stool rolled and massive rectal stool load, no abnormal rectal wall thickening free fluid surrounding the rectum Puckett catheter in the bladder. Has resolved early stercoral proctitis as a consideration. Patient had enema in department. Did not have any output. She is much more comfortable after Puckett catheter. Discussed digital disimpaction patient was amenable but after having to wait secondary to multiple critical patients in the department she elected to go home. Discussed if she has not had a bowel movement 24 hours she needs to return Given Flomax, she is several stool softeners and was given script for Colace as well and a bottle of magnesium citrate, dietary changes and to hydrate. Discussed with patient and her daughter Discharge Plan Departure Patient Disposition: Home Clinical Impression: Acute urinary retention, Constipation, Pleural effusion Instructions: How to Care for Your Puckett Catheter -- Female, DI for Urinary Retention in Women Activity Restrictions/Additional Instructions: Please follow up with Urology in the next week to have your catheter removed. Please call for an appointment. If they can not follow with you you can follow up with primary care as an additional option. I suspect your urinary retention is because your quite constipated. You do need to have a bowel movement if you have not had 1 in 24 hours you should return or see your physician. Make sure you are drinking plenty of fluids or the stool softeners will help. High-fiber foods and fruits such as prunes, watermelon or William's would also be helpful. Take Flomax once daily until gone. Take Colace 1-2 tablets daily to help with bowel movements. You can also take senna with this medication. Drink 1/2 bottle of magnesium citrate wait 4-5 hours if no changes drink the 2nd half of the bottle. Prescription to [facility] Please return for fevers, new abdominal back or flank, if you have not had a bowel movement in 24 hours, lightheadedness or passing out, vomiting or other new or concerning changes. Prescriptions: New tamsulosin [Flomax] 0.4 mg capsule 0.4 mg PO DAILY Qty: 10 0RF docusate sodium [Colace] 100 mg capsule 100 mg PO DAILY Qty: 10 0RF No Action azithromycin 250 mg tablet See Rx Instructions PO .COMPLEX Qty: 6 0RF Rx Instructions: For 250 mg dose pack: take 500 mg today (day 1), then 250 mg for 4 days (days 2-5) orally; multivitamin [Multiple Vitamins] 1 EACH tablet 1 tab PO QDAY Qty: 0 Eliquis 5 mg tablet 5 mg PO BID Qty: 180 3RF metoprolol succinate 50 mg tablet extended release 24 hr 50 mg PO BID Qty: 180 3RF melatonin 5 mg Tablet 5 mg PO BEDTIME PRN (Reason: Sleep) ascorbic acid (vitamin C) [Vitamin C] 500 mg Tablet 500 mg PO DAILY zinc 50 mg Capsule 50 mg PO DAILY acetaminophen [Tylenol Extra Strength] 500 mg tablet 1,000 mg PO Q6H PRN (Reason: Pain (Scale Score 4-6)) cholecalciferol (vitamin D3) 50 mcg (2,000 unit) capsule 50 mcg PO DAILY cyclobenzaprine 5 mg tablet 5 mg PO BID PRN (Reason: muscle spasm) Qty: 60 1RF Referrals: Jude Choe MD [Primary Care Provider] - Dipesh Lira MD [Physician] - Stand Alone Forms: Patient Portal/API
[2023-11-27] MEDS: SODIUM CHLORIDE 0.9% 1,000 ML 1000 ML IV (14:20)
--- NOTE | 2023-11-27 14:42 | DI.CT.S_ITS ---
PROCEDURE: CT ABDOMEN PELVIS W CON INDICATIONS: urinary retention/blood stool, urinary retention TECHNIQUE: After the administration of intravenous contrast, axial sections acquired from the lung bases to the pubic symphysis. Coronal and sagittal reformats were performed. For radiation dose reduction, the following was used: automated exposure control, adjustment of mA and/or kV according to patient size. COMPARISON: None. FINDINGS: Image quality: Diagnostic. Lower Chest: Large right pleural effusion. ABDOMEN: Liver: No solid mass. Hepatic cysts. Gallbladder: No radiopaque gallstones or wall thickening. Biliary ducts: No biliary dilation. Pancreas: No ductal dilation. Spleen: Size is within normal limits. Calcified granuloma. Adrenal Glands: No adrenal nodules. Kidneys and Ureters: No hydronephrosis. No solid mass. No complex renal cystic lesion which requires follow up. Stomach and Bowel: Large colonic stool load and massive rectal stool load. No abnormal rectal wall thickening. Peritoneum: Free-fluid surrounding the rectum. Ventral Wall: No significant ventral hernia. Abdominal Nodes: No retroperitoneal or mesenteric adenopathy by size criteria. Vessels: Aorta and inferior vena cava are normal in size. PELVIS: Pelvic Organs: Unremarkable. Bladder: Puckett catheter within the urinary bladder. Pelvic Nodes: No enlarged lymph nodes. Miscellaneous: No inguinal hernias are seen. Bones: No aggressive osseous abnormality. Degenerative disc disease of the lumbar spine. IMPRESSION: Large colonic stool load and massive rectal stool load, without abnormal rectal wall thickening at this time. Mesorectal edema is present. As a result, early stercoral proctitis is a consideration. Large right pleural effusion. Dictated by: Malvin Oshea M.D. on 11/27/2023 at 15:45 Approved by: Malvin Oseha M.D. on 11/27/2023 at 15:50
[2023-11-27 14:54] LABS: Appearance Urine UA CLEAR; Bilirubin Urine UA NEGATIVE (NEGATIVE); Color Urine UA YELLOW; Glucose Urine UA NEGATIVE (Negative); Ketones Urine UA 1+ (NEGATIVE); Leukocyte Esterase Urine UA NEGATIVE (NEGATIVE); Nitrite Urine UA NEGATIVE (Negative); Occult Blood Urine UA NEGATIVE (Negative); Protein Urine UA TRACE (Negative); Urobilinogen Urine UA 0.2 E.U./dL (0.2); pH Urine UA 5.5 (4.5-8.0)
[2023-11-27] MEDS: MINERAL OIL 1 EACH ENEMA PR (14:57)
[2023-11-27 15:06] LABS: Bacteria Urine Few (2-10); Culture Indicated Urine Cult Not Indicated; Mucus Urine 2+ (Negative); RBC Urine None Seen (0-5/HPF); Squamous Epithelial Cell Urine 0-1 /HPF (0-5/HPF); Urine Volume 10mL (spun); WBC Urine None Seen (0-5/HPF)
[2023-11-27] MEDS: MAGNESIUM CITRATE 300 ML SOLUTION PO (18:04)
== END 2023-11-27 18:48 | disposition home or self-care (01) ==
PROVIDERS: Emergency Provider Emergency Medicine; PCP Family Medicine
DX: R33.8 Other retention of urine (principal); K59.00 Constipation, unspecified; J90 Pleural effusion, not elsewhere classified
CPT/HCPCS: 36415; 51798; 74177; 80053; 81001; 85025; 85610; 85730; 86850; 86900; 86901; 93005; 96361; 96374; 96375; 99284; C9113; J2405; Q9967

== ENCOUNTER 2023-11-28 11:20 | Observation (INO) | payer MEDICARE, OTHER, SELFPAY ==
[2023-11-28] VITALS (7 sets, daily range): BP systolic 132–158; BP diastolic 64–97; PULSE 72–115; RESP 17–20; TEMP 35.8–36.3; O2SAT 93–95; BMI 20.2
--- NOTE | 2023-11-28 11:58 | ED.GENADULT ---
HPI - General Adult General Chief complaint: Abdominal Pain Stated complaint: pain, unable to urinate and have bw Time Seen by Provider: 11/28/23 11:58 History of Present Illness HPI narrative: 88-year-old woman with significant abdominal pain, seen in the emergency department yesterday with full workup and determination that her pain was secondary to significant constipation. She was sent home with a bottle of magnesium citrate. She did drink the whole thing and is having increased pain and still has not had a bowel movement. Because of volumes and acuity yesterday in the emergency department and manual disimpaction was not done. We will see if we are able to facilitate this today. Patient is complaining abdominal pain, some mild nausea after having the magnesium citrate, no fevers, cough, palpitations, headache. Related Data Home Medications Medication Instructions Recorded Confirmed multivitamin (Multiple Vitamins 1 tab PO QDAY ##0 08/17/17 10/10/23 tablet) melatonin 5 mg tablet 5 mg PO BEDTIME PRN Sleep 08/08/18 10/10/23 acetaminophen 500 mg tablet 1,000 mg PO Q6H PRN Pain (Scale 12/15/20 10/10/23 (Tylenol Extra Strength) Score 4-6) cholecalciferol (vitamin D3) 50 50 mcg PO DAILY 05/15/21 10/10/23 mcg (2,000 unit) capsule ascorbic acid (vitamin C) 500 mg 500 mg PO DAILY 05/21/21 10/10/23 tablet (Vitamin C) zinc 50 mg capsule 50 mg PO DAILY 05/21/21 10/10/23 Previous Rx's Medication Instructions Recorded apixaban 5 mg tablet (Eliquis) 5 mg PO BID #180 tabs 09/28/21 metoprolol succinate 50 mg 50 mg PO BID #180 tabs 09/28/21 tablet,extended release 24 hr azithromycin 250 mg tablet See Rx Instructions PO .COMPLEX #6 10/10/23 tabs cyclobenzaprine 5 mg tablet 5 mg PO BID PRN muscle spasm #60 10/10/23 tabs docusate sodium 100 mg capsule 100 mg PO DAILY #10 caps 11/27/23 (Colace) tamsulosin 0.4 mg capsule (Flomax) 0.4 mg PO DAILY #10 caps 11/27/23 Allergies Allergy/AdvReac Type Severity Reaction Status Date / Time tramadol Allergy Intermediate Confusion Verified 11/27/23 12:28 codeine Allergy Mild BODY ITCH Verified 11/27/23 12:28 Review of Systems Review of Systems Narrative: Pertinent positive and negative findings as per HPI Patient History Medical History CTS (carpal tunnel syndrome) A-fib Facet arthropathy, lumbar Scoliosis Breast cancer in female Surgical History Status post laminectomy Family History Father Hypertension Mother Congestive heart failure Social History marital status: Smoking Status: Former smoker alcohol intake: current substance use type: does not use Smoking Status: Former smoker alcohol intake frequency: 0-2 drinks per day Alcohol type: wine Substance Use Type: does not use Exam Initial Vital Signs Initial Vital Signs: Vital Signs Temperature 97.2 F L 11/28/23 11:23 Pulse Rate 75 11/28/23 11:23 Respiratory Rate 18 11/28/23 11:23 Blood Pressure 139/88 11/28/23 11:23 Pulse Oximetry 95 11/28/23 11:23 Oxygen Delivery Method Room Air 11/28/23 11:23 General: Healthy appearing, in mild pain but able to give a complete and coherent history HEENT: Moist mucous membranes, normal sclera with reactive pupils, Respiratory: Lungs are clear to auscultation, no wheezing no rales no rhonchi. Full and symmetrical air movement Cardiac: Regular rate and rhythm Abdomen: Soft, mild diffuse tenderness, distention, no flank pain Skin: Warm and dry, no rashes Neurologic: Grossly neurologically intact with no obvious asymmetries or abnormalities Psych: Cooperative, appropriate insight and affect Course Orders Ordered: Discontinued Medications Lidocaine HCl (Lidocaine Viscous 2% 100 Ml Solution) 30 ml MM NOW ONE Stop: 11/28/23 12:18 Last Admin: 11/28/23 12:28 Dose: 30 ml Documented By: HOWARD Vital Signs Vital signs: Vital Signs - 8 hr 11/28/23 11:23 Temperature 97.2 F L Pulse Rate 75 Respiratory Rate 18 Blood Pressure 139/88 Pulse Oximetry 95 Oxygen Delivery Method Room Air Medical Decision Making [facility] Narrative Medical decision making narrative: CC: Obstipation Data collected from: patient Medical records reviewed: ER note, CT and labs from yesterday for similar problems are reviewed Differential considered: Simple constipation, obstipation, rectal mass obstructing, bowel perforation Exam documented above, pertinent findings include: Moderate abdominal tenderness but no rebound or guarding. She does not have a rectal mass Lab Test results independently reviewed as above. Pertinent findings: CBC, CMP done from yesterday are reviewed and not repeated. Only significant abnormality appreciated was a slightly low sodium at 1:26 a.m. which we have likely corrected with a L of fluid she is already received. Imaging studies independently reviewed: CT scan of the abdomen and pelvis was done yesterday. She has an impressive stool burden. Radiology interpretation also notes mesorectal edema with possibility of early stercoral proctitis Consultations: Care is reviewed with Dr. Webster, general surgery. Discussed the possibility of sedation in the ER and continued attempts with manual decompression and concerns for bowel perforation of doing that. His recommendation was admission with enemas q.4 hours until bowels began to move. He did not recommend any additional oral options as she has already had the magnesium citrate that was not effective. Treatments: Manual disimpaction with minimal stool removed Discussion: 88-year-old woman with impressive obstipation and concern for bowel perforation. Manual disimpaction has been ineffective, enema in the emergency department has been ineffective, magnesium citrate orally last night has been ineffective. We will admit to Dr. Choe for continued enemas approximately every 4 hours until bowels do begin to move. If there is concerns for worsening or any type of perforation Dr. Webster can again be re-contacted. Dr. Choe has been contacted and agrees to admission. Patient is aware of admission and reviewed findings with her son and daughter with questions answered as well. Discharge Plan Departure Patient Disposition: Admitted as Observation Clinical Impression: Obstipation, Stercoral colitis Prescriptions: No Action azithromycin 250 mg tablet See Rx Instructions PO .COMPLEX Qty: 6 0RF Rx Instructions: For 250 mg dose pack: take 500 mg today (day 1), then 250 mg for 4 days (days 2-5) orally; multivitamin [Multiple Vitamins] 1 EACH tablet 1 tab PO QDAY Qty: 0 Eliquis 5 mg tablet 5 mg PO BID Qty: 180 3RF metoprolol succinate 50 mg tablet extended release 24 hr 50 mg PO BID Qty: 180 3RF melatonin 5 mg Tablet 5 mg PO BEDTIME PRN (Reason: Sleep) ascorbic acid (vitamin C) [Vitamin C] 500 mg Tablet 500 mg PO DAILY zinc 50 mg Capsule 50 mg PO DAILY tamsulosin [Flomax] 0.4 mg capsule 0.4 mg PO DAILY Qty: 10 0RF docusate sodium [Colace] 100 mg capsule 100 mg PO DAILY Qty: 10 0RF acetaminophen [Tylenol Extra Strength] 500 mg tablet 1,000 mg PO Q6H PRN (Reason: Pain (Scale Score 4-6)) cholecalciferol (vitamin D3) 50 mcg (2,000 unit) capsule 50 mcg PO DAILY cyclobenzaprine 5 mg tablet 5 mg PO BID PRN (Reason: muscle spasm) Qty: 60 1RF Referrals: Jude Choe MD [Primary Care Provider] -
[2023-11-28] MEDS: LIDOCAINE VISCOUS 2% 100 ML SOLUTION 30 ML MM (12:28)
[2023-11-28] MEDS: FLEETS ENEMA 1 EACH PR ×3 (13:23→22:20)
[2023-11-28] MEDS: SODIUM CHLORIDE 0.9% 1,000 ML 100 ML IV (15:12)
[2023-11-28] MEDS: ACETAMINOPHEN 325 MG TABLET 975 MG PO ×2 (15:13→21:51)
[2023-11-28] MEDS: polyethylene glycoL 3350 17 GM POWD.PACK PO ×2 (15:13→21:52)
--- NOTE | 2023-11-28 17:10 | DI.RAD.S_ITS ---
PROCEDURE: XR CHEST 2V INDICATIONS: short of breath TECHNIQUE: 2 views of the chest were acquired. COMPARISON: [facility], CR, XR CHEST 2V, 10/10/2023, 10:41. [facility], CR, XR CHEST 2V, 06/11/2021, 11:56. FINDINGS: Surgical changes and devices: None. Lungs and pleura: Persistent mild to moderate right effusion. Underlying opacity is seen. Left lung base atelectasis. Mildly prominent interstitium diffusely. Mediastinum: Cardiomegaly Bones and chest wall: Degenerative findings. IMPRESSION: [id number] right persistent effusion. Underlying airspace opacity versus atelectasis. Left lung base atelectasis. Mildly prominent interstitium diffusely, likely edema. Consider future imaging surveillance to assess for resolution. Dictated by: Mike Wade M.D. on 11/28/2023 at 19:04 Approved by: Mike Wade M.D. on 11/28/2023 at 19:05
--- NOTE | 2023-11-28 17:10 | P.HP_ITS ---
History of Present Illness History of Present Illness Date Patient Seen: 11/28/23 Time Patient Seen: 17:11 Chief complaint: pain, unable to urinate and have bw Narrative: 88-year-old female with past medical history of chronic low back pain due to osteoarthritis breast cancer on the right gastroesophageal reflux atrial fibrillation on anticoagulation presents with problems with constipation and noon ability to urinate. Patient's symptoms have been present for about 1 week. She has had increasing problems with abdominal distention and discomfort. Patient states it has been quite sometime since she has had a regular bowel movement. It is noticed that it has been more frequent. Patient had abdominal pain was seen in the emergency department and evaluated for constipation and was given an enema and sent home. She is also given magnesium citrate. Patient went home took magnesium citrate returned today because constipation did not resolve and urination difficulties had progressed. Patient states at home she was doing stool softener and fiber supplement despite this things were not working well. Patient has not had fevers or chills. She has mild increased work of breathing. She recently had pneumonia and had a chest x-ray which showed she had a mild pleural effusion. Her heart rates been normal she has been taking her anticoagulation she has had no falls no headaches she has a good historian. [facility] Medical History CTS (carpal tunnel syndrome) A-fib Facet arthropathy, lumbar Scoliosis Breast cancer in female Surgical History Status post laminectomy Family History Father Hypertension Mother Congestive heart failure Social History marital status: household members: none Smoking Status: Former smoker alcohol intake: current substance use type: does not use Meds Home Medications and Allergies Home Medications Medication Instructions Recorded Confirmed Type multivitamin (Multiple Vitamins 1 tab PO QDAY ##0 08/17/17 11/28/23 History tablet) melatonin 5 mg tablet 5 mg PO BEDTIME PRN Sleep 08/08/18 11/28/23 History cholecalciferol (vitamin D3) 50 50 mcg PO DAILY 05/15/21 11/28/23 History mcg (2,000 unit) capsule ascorbic acid (vitamin C) 500 mg 500 mg PO DAILY 05/21/21 11/28/23 History tablet (Vitamin C) zinc 50 mg capsule 50 mg PO DAILY 05/21/21 11/28/23 History apixaban 5 mg tablet (Eliquis) 5 mg PO BID #180 tabs 09/28/21 11/28/23 Rx metoprolol succinate 50 mg 50 mg PO BID #180 tabs 09/28/21 11/28/23 Rx tablet,extended release 24 hr docusate sodium 100 mg capsule 100 mg PO DAILY #10 caps 11/27/23 11/28/23 Rx (Colace) tamsulosin 0.4 mg capsule (Flomax) 0.4 mg PO DAILY #10 caps 11/27/23 11/28/23 Rx gabapentin 300 mg capsule 600 mg PO BEDTIME 11/28/23 11/28/23 History Allergies Allergy/AdvReac Type Severity Reaction Status Date / Time tramadol Allergy Intermediate Confusion Verified 11/27/23 12:28 codeine Allergy Mild BODY ITCH Verified 11/27/23 12:28 Exam Vital Signs (past 8 hours): - 11/28/23 11:23 11/28/23 13:26 Temperature 97.2 F L Pulse Rate 75 72 Respiratory Rate 18 18 Blood Pressure 139/88 133/77 Pulse Oximetry 95 94 Oxygen Delivery Method Room Air Room Air Oxygen Delivery Method Room Air Narrative Exam Narrative: Gen.: Alert no apparent distress HEENT: Pupils equal round and reactive or mucosa is moist Cardio: S1-S2 irregular rate and rhythm Respiratory: Mild increased work of breathing some decreased breath sound at lung bases bilateral. No wheezes or crackles Abdomen: Soft mild distention no rebound or guarding Extremities: No significant edema full range of motion good strength Assessment & Plan Assessment and plan (1) Stercoral colitis: Status: Acute (2) Obstipation: Status: Acute (3) Pleural effusion: Status: Acute (4) Acute urinary retention: Status: Acute Plan Patient with obstipation CT scan of rectal area shows stercoral colitis patient has been unsuccessful in evacuation of fecal material despite home remedies. Patient is admitted further to the hospital because of ongoing abdominal pain distention discomfort and inability to urinate. Discussion with general surgery recommended q.4 hours enema. Starting MiraLax 1 scoop twice daily. Ambulation as tolerated. Monitor closely for signs of hypotension worsening abdominal pain or fevers or chills. Acute urinary retention. Patient unable to urinate Puckett catheter was placed today. Most likely due to significant fecal burden in the colon area. Would anticipate this to get better once we can get her cleaned out. Urinary catheter will be left in place at this point. Remote history of pneumonia with right-sided pleural effusion. Rechecked tests x-ray patient is mildly tachypneic on examination. Will make sure that there has been resolution of the pleural effusion if not may need further diagnostic workup and evaluation Atrial fibrillation chronic. Patient's heart rates well controlled. Patient's appropriately anticoagulated this time and will continue this while the patient is in the hospital today. Disposition plan q.4 hours enemas with oral med MiraLax. Monitor for signs and symptoms of worsening stercoral colitis urinary catheterization in place to manage acute urinary retention follow-up chest x-ray for pleural effusion. Quality VTE Deep Vein Thrombosis/Pulmonary Embolism Present on Admission: No
[2023-11-28] MEDS: APIXABAN 5 MG TABLET PO (21:51)
[2023-11-28] MEDS: METOPROLOL ER 50 MG TABLET PO (21:51)
[2023-11-29] VITALS: BP 137/79; PULSE 113; RESP 17; TEMP 35.8; O2SAT 93
[2023-11-29 04:00] VITALS: BP 111/73; PULSE 107; RESP 17; TEMP 36; O2SAT 93
[2023-11-29 06:11] LABS: Add Manual Diff / Slide Review NO; Basophils Absolute Auto 0 /uL (0-100); Basophils Percent Auto 0.4 % (0-2); Eosinophils Absolute Auto 0 /uL (0-450); Eosinophils Percent Auto 0.4 % (2-4); Hematocrit 38.6 % (36-46); Hemoglobin 13.2 g/dL (12.0-16.0); Lymphocytes Absolute Auto 600 /uL (1100-4500); Lymphocytes Percent Auto 9.5 % (25-40); Mean Corpuscular HGB Conc 34.3 % (30-36); Mean Corpuscular Hemoglobin 33.4 PG (26-34); Mean Corpuscular Volume 97.3 fL (80-100); Monocytes Absolute Auto 800 /uL (0-900); Monocytes Percent Auto 11.3 % (3-14); Neutrophils Absolute Auto 5300 /uL (1500-7000); Neutrophils Percent Auto 78.4 % (50-75); Platelet Count 218 X10^3/uL (150-400); Red Blood Cell Count 3.96 X10^6/uL (4.0-5.2); Red Cell Distribution Width 13.8 % (11.6-14.8); White Blood Cell Count 6.8 X10^3/uL (4.5-11.0)
[2023-11-29 06:18] LABS: BUN Creatinine Ratio 33.3 (6-22); Blood Urea Nitrogen 12 mg/dL (7-17); Calcium 8.5 mg/dL (8.4-10.2); Carbon Dioxide 30 mmol/L (22-32); Chloride 98 mmol/L (98-107); Estimated Glomerular Filt Rate > 60 mL/min (>60); Glucose 104 mg/dL (80-110); HEMOLYSIS < 15 (0-50); Potassium 3.8 mmol/L (3.4-5.1); Sodium 130 mmol/L (137-145)
[2023-11-29] MEDS: ACETAMINOPHEN 325 MG TABLET 975 MG PO (06:35)
[2023-11-29 08:00] VITALS: BP 124/87; PULSE 107; RESP 16; TEMP 36.1; O2SAT 94
[2023-11-29 09:57] VITALS: BP 124/87
[2023-11-29] MEDS: METOPROLOL ER 50 MG TABLET PO (09:57)
[2023-11-29] MEDS: APIXABAN 5 MG TABLET PO (09:57)
--- NOTE | 2023-11-29 10:15 | PM.DS.1 ---
History of Present Illness History of Present Illness Chief complaint: pain, unable to urinate and have bw Narrative: 88-year-old female with past medical history of chronic low back pain due to osteoarthritis breast cancer on the right gastroesophageal reflux atrial fibrillation on anticoagulation presents with problems with constipation and noon ability to urinate. Patient's symptoms have been present for about 1 week. She has had increasing problems with abdominal distention and discomfort. Patient states it has been quite sometime since she has had a regular bowel movement. It is noticed that it has been more frequent. Patient had abdominal pain was seen in the emergency department and evaluated for constipation and was given an enema and sent home. She is also given magnesium citrate. Patient went home took magnesium citrate returned today because constipation did not resolve and urination difficulties had progressed. Patient states at home she was doing stool softener and fiber supplement despite this things were not working well. Patient has not had fevers or chills. She has mild increased work of breathing. She recently had pneumonia and had a chest x-ray which showed she had a mild pleural effusion. Her heart rates been normal she has been taking her anticoagulation she has had no falls no headaches she has a good historian. Discharge Providers Provider Date of admission: 11/28/23 13:15 Discharge Date: 12/01/23 Primary care physician: Jude Choe MD Discharge provider: Jude Choe MD Summary Hospital Course Discharge Diagnosis: Obstipation Stercoral colitis Acute urinary retention Right-sided pleural effusion with remote history of pneumonia Chronic atrial fibrillation with anticoagulation Hospital Course: Patient admitted the hospital with severe obstipation and stercoral colitis. Patient was placed on IV fluids. She had q.4 hours enemas. Over the evening patient had passage of a large volume large amount of stool. Since that time patient has had multiple trips to the bathroom. She feels much better. She is does not feel like she has had complete removal the stool. Patient had a Puckett catheter placed as the patient was in acute urinary retention. Assumed due to large caliber stool in the rectum. Patient's Puckett catheter was removed. And patient will be discharged once patient voids. During hospital stay she was eating well vital signs were stable she was afebrile. Patient had rectal pain with hemorrhoids and irritation. Discharge plan will be discharged home. Medications were reviewed with patient and family and care instructions. Patient will follow up on . We will address the patient's pleural effusion as an outpatient. Exam Vital Signs (past 8 hours): - 11/29/23 04:00 11/29/23 08:00 11/29/23 09:57 Temperature 96.8 F L 96.9 F L Pulse Rate 107 H 107 H Respiratory Rate 17 16 Blood Pressure 111/73 124/87 124/87 Pulse Oximetry 93 94 Oxygen Flow Rate 0 0 Oxygen Delivery Method Room Air Oxygen Flow Rate 0 Objective Labs 11/29/23 05:50 11/29/23 05:50 Labs: Laboratory Results - last 24 hr 11/29/23 05:50 WBC 6.8 RBC 3.96 L Hgb 13.2 Hct 38.6 MCV 97.3 MCH 33.4 MCHC 34.3 RDW 13.8 Plt Count 218 Neut % (Auto) 78.4 H Lymph % (Auto) 9.5 L [place] % (Auto) 11.3 Eos % (Auto) 0.4 L Baso % (Auto) 0.4 Neut # (Auto) 5300 Lymph # (Auto) 600 L [place] # (Auto) 800 Eos # (Auto) 0 Baso # (Auto) 0 Sodium 130 L Potassium 3.8 Chloride 98 Carbon Dioxide 30 BUN 12 Creatinine 0.36 L Estimated GFR > 60 BUN/Creatinine Ratio 33.3 H Glucose 104 Calcium 8.5 PFSH Medical History CTS (carpal tunnel syndrome) A-fib Facet arthropathy, lumbar Scoliosis Breast cancer in female Surgical History Status post laminectomy Family History Father Hypertension Mother Congestive heart failure Social History marital status: household members: none Smoking Status: Former smoker alcohol intake: current substance use type: does not use Discharge Plan Discharge Plan Patient Disposition: Home Discharge orders & Medications Prescriptions: New polyethylene glycol 3350 17 gram Powder In Packet 17 gm PO BID Qty: 565 1RF Continued multivitamin [Multiple Vitamins] 1 EACH tablet 1 tab PO QDAY Qty: 0 Eliquis 5 mg tablet 5 mg PO BID Qty: 180 3RF metoprolol succinate 50 mg tablet extended release 24 hr 50 mg PO BID Qty: 180 3RF melatonin 5 mg Tablet 5 mg PO BEDTIME PRN (Reason: Sleep) ascorbic acid (vitamin C) [Vitamin C] 500 mg Tablet 500 mg PO DAILY zinc 50 mg Capsule 50 mg PO DAILY gabapentin 300 mg capsule 600 mg PO BEDTIME cholecalciferol (vitamin D3) 50 mcg (2,000 unit) capsule 50 mcg PO DAILY Discontinued tamsulosin [Flomax] 0.4 mg capsule 0.4 mg PO DAILY Qty: 10 0RF docusate sodium [Colace] 100 mg capsule 100 mg PO DAILY Qty: 10 0RF Follow up/Referrals: Jude Choe MD [Primary Care Provider] - Visit Report/Discharge Packet Instructions: Hemorrhoids, Increased Dietary Fiber May Improve Constipation Conditions With Pelvic Mario, DI for Constipation, DI for Colitis Stand Alone Forms: Patient Portal/API, Stroke Signs & Symptoms Discharge Data Primary Care Provider: Jude Choe Attending Provider: Jude Choe Admit Date/Time: 11/28/23 13:15 Quality VTE Deep Vein Thrombosis/Pulmonary Embolism Present on Admission: No I[facility] PROFEE Charge Codes Discharge inpatient/observation: [id number]
[2023-11-29 12:00] VITALS: BP 130/82; PULSE 92; RESP 16; TEMP 35.9; O2SAT 95
[2023-11-29] MEDS: PHENYLEPH/MINERAL OIL/PETROLAT 57 GM OINT 1 APPLIC PR (13:34)
--- NOTE | 2023-11-29 15:12 | CM.DANOTE ---
DCP Assessment Note Pt is an 88yo F here following a week of constipation/urinary retention. Mild Pleural effusion. PCP Daija Payer Medicare and [employer] HEAT TRANSFER TECHNICIAN reviewed EMR. Per chart review, pt had enemas and has since has had large volumes of BMs. Per Daija's dc summary, would like to f/u with Pleural effusion in OP setting. HEAT TRANSFER TECHNICIAN met with pt and dtr Nithya in room ([place]). Pt lives indep in [place]/ambulates without DME/drives at baseline. Pt son Lizabeth lives locally and supports as needed. 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 Pt/dtr deny any current DCP/CM needs at this time. HEAT TRANSFER TECHNICIAN answered ferry terminal agent plan, SNF, and HH questions to best of ability. Per chart review, pt cleared to dc home after voiding independently. Plan: home with dtr support today anticipated. No CM needs identified at this time. CM team will continue to follow as needed. NANO [place] Discharge Planning/Care Management Advanced directive, confirm from FAMILY Start: 11/28/23 15:13 Freq: Q24H Status: Active Protocol: Document 11/29/23 00:02 BR (Rec: 11/29/23 00:03 BR [id number]) Advance Directive, confirm on record Time 00:03 Person contacted pt Copy received No CM Discharge Assessment Start: 11/29/23 15:11 Freq: Status: Active Protocol: Document 11/29/23 15:11 SL (Rec: 11/29/23 15:12 SL [id number]) Discharge Planning Assessment Assigned Nylon Machine Operator NANO [place] DPOA/Assigned Designee Name judith Sue Contact Information [phone] Advance Directives? Yes Advance Directives on File No History Provided By Patient Prior Living Arrangements House Household Members none Type of transporation used prior to Drives own vehicle admit Independent with ADL's Yes Is patient alert and oriented? Yes Comment pt recently hired assistance with house cleaning/yard work Barriers to Discharge No Comment dc pending voiding independently Discharge Plan Home Transportation Arrangement family in [place] Referrals Initiated None needed Whiteboard Updated in Patient Room with Yes name and ext. # of Nylon Machine Operator Review Status In Process Please Provide Date Initial DC 11/29/23 Assessment Was Performed Next Review Type Continued Stay Review
--- NOTE | 2023-11-29 16:32 | PC.NURSE ---
Pt is dressed and ready for discharge home with Daughter Nithya. IV has been removed. Pt has voided post huang removal. Went over d/c instructions with Pt and Daughter-discussed d/c meds, time of last dose, reviewed stroke education, discussed drinking plenty of fluids to prevent constipation or dehydration, discussed bowel meds, and follow up with Dr. Choe next week. Pt denied further questions and was taken out via w/c by PAINTER SHIPYARD to POV with Daughter and all belongings.
== END 2023-11-29 16:37 | disposition home or self-care (01) ==
LOC: ED 13:15 → AC 13:15
PROVIDERS: Admitting Provider Family Medicine; Emergency Provider Emergency Medicine; PCP Family Medicine; Visit Provider Family Medicine
DX: K59.00 Constipation, unspecified (principal); K52.89 Other specified noninfective gastroenteritis and colitis; J90 Pleural effusion, not elsewhere classified; R33.8 Other retention of urine; I48.20 Chronic atrial fibrillation, unspecified
CPT/HCPCS: 36415; 71046; 80048; 85025; 99222; 99238; 99282; G0378

== ENCOUNTER → 2023-12-15 | Outpatient (CLI) | payer MEDICARE, OTHER, SELFPAY ==
[2023-11-29 16:54] VITALS: BMI 20.2
--- NOTE | 2023-12-15 | DI.MG.S_ITS ---
UNILATERAL LEFT DIGITAL DIAGNOSTIC MAMMOGRAM 3D/2D WITH ADDITIONAL VIEWS: 12/15/2023 CLINICAL: Additional evaluation requested from prior study. Comparison is made to exams dated: 11/18/2023 mammogram, 10/12/2022 mammogram, and 10/06/2021 mammogram - [facility]. There are scattered areas of fibroglandular density in the left breast (category b / 25%-50% glandular tissue). With focal spot compression, and additional views, the abnormality seen on in the left breast in the anterior depth central to the nipple screening mammography resolves. This is consistent with overlapping fibroglandular tissue. No significant masses, calcifications, or other findings are seen in the breast. IMPRESSION: INCOMPLETE: NEEDS ADDITIONAL IMAGING EVALUATION Resolution of screening mammography abnormality with additional views. Ultrasound evaluation to confirm resolution is recommended and was performed immediately following this exam. This exam was interpreted at Station ID: [id number]. NOTE: For mammograms, a report in lay terms will be sent to the patient. Approximately 15% of breast malignancies will not be visualized mammographically. In the management of a palpable breast mass, a negative mammogram must not discourage biopsy of a clinically suspicious lesion. Electronically Signed By: Akua pittman/:12/15/2023 10:26:31 copy to: Jude Choe copy to: AWILDA WISE ACR BI-RADS Category 0: Incomplete [id number]
--- NOTE | 2023-12-15 09:17 | DI.US.S_ITS ---
LIMITED ULTRASOUND OF LEFT BREAST: 12/15/2023 CLINICAL: Patient returns today to evaluate a focal asymmetry in the left breast. Comparison is made to exams dated: 12/15/2023 mammogram, 11/18/2023 mammogram, 10/12/2022 mammogram, 10/06/2021 mammogram, 10/14/2020 mammogram, and 10/04/2019 mammogram - [facility]. Color flow and real-time ultrasound of the left breast 12 o'clock, and retroareolar regions were performed. Kenney scale images of the real-time examination were reviewed. No significant abnormalities were seen sonographically in the left breast. Specifically, no finding to correspond to the patient's resolved screening mammographic abnormality. IMPRESSION: NEGATIVE There is no sonographic correlate to the patient's resolved mammographic finding, and no evidence of malignancy. Return to annual mammogram screening schedule is recommended. Findings and recommendations were conveyed to the patient at time of exam. This exam was interpreted at Station ID: [id number]. Electronically Signed By: Akua pittman/:12/15/2023 10:27:31 copy to: Jude Choe copy to: AWILDA WISE letter sent: Normal Exam Ultrasound BI-RADS: 1 Negative
== END ==
LOC: MAMMO 09:16
PROVIDERS: PCP Family Medicine; Referring Provider Family Medicine; Visit Provider Family Medicine
DX: R92.8 Other abnormal and inconclusive findings on diagnostic imaging of breast (principal); R92.322 Mammographic fibroglandular density, left breast
CPT/HCPCS: 76642; 77065; G0279

== ENCOUNTER → 2023-12-21 08:45 | Outpatient (CLI) | payer MEDICARE, OTHER, SELFPAY ==
[2023-11-29 16:54] VITALS: BMI 20.2
--- NOTE | 2023-12-21 | PATH_ITS ---
Note [facility] Accession Number: [id number] TESTS RESULT FLAG UNITS REF RANGE LAB Clinician Provided Cytology Information No. of containers..01 Other (Miscellaneous) Source: PLEURAL FLUID DIAGNOSIS: PLEURAL FLUID, THORACENTESIS. NEGATIVE FOR MALIGNANT CELLS. BENIGN MESOTHELIAL CELLS ARE PRESENT. THIS INTERPRETATION INCLUDES EVALUATION OF A CELL BLOCK. Pathologist ICD10: J90 Signed out by: Elvis Dupont MD, Pathologist NPI- [id number] Performed by: Nhan Mtz, Exit Booth Agent ([facility]) Gross description: 50 CC, YELLOW, CLEAR RECEIVED: FRESH IN BLUE CAP CONTAINER.VO /VDU 12/22/2023 0847 Local FLAG LEGEND: L-Low Normal,H-High Normal,LL-Alert Low,HH-Alert High <-Panic Low,>-Panic High,A-Abnormal,AA-Critical Abnormal Performed at: 01 =Z [employer], [place] [address] Darian Alonso MD, Specimen Comment: A duplicate report has been generated due to demographic updates. Performed at: [facility] [address], [place], [place] [id number] MD Darian Alonso MD Phone: [phone]
--- NOTE | 2023-12-21 08:46 | DI.US.S_ITS ---
PROCEDURE: US THORACENTESIS INDICATIONS: pleural effusion TECHNIQUE: The indications, alternatives, benefits, risks, and complications of the procedure were explained to the patient. Written informed consent was obtained and placed in the chart. The chest was examined sonographically, and an appropriate site was chosen for thoracentesis. The skin was prepared and draped in the usual sterile fashion, and 1% lidocaine was infiltrated from the skin down through the pleural surface. A 19-gauge catheter-covered needle was then introduced into the pleural space, the catheter was advanced and the needle was withdrawn, and thereafter pleural fluid was aspirated. The catheter was then removed and a dressing was applied. COMPARISON: [facility], CR, XR CHEST 2V, 11/28/2023, 18:07. [facility], CR, XR CHEST 1V, 12/21/2023, 8:51. FINDINGS: Access site: Right hemithorax. Needle: One-Step centesis catheter with introducer needle. Fluid volume and description: Clear, straw-colored Fluid sent for diagnostic testing: Yes Medications: 1% lidocaine for local anaesthesia. Complications: None; post-procedural chest radiograph is pending to assess for pneumothorax. IMPRESSION: Successful ultrasound-guided thoracentesis. Dictated by: Kelly Ramirez M.D. on 12/21/2023 at 10:25 Approved by: Kelly Ramirez M.D. on 12/21/2023 at 10:25
--- NOTE | 2023-12-21 09:40 | DI.RAD.S_ITS ---
PROCEDURE: XR CHEST 1V INDICATIONS: post thoracentesis images TECHNIQUE: One view of the chest was acquired. COMPARISON: [facility], CR, XR CHEST 2V, 11/28/2023, 18:07. FINDINGS: Surgical changes and devices: None. Lungs and pleura: Interval decrease in right pleural effusion. No pneumothorax. Resolution of interstitial pulmonary edema. Mediastinum: Mediastinal contours appear normal. Heart size is normal. Bones and chest wall: No suspicious bony lesions. Overlying soft tissues appear unremarkable. IMPRESSION: No pneumothorax post right thoracentesis. Interval resolution of pulmonary edema. Dictated by: Daniel Jaeger M.D. on 12/21/2023 at 10:09 Approved by: Daniel Jaeger M.D. on 12/21/2023 at 10:10
== END ==
LOC: US 08:46
PROVIDERS: PCP Family Medicine; Referring Provider Family Medicine; Visit Provider Family Medicine
DX: J90 Pleural effusion, not elsewhere classified (principal)
CPT/HCPCS: 32555; 71045

== ENCOUNTER → 2024-01-16 11:36 | Outpatient (CLI) | payer MEDICARE, OTHER, SELFPAY ==
[2023-11-29 16:54] VITALS: BMI 20.2
--- NOTE | 2024-01-16 11:38 | DI.RAD.S_ITS ---
PROCEDURE: XR CHEST 2V INDICATIONS: plural effusion TECHNIQUE: 2 views of the chest were acquired. COMPARISON: [facility], CR, XR CHEST 1V, 12/21/2023, 8:51. [facility], CR, XR CHEST 2V, 11/28/2023, 18:07. FINDINGS: Surgical changes and devices: None. Lungs and pleura: [id number] right pleural effusion, slightly increased from prior imaging. There is also increased underlying opacities. No drainable left effusion. Mediastinum: Heart size is at the upper limit of normal. Cardiomediastinal contours are unchanged Bones and chest wall: Degenerative findings. IMPRESSION: Slightly increased mild to moderate right effusion and underlying opacities. Dictated by: Mike Wade M.D. on 01/16/2024 at 15:40 Approved by: Mike Wade M.D. on 01/16/2024 at 15:41
== END ==
PROVIDERS: PCP Family Medicine; Referring Provider Family Medicine; Visit Provider Family Medicine
DX: J90 Pleural effusion, not elsewhere classified (principal)
CPT/HCPCS: 71046

== ENCOUNTER → 2024-01-23 11:19 | Outpatient (CLI) | payer MEDICARE, OTHER, SELFPAY ==
[2023-11-29 16:54] VITALS: BMI 20.2
[2024-01-23 12:24] LABS: Add Manual Diff / Slide Review NO; Basophils Absolute Auto 0 /uL (0-100); Basophils Percent Auto 0.5 % (0-2); Eosinophils Absolute Auto 100 /uL (0-450); Eosinophils Percent Auto 0.9 % (2-4); Hematocrit 40.3 % (36-46); Hemoglobin 13.8 g/dL (12.0-16.0); Lymphocytes Absolute Auto 800 /uL (1100-4500); Lymphocytes Percent Auto 11.2 % (25-40); Mean Corpuscular HGB Conc 34.2 % (30-36); Mean Corpuscular Hemoglobin 34.1 PG (26-34); Mean Corpuscular Volume 99.8 fL (80-100); Monocytes Absolute Auto 600 /uL (0-900); Monocytes Percent Auto 9.5 % (3-14); Neutrophils Absolute Auto 5300 /uL (1500-7000); Neutrophils Percent Auto 77.9 % (50-75); Platelet Count 266 X10^3/uL (150-400); Red Blood Cell Count 4.04 X10^6/uL (4.0-5.2); White Blood Cell Count 6.8 X10^3/uL (4.5-11.0)
[2024-01-23 12:38] LABS: BUN Creatinine Ratio 23.4 (6-22); Blood Urea Nitrogen 11 mg/dL (7-17); Calcium 9.6 mg/dL (8.4-10.2); Carbon Dioxide 32 mmol/L (22-32); Chloride 94 mmol/L (98-107); Cholesterol 230 mg/dL (140-199); Estimated Glomerular Filt Rate > 60 mL/min (>60); Glucose 96 mg/dL (80-110); HEMOLYSIS < 15 (0-50); Potassium 4.9 mmol/L (3.4-5.1); Sodium 129 mmol/L (137-145); Triglycerides 80 mg/dL (35-150)
[2024-01-23 12:48] LABS: HDL Cholesterol 140 mg/dL (40-60); LDL Cholesterol Calculated 74 mg/dL (<100)
== END ==
LOC: LAB 11:21
PROVIDERS: PCP Family Medicine; Referring Provider Internal Medicine Cardiovascular Disease; Visit Provider Internal Medicine Cardiovascular Disease
DX: Z00.00 Encounter for general adult medical examination without abnormal findings (principal); I48.19 Other persistent atrial fibrillation; Z79.01 Long term (current) use of anticoagulants
CPT/HCPCS: 36415; 80048; 80061; 85025

== ENCOUNTER → 2024-01-24 11:09 | Outpatient (CLI) | payer MEDICARE, OTHER, SELFPAY ==
[2023-11-29 16:54] VITALS: BMI 20.2
[2024-01-24 11:50] LABS: INR 1.3 (0.9-1.3); Prothrombin Time 14.5 SECONDS (9.4-12.5)
--- NOTE | 2024-01-24 14:10 | DI.US.S_ITS ---
PROCEDURE: US THORACENTESIS INDICATIONS: pleural effusion TECHNIQUE: The indications, alternatives, benefits, risks, and complications of the procedure were explained to the patient. Written informed consent was obtained and placed in the chart. The chest was examined sonographically, and an appropriate site was chosen for thoracentesis. The skin was prepared and draped in the usual sterile fashion, and 1% lidocaine was infiltrated from the skin down through the pleural surface. A 19-gauge catheter-covered needle was then introduced into the pleural space, the catheter was advanced and the needle was withdrawn, and thereafter pleural fluid was aspirated. The catheter was then removed and a dressing was applied. COMPARISON: [facility], THORACENTESIS, 12/21/2023, 9:13. FINDINGS: Access site: Right hemithorax. Needle: One-Step centesis catheter with introducer needle. Fluid volume and description: Clear, yellow fluid, 1320 ml. Fluid sent for diagnostic testing: Yes Medications: 1% lidocaine for local anaesthesia. Complications: None; post-procedural chest radiograph is pending to assess for pneumothorax. IMPRESSION: Successful ultrasound-guided thoracentesis. Dictated by: Malvin Oshea M.D. on 01/24/2024 at 15:45 Approved by: Malvin Oshea M.D. on 01/24/2024 at 15:46
== END ==
PROVIDERS: PCP Family Medicine; Referring Provider Family Medicine; Visit Provider Family Medicine
DX: I48.91 Unspecified atrial fibrillation (principal); J90 Pleural effusion, not elsewhere classified
CPT/HCPCS: 32555; 36415; 85610

== ENCOUNTER → 2024-01-24 11:55 | Outpatient (CLI) | payer MEDICARE, OTHER, SELFPAY ==
[2023-11-29 16:54] VITALS: BMI 20.2
== END ==
PROVIDERS: PCP Family Medicine; Visit Provider Family Medicine
DX: J90 Pleural effusion, not elsewhere classified (principal)

== ENCOUNTER → 2024-01-26 11:37 | Outpatient (CLI) | payer MEDICARE, OTHER, SELFPAY ==
[2023-11-29 16:54] VITALS: BMI 20.2
--- NOTE | 2024-01-26 11:39 | DI.RAD.S_ITS ---
PROCEDURE: XR CHEST 2V INDICATIONS: post Thoracentesis 01/24/24 TECHNIQUE: 2 views of the chest were acquired. COMPARISON: [facility], CR, XR CHEST 2V, 01/16/2024, 12:01. FINDINGS: Surgical changes and devices: None. Lungs and pleura: Coarse reticulonodular appearance the right perihilar region and dense opacity in the right lung base with meniscus sign. Trace fluid in the fissure. Left lung is hyperinflated and clear. No evidence of pneumothorax post right thoracentesis. Mediastinum: Mediastinal contours are stable. Heart size is stable. Bones and chest wall: No suspicious bony abnormalities. Soft tissues appear unremarkable. IMPRESSION: Right pleural effusion has moderately decreased compared to the prior study post thoracentesis. No evidence of pneumothorax post procedure. Dictated by: Akua Ferguson M.D. on 01/26/2024 at 21:08 Approved by: Akua Ferguson M.D. on 01/26/2024 at 21:10
== END ==
PROVIDERS: PCP Family Medicine; Referring Provider Family Medicine; Visit Provider Family Medicine
DX: J90 Pleural effusion, not elsewhere classified (principal); R05.9 Cough, unspecified
CPT/HCPCS: 71046

== ENCOUNTER → 2024-01-27 15:28 | Outpatient (CLI) | payer MEDICARE, OTHER, SELFPAY ==
[2023-11-29 16:54] VITALS: BMI 20.2
[2024-01-27 16:40] LABS: NT-proBNP (BNP-Adult 18+) 1290 pg/mL (<450)
== END ==
PROVIDERS: PCP Family Medicine; Referring Provider Internal Medicine Cardiovascular Disease; Visit Provider Internal Medicine Cardiovascular Disease
DX: J90 Pleural effusion, not elsewhere classified (principal); R06.09 Other forms of dyspnea
CPT/HCPCS: 36415; 83880

== ENCOUNTER 2024-02-24 12:54 | Emergency (ER) | payer MEDICARE, OTHER, SELFPAY ==
[2024-02-23 08:37] VITALS: BMI 20.2
[2024-02-24 13:04] VITALS: BP 124/75; PULSE 85; RESP 14; TEMP 36.6; O2SAT 95; BMI 20.3
--- NOTE | 2024-02-24 13:13 | PC.NURSE ---
Ring removed with soap and water
--- NOTE | 2024-02-24 13:19 | DI.RAD.S_ITS ---
PROCEDURE: XR HAND RT MIN 3V INDICATIONS: hand injury TECHNIQUE: 3 views of the hand(s) acquired. COMPARISON: None. FINDINGS: Bones: No fractures or dislocations. Carpal bones are normally aligned. No suspicious bony lesions. 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 Subchondral sclerosis and periarticular osteophytes are present. Soft tissues: No suspicious soft tissue calcifications. IMPRESSION: Significant arthritic changes. Dictated by: Simran Wilson M.D. on 02/24/2024 at 14:17 Approved by: Simran Wilson M.D. on 02/24/2024 at 14:23
[2024-02-24 15:20] VITALS: BP 142/83; PULSE 76; RESP 18; O2SAT 97
--- NOTE | 2024-02-24 15:59 | ED.FALL ---
HPI - Fall General Chief Complaint: Fall Stated Complaint: fall, r hand injury/swelling Time Seen by Provider: 02/24/24 15:09 Source: patient Mode of arrival: Ambulatory History of Present Illness HPI Narrative: 88-year-old female with history of Eliquis use presents for evaluation after ground level fall. Patient states that she was walking outside yesterday when she tripped, injuring her right hand. Patient states that her right hand is very swollen and bruised. Overall not very tender. Is wearing a ring on her right ring finger that seems caught. Related Data Home Medications Medication Instructions Recorded Confirmed multivitamin (Multiple Vitamins 1 tab PO QDAY ##0 08/17/17 02/24/24 tablet) melatonin 5 mg tablet 5 mg PO BEDTIME PRN Sleep 08/08/18 02/24/24 cholecalciferol (vitamin D3) 50 50 mcg PO DAILY 05/15/21 02/24/24 mcg (2,000 unit) capsule ascorbic acid (vitamin C) 500 mg 500 mg PO DAILY 05/21/21 02/24/24 tablet (Vitamin C) zinc 50 mg capsule 50 mg PO DAILY 05/21/21 02/24/24 gabapentin 300 mg capsule 600 mg PO BEDTIME 11/28/23 02/24/24 sennosides 8.6 mg capsule (senna) 8.6 mg PO DAILY 12/05/23 02/24/24 Previous Rx's Medication Instructions Recorded apixaban 5 mg tablet (Eliquis) 5 mg PO BID #180 tabs 09/28/21 metoprolol succinate 50 mg 50 mg PO BID #180 tabs 09/28/21 tablet,extended release 24 hr polyethylene glycol 3350 17 gram 17 gm PO BID #565 ea 11/29/23 oral powder packet furosemide 40 mg tablet (Lasix) 40 mg PO DAILY #30 tabs 02/06/24 potassium chloride 20 mEq 20 meq PO DAILY #30 tabs 02/06/24 tablet,extended release Allergies Allergy/AdvReac Type Severity Reaction Status Date / Time tramadol Allergy Intermediate Confusion Verified 02/24/24 16:45 codeine Allergy Mild BODY ITCH Verified 02/24/24 16:45 Patient History Medical History CTS (carpal tunnel syndrome) A-fib Facet arthropathy, lumbar Scoliosis Breast cancer in female Surgical History (Reviewed 03/02/24 @ 02: by Whitney Riley MD) Status post laminectomy Family History (Reviewed 03/02/24 @ 02: by Whitney Riley MD) Father Hypertension Mother Congestive heart failure Social History (Reviewed 03/02/24 @ 02: by Whitney Riley MD) marital status: household members: none Smoking Status: Former smoker alcohol intake: current substance use type: does not use Smoking Status: Former smoker alcohol intake frequency: a few times a week Alcohol type: wine Substance Use Type: does not use Exam Initial Vital Signs Initial Vital Signs: Vital Signs Temperature 97.9 F 02/24/24 13:04 Pulse Rate 85 02/24/24 13:04 Respiratory Rate 14 02/24/24 13:04 Blood Pressure 124/75 02/24/24 13:04 Pulse Oximetry 95 02/24/24 13:04 Oxygen Delivery Method Room Air 02/24/24 13:04 Const: Awake, alert, no acute distress, nontoxic appearing MSK: significant swelling dorsum R hand, no obvious deformity, full ROM of wrist and fingers Skin: Warm, Dry, intact, contusion R hand Neuro: AO x3, CN II-XII grossly intact, moves all extremities Course Orders Ordered: ED Orders 02/24/24 13:19 XR hand RT min 3V Stat Vital Signs Vital signs: Vital Signs - 8 hr 02/24/24 13:04 02/24/24 15:20 Temperature 97.9 F Pulse Rate 85 76 Respiratory Rate 14 18 Blood Pressure 124/75 142/83 H Pulse Oximetry 95 97 Oxygen Delivery Method Room Air Room Air MDM - Fall Differential Diagnosis Differential diagnosis: Likely fracture of wrist and other (hand fracture, finger sprain) Imaging Data Extremity x-ray #1: Radiologist's Impression: PROCEDURE: XR HAND RT MIN 3V INDICATIONS: hand injury TECHNIQUE: 3 views of the hand(s) acquired. COMPARISON: None. FINDINGS: Bones: No fractures or dislocations. Carpal bones are normally aligned. No suspicious bony lesions. 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 Subchondral sclerosis and periarticular osteophytes are present. Soft tissues: No suspicious soft tissue calcifications. IMPRESSION: Significant arthritic changes. Dictated by: Simran Wilson M.D. on 02/24/2024 at 14:17 Approved by: Simran Wilson M.D. on 02/24/2024 at 14:23 [facility] Narrative Medical decision making narrative: Ground level fall with right hand injury. Extensive swelling noted over dorsum of hand, however she is neurologically and vascularly intact. Ring removed by nursing staff. X-rays negative for acute traumatic findings. Patient counseled to use ice and elevate wrist to prevent swelling Discharge Plan Departure Patient Disposition: Home Clinical Impression: Contusion of hand Instructions: DI for Contusion Activity Restrictions/Additional Instructions: Your x-ray imaging today was normal. Elevate your hand to decrease swelling. Tylenol can be taken as needed for pain. Prescriptions: No Action multivitamin [Multiple Vitamins] 1 EACH tablet 1 tab PO QDAY Qty: 0 Eliquis 5 mg tablet 5 mg PO BID Qty: 180 3RF metoprolol succinate 50 mg tablet extended release 24 hr 50 mg PO BID Qty: 180 3RF furosemide [Lasix] 40 mg tablet 40 mg PO DAILY Qty: 30 0RF potassium chloride 20 mEq tablet extended release 20 meq PO DAILY Qty: 30 0RF melatonin 5 mg Tablet 5 mg PO BEDTIME PRN (Reason: Sleep) ascorbic acid (vitamin C) [Vitamin C] 500 mg Tablet 500 mg PO DAILY zinc 50 mg Capsule 50 mg PO DAILY gabapentin 300 mg capsule 600 mg PO BEDTIME polyethylene glycol 3350 17 gram Powder In Packet 17 gm PO BID Qty: 565 1RF cholecalciferol (vitamin D3) 50 mcg (2,000 unit) capsule 50 mcg PO DAILY senna 8.6 mg capsule 8.6 mg PO DAILY Referrals: Jude Choe MD [Primary Care Provider] - Stand Alone Forms: Patient Portal/API
[2024-02-24 16:04] VITALS: BP 137/85; PULSE 76; RESP 20; O2SAT 99
== END 2024-02-24 16:05 | disposition home or self-care (01) ==
PROVIDERS: Emergency Provider Emergency Medicine; PCP Family Medicine
DX: S60.221A Contusion of right hand, initial encounter (principal); J90 Pleural effusion, not elsewhere classified; W01.0XXA Fall on same level from slipping, tripping and stumbling without subsequent striking against object, initial encounter
CPT/HCPCS: 32555; 73130; 99214; 99283

== ENCOUNTER → 2024-04-20 08:48 | Outpatient (CLI) | payer MEDICARE, OTHER, SELFPAY ==
[2024-02-23 08:37] VITALS: BMI 20.2
--- NOTE | 2024-04-20 | PATH_ITS ---
Note [facility] Accession Number: [id number] TESTS RESULT FLAG UNITS REF RANGE LAB Clinician Provided Cytology Information No. of containers..01 Other (Miscellaneous) Source: RIGHT PLEURAL EFFUSION DIAGNOSIS: RIGHT PLEURAL EFFUSION, THORACENTESIS. NEGATIVE FOR MALIGNANT CELLS. REACTIVE MESOTHELIAL CELLS ARE PRESENT. THIS INTERPRETATION INCLUDES EVALUATION OF A CELL BLOCK. Pathologist ICD10: 01 J91.8 Signed out by: Elvis Dupont MD, Pathologist NPI- [id number] Performed by: Balbir Arriaga, Waterproofing Machine Operator ([facility]) Gross description: 60 CC, YELLOW, CLEAR RECEIVED: FRESH IN BLUE CAP CONTAINER.VO /VDU 04/23/2024 1142 Local FLAG LEGEND: L-Low Normal,H-High Normal,LL-Alert Low,HH-Alert High <-Panic Low,>-Panic High,A-Abnormal,AA-Critical Abnormal Performed at: 01 =Z [employer] [address] [facility], [place] [address] Darian Alonso MD, Performed at: 01 [facility] [address] [address], [place], [place] [id number] MD Darian Alonso MD Phone: [phone]
[2024-04-20 09:20] LABS: Hematocrit 43.3 % (36-46); Hemoglobin 14.8 g/dL (12.0-16.0); Mean Corpuscular HGB Conc 34.3 % (30-36); Mean Corpuscular Hemoglobin 34.1 PG (26-34); Mean Corpuscular Volume 99.5 fL (80-100); Platelet Count 298 X10^3/uL (150-400); Red Blood Cell Count 4.35 X10^6/uL (4.0-5.2); Red Cell Distribution Width 12.9 % (11.6-14.8); White Blood Cell Count 5.2 X10^3/uL (4.5-11.0)
[2024-04-20 09:46] LABS: Total Protein 7.3 g/dL (6.3-8.2)
[2024-04-20 09:50] LABS: BUN Creatinine Ratio 21.3 (6-22); Blood Urea Nitrogen 13 mg/dL (7-17); Calcium 9.6 mg/dL (8.4-10.2); Carbon Dioxide 33 mmol/L (22-32); Chloride 92 mmol/L (98-107); Estimated Glomerular Filt Rate > 60 mL/min (>60); Glucose 92 mg/dL (80-110); HEMOLYSIS < 15 (0-50); Potassium 4.7 mmol/L (3.4-5.1); Sodium 129 mmol/L (137-145)
[2024-04-20 09:59] LABS: NT-proBNP (BNP-Adult 18+) 1110 pg/mL (<450)
== END ==
PROVIDERS: Student in an Organized Health Care Education/Training Program; PCP Family Medicine; Referring Provider Internal Medicine Cardiovascular Disease; Visit Provider Internal Medicine Cardiovascular Disease
DX: J90 Pleural effusion, not elsewhere classified (principal); I48.19 Other persistent atrial fibrillation
CPT/HCPCS: 36415; 80048; 83880; 84155; 85027

== ENCOUNTER 2024-04-20 08:51 | Outpatient (CLI) | payer MEDICARE, OTHER, SELFPAY ==
[2024-02-23 08:37] VITALS: BMI 20.2
--- NOTE | 2024-04-20 | DI.RAD.S_ITS ---
PROCEDURE: XR CHEST 1V INDICATIONS: POST THORACENTESIS TECHNIQUE: One view of the chest was acquired. COMPARISON: [facility], CR, XR CHEST 2V, 01/26/2024, 11:48. [facility], CR, XR CHEST 2V, 01/16/2024, 12:01. FINDINGS: Surgical changes and devices: None. Lungs and pleura: Small right pleural effusion adjacent consolidative lung changes are present. No pneumothorax seen. Left lung is hyperexpanded. Mediastinum: Cardiac silhouette is normal in size. Bones and chest wall: Mild scoliosis. unremarkable. IMPRESSION: No pneumothorax seen, status post right thoracentesis Dictated by: Mil Reno M.D. on 04/20/2024 at 14:38 Approved by: Mil Reno M.D. on 04/20/2024 at 14:59
--- NOTE | 2024-04-20 08:53 | DI.US.S_ITS ---
PROCEDURE: US THORACENTESIS INDICATIONS: RIGHT PLEURAL EFFUSION TECHNIQUE: The indications, alternatives, benefits, risks, and complications of the procedure were explained to the patient. Written informed consent was obtained and placed in the chart. The chest was examined sonographically, and an appropriate site was chosen for thoracentesis. The skin was prepared and draped in the usual sterile fashion, and 1% lidocaine was infiltrated from the skin down through the pleural surface. A 19-gauge catheter-covered needle was then introduced into the pleural space, the catheter was advanced and the needle was withdrawn, and thereafter pleural fluid was aspirated. The catheter was then removed and a dressing was applied. COMPARISON: [facility], THORACENTESIS, 01/24/2024, 14:36. FINDINGS: Access site: Right hemithorax. Needle: One-Step centesis catheter with introducer needle. Fluid volume and description: Clear yellow fluid, 1400 cc removed Fluid sent for diagnostic testing: As requested by ordering team Medications: 1% lidocaine for local anaesthesia. Complications: None; post-procedural chest radiograph is pending to assess for pneumothorax. IMPRESSION: Successful ultrasound-guided thoracentesis. Dictated by: Mil Reno M.D. on 04/20/2024 at 16:02 Approved by: Mil Reno M.D. on 04/20/2024 at 16:04
[2024-04-20 12:12] LABS: Platelet Count 291 X10^3/uL (150-400)
[2024-04-20 12:15] LABS: INR 1.1 (0.9-1.3); Prothrombin Time 12.1 SECONDS (9.4-12.5)
[2024-04-20 12:18] LABS: PTT Partial Thromboplastin Tim 33 SECONDS (25.1-36.5)
[2024-04-20 13:35] VITALS: BP 127/90; PULSE 93; RESP 18; TEMP 36.9; O2SAT 94
[2024-04-20 14:24] VITALS: BP 123/63; PULSE 88; RESP 18; O2SAT 92
[2024-04-20 14:30] VITALS: PULSE 86; RESP 18; O2SAT 92
[2024-04-20 14:35] VITALS: PULSE 85; RESP 18; O2SAT 92
[2024-04-20 14:40] VITALS: BP 120/77; PULSE 87; RESP 16; O2SAT 95
[2024-04-20 15:09] LABS: Body Fluid Tot Nucleated Cells 585 /uL
[2024-04-20 15:20] LABS: Body Fluid Red Blood Cells 225 /uL
[2024-04-20 15:21] LABS: Basophils Body Fluid 0 %; Body Fluid Appearance CLEAR; Body Fluid Clotted? NO CLOTS PRESENT; Body Fluid Color YELLOW; Eosinophils Body Fluid 3 %; Lymphocytes Body Fluid 83 %; MESO/MACRO/MONO Body Fluid 12 %; Neutrophils Body Fluid 2 %
[2024-04-21 07:09] LABS: Labcorp LDH, Body Fluid 116 IU/L (.)
== END 2024-04-20 14:46 | disposition home or self-care (01) ==
PROVIDERS: PCP Family Medicine; Referring Provider Student in an Organized Health Care Education/Training Program; Visit Provider Student in an Organized Health Care Education/Training Program
DX: J90 Pleural effusion, not elsewhere classified (principal); I48.19 Other persistent atrial fibrillation
CPT/HCPCS: 32555; 36415; 71045; 80048; 83615; 83880; 84155; 85027; 85049; 85610; 85730; 89051

== ENCOUNTER → 2024-05-18 15:20 | Outpatient (CLI) | payer MEDICARE, OTHER, SELFPAY ==
[2024-02-23 08:37] VITALS: BMI 20.2
[2024-05-18 17:16] LABS: Hemoglobin 14.6 g/dL (12.0-16.0); Mean Corpuscular HGB Conc 34.1 % (30-36); Mean Corpuscular Hemoglobin 34.3 PG (26-34); Mean Corpuscular Volume 100.6 fL (80-100); Platelet Count 268 X10^3/uL (150-400); Red Blood Cell Count 4.27 X10^6/uL (4.0-5.2); White Blood Cell Count 7.5 X10^3/uL (4.5-11.0)
[2024-05-18 17:51] LABS: BUN Creatinine Ratio 41.8 (6-22); Blood Urea Nitrogen 23 mg/dL (7-17); Calcium 9.4 mg/dL (8.4-10.2); Carbon Dioxide 31 mmol/L (22-32); Chloride 94 mmol/L (98-107); Estimated Glomerular Filt Rate > 60 mL/min (>60); Glucose 90 mg/dL (80-110); HEMOLYSIS < 15 (0-50); Potassium 3.9 mmol/L (3.4-5.1); Sodium 132 mmol/L (137-145)
== END ==
PROVIDERS: PCP Family Medicine; Referring Provider Internal Medicine Cardiovascular Disease; Visit Provider Internal Medicine Cardiovascular Disease
DX: I50.32 Chronic diastolic (congestive) heart failure (principal); R06.09 Other forms of dyspnea
CPT/HCPCS: 36415; 80048; 85027

== ENCOUNTER → 2024-05-28 11:18 | Outpatient (CLI) | payer MEDICARE, OTHER, SELFPAY ==
[2024-02-23 08:37] VITALS: BMI 20.2
[2024-05-28 13:25] LABS: NT-proBNP (BNP-Adult 18+) 1890 pg/mL (<450)
== END ==
PROVIDERS: PCP Family Medicine; Referring Provider Internal Medicine Cardiovascular Disease; Visit Provider Internal Medicine Cardiovascular Disease
DX: I50.32 Chronic diastolic (congestive) heart failure (principal)
CPT/HCPCS: 36415; 83880

== ENCOUNTER → 2024-05-30 13:44 | Outpatient (CLI) | payer MEDICARE, OTHER, SELFPAY ==
[2024-02-23 08:37] VITALS: BMI 20.2
[2024-05-30 14:56] LABS: Hematocrit 44.3 % (36-46); Hemoglobin 15.3 g/dL (12.0-16.0); Mean Corpuscular HGB Conc 34.5 % (30-36); Mean Corpuscular Hemoglobin 34.6 PG (26-34); Mean Corpuscular Volume 100.2 fL (80-100); Platelet Count 334 X10^3/uL (150-400); Red Blood Cell Count 4.42 X10^6/uL (4.0-5.2); Red Cell Distribution Width 13.1 % (11.6-14.8); White Blood Cell Count 7.8 X10^3/uL (4.5-11.0)
[2024-05-30 15:07] LABS: INR 1.1 (0.9-1.3)
== END ==
PROVIDERS: PCP Family Medicine; Referring Provider Internal Medicine; Visit Provider Internal Medicine
DX: J90 Pleural effusion, not elsewhere classified (principal); I50.30 Unspecified diastolic (congestive) heart failure
CPT/HCPCS: 36415; 85027; 85610

== ENCOUNTER → 2024-06-04 08:44 | Outpatient (CLI) | payer MEDICARE, OTHER, SELFPAY ==
[2024-02-23 08:37] VITALS: BMI 20.2
--- NOTE | 2024-06-04 08:46 | DI.US.S_ITS ---
PROCEDURE: US THORACENTESIS INDICATIONS: Pleural effusion TECHNIQUE: The indications, alternatives, benefits, risks, and complications of the procedure were explained to the patient. Written informed consent was obtained and placed in the chart. The chest was examined sonographically, and an appropriate site was chosen for thoracentesis. The skin was prepared and draped in the usual sterile fashion, and 1% lidocaine was infiltrated from the skin down through the pleural surface. A 19-gauge catheter-covered needle was then introduced into the pleural space, the catheter was advanced and the needle was withdrawn, and thereafter pleural fluid was aspirated. The catheter was then removed and a dressing was applied. COMPARISON: [facility], THORACENTESIS, 04/20/2024, 13:26. FINDINGS: Access site: Right hemithorax. Needle: One-Step centesis catheter with introducer needle. Fluid volume and description: 1160 Fluid sent for diagnostic testing: Body fluid cytology Medications: 1% lidocaine for local anaesthesia. Complications: None. No pneumothorax on postprocedural x-ray. No left pleural effusion seen. IMPRESSION: Successful ultrasound-guided diagnostic and therapeutic right-sided thoracentesis. Dictated by: Luis Miguel Guillen M.D. on 06/04/2024 at 11:44 Approved by: Luis Miguel Guillen M.D. on 06/04/2024 at 11:46
--- NOTE | 2024-06-04 09:47 | DI.RAD.S_ITS ---
PROCEDURE: XR CHEST 1V INDICATIONS: POST THORACENTESIS - ROOM 3 TECHNIQUE: One view of the chest was acquired. COMPARISON: [facility], CR, XR CHEST 1V, 04/20/2024, 14:29. FINDINGS: Surgical changes and devices: Clips projecting over the right breast. Lungs and pleura: No pneumothorax post right-sided thoracentesis. Small right pleural effusion. No left pleural effusion. Mild opacity at the right lung base which has the appearance of atelectasis. Mediastinum: Mediastinal contours appear unchanged. Heart size is within normal limits. Bones and chest wall: No suspicious bony lesions. Mild scoliosis. Overlying soft tissues appear unremarkable. IMPRESSION: No pneumothorax post right-sided thoracentesis. Small right pleural effusion. Dictated by: Luis Miguel Guillen M.D. on 06/04/2024 at 10:01 Approved by: Luis Miguel Guillen M.D. on 06/04/2024 at 10:03
--- NOTE | 2024-06-04 09:55 | PATH_ITS ---
Note [facility] Accession Number: [id number] TESTS RESULT FLAG UNITS REF RANGE LAB Clinician Provided Cytology Information No. of containers..01 Other (Miscellaneous) Source: PLEURAL FLUID DIAGNOSIS: PLEURAL FLUID, THORACENTESIS. NEGATIVE FOR MALIGNANT CELLS. FEW MESOTHELIAL CELLS AND BACKGROUND SMALL, MATURE LYMPHOCYTES. THIS INTERPRETATION INCLUDES EVALUATION OF A CELL BLOCK. Pathologist ICD10: J90 Signed out by: Elvis Dupont MD, Pathologist NPI- [id number] Performed by: Jose Noguera, Agricultural And Forestry Supervisor ([facility]) Gross description: 01 10 CC, YELLOW, CLEAR RECEIVED: FRESH IN 10 ML SYRINGE.VO /VDU 06/05/2024 0556 Local FLAG LEGEND: L-Low Normal,H-High Normal,LL-Alert Low,HH-Alert High <-Panic Low,>-Panic High,A-Abnormal,AA-Critical Abnormal Performed at: 01 =Z [facility] [address] [place] [address] [facility], [place] [address] Darian Alonso MD, Performed at: 01 [facility] [address] [address], [place], [place] [id number] MD Darian Alonso MD Phone: [phone]
== END ==
PROVIDERS: PCP Family Medicine; Referring Provider Internal Medicine; Visit Provider Internal Medicine
DX: J90 Pleural effusion, not elsewhere classified (principal)
CPT/HCPCS: 32555; 71045

== ENCOUNTER → 2024-07-18 10:21 | Outpatient (CLI) | payer MEDICARE, OTHER, SELFPAY ==
[2024-02-23 08:37] VITALS: BMI 20.2
[2024-07-18 11:51] LABS: Body Fluid Red Blood Cells 28712 /uL; Body Fluid Tot Nucleated Cells 1633 /uL
[2024-07-18 12:06] LABS: Body Fluid Appearance CLOUDY; Body Fluid Clotted? NO CLOTS PRESENT; Body Fluid Color RED
[2024-07-18 12:53] LABS: Lymphocytes Body Fluid 95 %; Neutrophils Body Fluid 5 %
[2024-07-19 05:13] LABS: Labcorp Albumin, Body Fluid 2.7 g/dL (Not Estab.)
[2024-07-19 12:14] LABS: Labcorp Glucose, Body Fluid 81 mg/dL (.); Labcorp LDH, Body Fluid 183 IU/L (.); Labcorp Total Prot, Body Fluid 4.4 g/dL (.)
== END ==
PROVIDERS: Student in an Organized Health Care Education/Training Program; PCP Family Medicine; Visit Provider Internal Medicine
DX: J90 Pleural effusion, not elsewhere classified (principal)
CPT/HCPCS: 82040; 82945; 83615; 84157; 89051

== ENCOUNTER → 2024-07-30 13:21 | Outpatient (CLI) | payer MEDICARE, OTHER, SELFPAY ==
[2024-07-18 10:29] VITALS: BMI 20.2
[2024-07-30 14:08] LABS: HEMOLYSIS < 15 (0-50)
[2024-07-30 14:12] LABS: Alanine Aminotransferase 16 IU/L (<35); Albumin 4.1 g/dL (3.5-5.0); Albumin Globulin Ratio 1.2 (1.0-2.8); Alkaline Phosphatase 92 U/L (38-126); Aspartate Aminotransferase 28 IU/L (14-36); Bilirubin Total 0.7 mg/dL (0.2-1.3); Blood Urea Nitrogen 17 mg/dL (7-17); Calcium 9.4 mg/dL (8.4-10.2); Carbon Dioxide 31 mmol/L (22-32); Chloride 96 mmol/L (98-107); Estimated Glomerular Filt Rate > 60 mL/min (>60); Globulin 3.4 g/dL (1.7-4.1); Glucose 93 mg/dL (80-110); Potassium 4.3 mmol/L (3.4-5.1); Sodium 135 mmol/L (137-145); Total Protein 7.5 g/dL (6.3-8.2)
[2024-07-30 14:23] LABS: NT-proBNP (BNP-Adult 18+) 2080 pg/mL (<450)
== END ==
PROVIDERS: PCP Family Medicine; Referring Provider Internal Medicine Cardiovascular Disease; Visit Provider Internal Medicine Cardiovascular Disease
DX: I50.32 Chronic diastolic (congestive) heart failure (principal)
CPT/HCPCS: 36415; 80053; 83880

== ENCOUNTER 2024-08-06 10:30 | Outpatient (CLI) | payer MEDICARE, OTHER, SELFPAY ==
[2024-07-18 10:29] VITALS: BMI 20.2
--- NOTE | 2024-08-06 10:34 | DI.US.S_ITS ---
PROCEDURE: US CHEST COMPARISON: None. INDICATIONS: therapeutic right thoracentesis; pls hold apixaban FINDINGS/IMPRESSION: Targeted ultrasound of the right hemithorax demonstrates a small pleural effusion with loculation. Decision was made to not undergo thoracentesis, and follow-up within 2 weeks or sooner if necessary. Dictated by: Malvin Oshea M.D. on 08/06/2024 at 14:58 Approved by: Malvin Oshea M.D. on 08/06/2024 at 14:59
[2024-08-06 10:44] VITALS: RESP 17
== END 2024-08-06 11:10 | disposition home or self-care (01) ==
LOC: US 10:33
PROVIDERS: PCP Family Medicine; Referring Provider Radiology Diagnostic Radiology; Visit Provider Radiology Diagnostic Radiology
DX: J90 Pleural effusion, not elsewhere classified (principal)
CPT/HCPCS: 76604

== ENCOUNTER → 2024-09-10 11:55 | Outpatient (CLI) | payer MEDICARE, OTHER, SELFPAY ==
[2024-07-18 10:29] VITALS: BMI 20.2
[2024-09-10 14:00] LABS: BUN Creatinine Ratio 32.3 (6-22); Blood Urea Nitrogen 20 mg/dL (7-17); Calcium 9.6 mg/dL (8.4-10.2); Carbon Dioxide 29 mmol/L (22-32); Chloride 89 mmol/L (98-107); Estimated Glomerular Filt Rate > 60 mL/min (>60); Glucose 94 mg/dL (80-110); HEMOLYSIS < 15 (0-50); Potassium 4.6 mmol/L (3.4-5.1); Sodium 129 mmol/L (137-145)
[2024-09-10 14:07] LABS: NT-proBNP (BNP-Adult 18+) 2150 pg/mL (<450)
== END ==
PROVIDERS: PCP Family Medicine; Referring Provider Internal Medicine Cardiovascular Disease; Visit Provider Internal Medicine Cardiovascular Disease
DX: I50.32 Chronic diastolic (congestive) heart failure (principal)
CPT/HCPCS: 36415; 80048; 83880

== ENCOUNTER → 2024-10-30 07:01 | Outpatient (CLI) | payer MEDICARE, OTHER, SELFPAY ==
[2024-09-20 14:07] VITALS: BMI 20.2
--- NOTE | 2024-10-30 07:03 | DI.US.S_ITS ---
PROCEDURE: US ABDOMEN COMPLETE INDICATIONS: UPPER ABDOMINAL PAIN; EARLY SATIETY; DIARRHEA; WEIGHT LOSS TECHNIQUE: Real-time scanning was performed of the abdominal and retroperitoneal organs, with image documentation. COMPARISON: [facility], US, US ABDOMEN COMPLETE, 03/24/2020, 8:14. FINDINGS: Liver: Liver is normal in size and homogeneous in echotexture. Left lobe 1.4 cm cyst again seen. Gallbladder: Unremarkable Biliary ducts: Intrahepatic bile ducts are non-dilated. Extrahepatic bile duct caliber measures 3 mm. Normal is 6-7 mm or less in diameter, or 10 mm or less post-cholecystectomy. Pancreas: Visualized portions of the pancreas are sonographically normal. Spleen: Spleen is normal in size and homogeneous in echotexture. Kidneys: Kidneys are normal in size and echotexture. Right kidney measures 10 cm long; left kidney measures 11 cm long. No definite solid mass. Right ureter is mildly dilated at 6 mm. Aorta: Visualized aorta is normal in caliber at less than 3 cm. Iliacs: Proximal common iliac arteries are normal in caliber at less than 2.5 cm. IVC: Intrahepatic inferior vena cava is patent. Miscellaneous: Ureteral jets were not seen at the time of exam in the urinary bladder. IMPRESSION: Mild ureter dilation on the right. Consider CT IVP to further evaluate depending on clinical context. Ureteral jets were not seen at the time of exam within the urinary bladder. Dictated by: Mike Wade M.D. on 10/30/2024 at 12:57 Approved by: Mike Wade M.D. on 10/30/2024 at 13:00
[2024-10-30 09:03] LABS: Add Manual Diff / Slide Review NO; Basophils Absolute Auto 0 /uL (0-100); Basophils Percent Auto 0.6 % (0-2); Eosinophils Absolute Auto 100 /uL (0-450); Hemoglobin 13.4 g/dL (12.0-16.0); Lymphocytes Absolute Auto 500 /uL (1100-4500); Mean Corpuscular HGB Conc 34.3 % (30-36); Mean Corpuscular Hemoglobin 33.4 PG (26-34); Mean Corpuscular Volume 97.5 fL (80-100); Monocytes Absolute Auto 500 /uL (0-900); Monocytes Percent Auto 9.3 % (3-14); Neutrophils Absolute Auto 4200 /uL (1500-7000); Neutrophils Percent Auto 79.1 % (50-75); Platelet Count 283 X10^3/uL (150-400); White Blood Cell Count 5.3 X10^3/uL (4.5-11.0)
[2024-10-30 09:29] LABS: BUN Creatinine Ratio 36.4 (6-22); Blood Urea Nitrogen 24 mg/dL (7-17); Calcium 9.6 mg/dL (8.4-10.2); Carbon Dioxide 29 mmol/L (22-32); Chloride 97 mmol/L (98-107); Estimated Glomerular Filt Rate > 60 mL/min (>60); Glucose 95 mg/dL (80-110); HEMOLYSIS < 15 (0-50); Potassium 4.8 mmol/L (3.4-5.1); Sodium 136 mmol/L (137-145)
[2024-10-30 10:11] LABS: Vitamin B12 658 pg/mL (239-931)
== END ==
PROVIDERS: PCP Family Medicine; Referring Provider Physician Assistant; Visit Provider Physician Assistant
DX: N28.82 Megaloureter (principal); K76.89 Other specified diseases of liver; R10.10 Upper abdominal pain, unspecified; R68.81 Early satiety; R63.4 Abnormal weight loss; R19.7 Diarrhea, unspecified
CPT/HCPCS: 36415; 76700; 80048; 82607; 84443; 85025; 87045; 87493

== ENCOUNTER → 2024-11-19 11:40 | Outpatient (CLI) | payer MEDICARE, OTHER, SELFPAY ==
[2024-09-20 14:07] VITALS: BMI 20.2
[2024-11-19 12:35] LABS: Hematocrit 39.8 % (36-46); Hemoglobin 13.3 g/dL (12.0-16.0); Mean Corpuscular HGB Conc 33.5 % (30-36); Mean Corpuscular Volume 98.5 fL (80-100); Platelet Count 240 X10^3/uL (150-400); Red Blood Cell Count 4.04 X10^6/uL (4.0-5.2); Red Cell Distribution Width 13.4 % (11.6-14.8); White Blood Cell Count 5.9 X10^3/uL (4.5-11.0)
[2024-11-19 12:37] LABS: BUN Creatinine Ratio 32.3 (6-22); Blood Urea Nitrogen 20 mg/dL (7-17); Calcium 9.4 mg/dL (8.4-10.2); Carbon Dioxide 28 mmol/L (22-32); Chloride 93 mmol/L (98-107); Estimated Glomerular Filt Rate > 60 mL/min (>60); Glucose 119 mg/dL (80-110); HEMOLYSIS 39 (0-50); Potassium 4.5 mmol/L (3.4-5.1); Sodium 132 mmol/L (137-145)
[2024-11-19 12:45] LABS: NT-proBNP (BNP-Adult 18+) 1770 pg/mL (<450)
== END ==
PROVIDERS: PCP Family Medicine; Referring Provider Internal Medicine Cardiovascular Disease; Visit Provider Internal Medicine Cardiovascular Disease
DX: I50.32 Chronic diastolic (congestive) heart failure (principal); R06.09 Other forms of dyspnea
CPT/HCPCS: 36415; 80048; 83880; 85027

== ENCOUNTER → 2024-11-26 15:13 | Outpatient (CLI) | payer MEDICARE, OTHER, SELFPAY ==
[2024-09-20 14:07] VITALS: BMI 20.2
--- NOTE | 2024-11-26 15:14 | DI.RAD.S_ITS ---
PROCEDURE: XR ABDOMEN 1V INDICATIONS: abd pain ruq TECHNIQUE: One view of the abdomen acquired. COMPARISON: None. FINDINGS: Surgical changes and devices: None. Chest: Irregular lobulated density within the right lung base in addition to suspected pleural effusion. The left lung base is clear. Bowel: Bowel gas pattern is normal. Soft tissues: No suspicious abdominal calcifications. Visualized solid organ contours appear normal in size. Bones: No suspicious bony lesions. Degenerative changes within the lower lumbar spine and bilateral hips. IMPRESSION: Lobulated density within the right lung base and pleural effusion. Nonobstructive bowel gas pattern. Dictated by: Tomer Joaquin M.D. on 11/27/2024 at 2:27 Approved by: Tomer Joaquin M.D. on 11/27/2024 at 2:29
== END ==
PROVIDERS: PCP Family Medicine; Referring Provider Family Medicine; Visit Provider Family Medicine
DX: J90 Pleural effusion, not elsewhere classified (principal); R10.10 Upper abdominal pain, unspecified
CPT/HCPCS: 74018

== ENCOUNTER → 2024-11-28 13:17 | Outpatient (CLI) | payer MEDICARE, OTHER, SELFPAY ==
[2024-09-20 14:07] VITALS: BMI 20.2
--- NOTE | 2024-11-28 13:18 | DI.MG.S_ITS ---
MM screening mammo BI: 11/28/2024. BI-RADS: 2 CLINICAL: 89-year old female for bilateral screening mammogram. No Tyrer-Cuzick risk score calculation due to the patient's personal history of breast cancer. Patient reports a history of right breast carcinoma diagnosed at age 77. Status-post right lumpectomy with radiation therapy and chemotherapy. No first-degree family history of breast cancer. PRIOR EXAMS 12/15/2023, 11/18/2023, 10/12/2022, 10/06/2021, 04/08/2021. MAMMOGRAPHY TECHNIQUE: 2D and 3D (tomosynthesis) digital mammographic views obtained, with additional images as needed for full coverage. Current study was also evaluated with a Computer Aided Detection (CAD) system. DENSITY B. There are scattered areas of fibroglandular density. MAMMOGRAPHY FINDINGS Right: Benign-appearing post-surgical changes noted on the right. There are no suspicious masses, calcifications, or other findings in the breast. Left: There are no suspicious masses, calcifications, or other findings in the breast. IMPRESSION: * No evidence of malignancy with benign findings. RECOMMENDATIONS Bilateral * Annual screening mammography. OVERALL ASSESSMENT CATEGORY BI-RADS-2: Benign. The [employer] recommends annual screening mammography beginning at age 40 for women with average risk of breast cancer. ELECTRONICALLY SIGNED: Bk Ewing M.D. on 11/28/2024 at 02:40:27 PM PT Interpreting Station ID: [id number]
== END ==
PROVIDERS: PCP Family Medicine; Referring Provider Family Medicine; Visit Provider Family Medicine
DX: Z12.31 Encounter for screening mammogram for malignant neoplasm of breast (principal); Z85.3 Personal history of malignant neoplasm of breast
CPT/HCPCS: 77063; 77067

== ENCOUNTER → 2024-11-29 11:57 | Outpatient (CLI) | payer MEDICARE, OTHER, SELFPAY ==
[2024-09-20 14:07] VITALS: BMI 20.2
--- NOTE | 2024-11-29 11:58 | DI.CT.S_ITS ---
PROCEDURE: CT CHEST ABD PEL W CON INDICATIONS: abd pain mass in rt lung TECHNIQUE: After the administration of intravenous contrast, 5 mm thick sections acquired from the lung apices to the symphysis. 5 mm coronal and sagittal reformats were performed, with additional 7 mm MIP reformats through the lungs. For radiation dose reduction, the following was used: automated exposure control, adjustment of mA and/or kV according to patient size. COMPARISON: [facility], CT, CT CHEST WO CON, 06/18/2021, 10:25. [facility], CT, CT ABDOMEN PELVIS W CON, 11/27/2023, 15:10. [facility], US, US ABDOMEN COMPLETE, 10/30/2024, 7:29. FINDINGS: Image quality: Diagnostic Lungs and pleura: There is a [id number] right pleural effusion with pleural thickening which is increased. Scattered scarring and atelectasis. Masslike consolidations are seen in the right lung, in the right lower lobe measuring up to 6.3 x 4.3 cm. Right middle lobe region measures 2.2 x 1.6 cm. Pleural chest wall thickening is more conspicuous in the right anterior lung adjacent to the breast surgical clips (image 3/220). Mediastinum, heart, and esophagus: Patulous esophagus with oral contrast likely from dysmotility or reflux. No enlarged lymph nodes by size criteria. Mild cardiomegaly. Prominent pericardial folds containing fluid. Chest wall and thyroid: Right breast postsurgical changes Liver: Left lobe liver cyst again seen. Gallbladder and biliary system: Unremarkable, nondilated Pancreas: No ductal dilation Spleen: Granulomas are present Adrenals: No discrete nodules Kidneys: No solid mass or hydronephrosis Vessels and lymph nodes: Main portal vein appears patent. No abdominal aortic aneurysm. No enlarged lymph nodes by size criteria. Bowel and peritoneum: No small bowel obstruction. Moderate overall fecal loading. No drainable ascites. Moderate focal wall thickening and edema is seen in the mid ascending colon. Body wall: Unremarkable Pelvis: Bladder is unremarkable. Reproductive organs are unremarkable on limited CT evaluation Bones: No aggressive appearing osseous abnormality. L3 suspected hemangioma IMPRESSION: Increased right pleural thickening, particularly adjacent to the right breast surgical clips. Right pleural effusion, [id number]. New masslike consolidations in the right lung, measuring up to 6.3 cm in the right lower lobe. Consider PET-CT and/or sampling. The masslike consolidations could represent underlying malignant lesions and/or round atelectasis. Moderate overall colonic fecal loading. Moderate focal inflammation is seen in the mid ascending colon, possibly infectious/inflammatory. Attention on follow-up and consider colonoscopy correlation if clinically indicated Other findings above. Dictated by: Mike Wade M.D. on 11/30/2024 at 10:22 Approved by: Mike Wade M.D. on 11/30/2024 at 10:36
== END ==
PROVIDERS: PCP Family Medicine; Referring Provider Family Medicine; Visit Provider Family Medicine
DX: J90 Pleural effusion, not elsewhere classified (principal); R91.8 Other nonspecific abnormal finding of lung field; I51.7 Cardiomegaly; K76.89 Other specified diseases of liver
CPT/HCPCS: 71260; 74177; Q9967

== ENCOUNTER → 2025-02-12 11:04 | Outpatient (CLI) | payer MEDICARE, OTHER, SELFPAY ==
[2024-09-20 14:07] VITALS: BMI 20.2
[2025-02-12 12:32] LABS: Hematocrit 40.0 % (36-46); Hemoglobin 13.8 g/dL (12.0-16.0); Mean Corpuscular HGB Conc 34.5 % (30-36); Mean Corpuscular Hemoglobin 34.5 PG (26-34); Mean Corpuscular Volume 100.1 fL (80-100); Platelet Count 276 X10^3/uL (150-400)
[2025-02-12 12:52] LABS: Blood Urea Nitrogen 14 mg/dL (7-17); Calcium 9.4 mg/dL (8.4-10.2); Carbon Dioxide 26 mmol/L (22-32); Chloride 89 mmol/L (98-107); Estimated Glomerular Filt Rate > 60 mL/min (>60); Glucose 96 mg/dL (70-99); HEMOLYSIS 16 (0-50); Potassium 4.7 mmol/L (3.4-5.1); Sodium 127 mmol/L (137-145)
[2025-02-12 13:01] LABS: NT-proBNP (BNP-Adult 18+) 1830 pg/mL (<450)
== END ==
PROVIDERS: PCP Family Medicine; Referring Provider Internal Medicine Cardiovascular Disease; Visit Provider Internal Medicine Cardiovascular Disease
DX: I50.32 Chronic diastolic (congestive) heart failure (principal); Z79.01 Long term (current) use of anticoagulants
CPT/HCPCS: 36415; 80048; 83880; 85027

== ENCOUNTER → 2025-03-05 11:16 | Outpatient (CLI) | payer MEDICARE, OTHER, SELFPAY ==
[2024-09-20 14:07] VITALS: BMI 20.2
--- NOTE | 2025-03-05 11:18 | DI.CT.S_ITS ---
PROCEDURE: CT CHEST W CON INDICATIONS: follow-up right anterior lung mass (poss abscess) TECHNIQUE: After the administration of intravenous contrast, 5 mm thick sections acquired from the pulmonary apices to the posterior costophrenic angles. 1 mm axial lung, 5 mm thick coronal and sagittal reformats and 7 mm axial MIP were acquired. For radiation dose reduction, the following was used: automated exposure control, adjustment of mA and/or kV according to patient size. COMPARISON: [facility], CT, CT ABDOMEN PELVIS W CON, 11/27/2023, 15:10. [facility], CT, CT CHEST WO CON, 06/18/2021, 10:25. FINDINGS: Image quality: Diagnostic. Lower Neck: Enlarged left lower cervical chain lymph node, 09/10. Thyroid: Normal CT appearance. Axillae: No enlarged lymph nodes. Chest Wall: Peripherally calcified mass in the right breast with skin retraction and scarring along the chest wall small calcifications along the right chest wall scar tissue. Bones: No suspicious bone lesions. Lungs and Pleura: Thickened, mildly enhancing right pleural surface involving the mid to lower right hemithorax. There is a small loculated, lower lung pleural effusion. Dense masslike consolidations involving the lower lateral aspect of the right lower lobe and anterior pleural-based aspect of the right middle lobe. The right middle lobe lesion demonstrates some overlying interstitial and septal architectural distortion. There are no air bronchograms in the right lower lobe lesion which appears slightly more masslike. No suspicious mass, nodule, pleural thickening, or effusion in the left lung. Heart: The heart is enlarged, particularly the right atrium. No pericardial effusion. Thoracic Vessels: The aorta and pulmonary arteries demonstrate normal size. Mediastinum and Trish: No enlarged lymph nodes. Esophagus: No wall thickening. No hiatal hernia. Upper Abdomen: There is a partially imaged hypodense lesion anteriorly in the left lobe of the liver, present remotely and likely a cyst. Splenic calcifications consistent with granulomas. Visible portions of upper abdominal organs are otherwise normal. IMPRESSION: Thickened enhancing right lower lung pleural with small effusion. Differential diagnosis includes empyema as well as metastatic pleural disease from breast cancer. Right middle and lower lobe parenchymal consolidations have a differential diagnosis of infection, postobstructive pneumonia, aspiration, rounded atelectasis (particularly the right middle lobe lesion), and malignancy. Clinical correlation is recommended. Skin retraction, soft tissue thickening, and chest wall thickening in the right lower breast suspicious for treated or active metastatic disease. Dictated by: Akua Ferguson M.D. on 03/06/2025 at 12:21 Approved by: Akua Ferguson M.D. on 03/06/2025 at 12:33
== END ==
PROVIDERS: PCP Family Medicine; Referring Provider Family Medicine; Visit Provider Internal Medicine
DX: R91.8 Other nonspecific abnormal finding of lung field (principal); J90 Pleural effusion, not elsewhere classified; J98.11 Atelectasis; J85.2 Abscess of lung without pneumonia; I50.30 Unspecified diastolic (congestive) heart failure
CPT/HCPCS: 71260; Q9967

== ENCOUNTER → 2025-06-17 11:53 | Outpatient (CLI) | payer MEDICARE, OTHER, SELFPAY ==
[2024-09-20 14:07] VITALS: BMI 20.2
--- NOTE | 2025-06-17 11:55 | DI.RAD.S_ITS ---
PROCEDURE: XR FOOT LT MIN 3V INDICATIONS: pain at heel x 2 months TECHNIQUE: 3 views of the foot were acquired. COMPARISON: None. FINDINGS: Large plantar calcaneal spur with adjacent soft tissue calcification. 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 No acute fracture or dislocation. IMPRESSION: Calcaneal spurring. Adjacent soft tissue calcifications could be dystrophic from plantar fascial tear. Dictated by: Carlos Cuevas M.D. on 06/17/2025 at 12:43 Approved by: Carlos Cuevas M.D. on 06/17/2025 at 12:46
== END ==
PROVIDERS: PCP Family Medicine; Referring Provider Physician Assistant; Visit Provider Physician Assistant
DX: M19.072 Primary osteoarthritis, left ankle and foot (principal); M77.32 Calcaneal spur, left foot; M79.672 Pain in left foot
CPT/HCPCS: 73630

== ENCOUNTER → 2025-07-16 16:01 | Outpatient (CLI) | payer MEDICARE, OTHER, SELFPAY ==
[2024-09-20 14:07] VITALS: BMI 20.2
[2025-07-16 17:03] LABS: Coronavirus NL 63 Not Detected (Not Detect); SARS- CoV-2 Not Detected (Not Detecte)
== END ==
LOC: LAB 16:02
PROVIDERS: PCP Family Medicine; Visit Provider Physician Assistant
DX: J18.9 Pneumonia, unspecified organism (principal); R05.9 Cough, unspecified
CPT/HCPCS: 87633

== ENCOUNTER → 2025-07-16 16:19 | Outpatient (CLI) | payer MEDICARE, OTHER, SELFPAY ==
[2024-09-20 14:07] VITALS: BMI 20.2
--- NOTE | 2025-07-16 16:20 | DI.RAD.S_ITS ---
PROCEDURE: XR CHEST 2V INDICATIONS: Cough w/chest pain; NAGEL Past hx of pleural effusion RML TECHNIQUE: 2 views of the chest were acquired. COMPARISON: [facility], CT, CT CHEST W CON, 03/05/2025, 11:37. [facility], CR, XR CHEST 1V, 06/04/2024, 9:48. FINDINGS: Surgical changes and devices: None. Lungs and pleura: Right lower lobe masslike opacity and mild effusion. Mediastinum: Mediastinal contours are normal. Heart size is normal. Bones and chest wall: No suspicious bony abnormalities. Soft tissues appear unremarkable. IMPRESSION: Right lower lobe masslike opacity as identified on prior exam. Mild effusion. Dictated by: Simran Wilson M.D. on 07/16/2025 at 16:50 Approved by: Simran Wilson M.D. on 07/16/2025 at 16:51
== END ==
PROVIDERS: PCP Family Medicine; Referring Provider Physician Assistant; Visit Provider Physician Assistant
DX: J18.9 Pneumonia, unspecified organism (principal); J90 Pleural effusion, not elsewhere classified; R05.9 Cough, unspecified
CPT/HCPCS: 71046; 87633

== ENCOUNTER 2025-07-18 11:58 | Emergency (ER) | payer MEDICARE, OTHER, SELFPAY ==
[2024-09-20 14:07] VITALS: BMI 20.2
[2025-07-18] VITALS (55 sets, daily range): BP systolic 78–124; BP diastolic 50–84; PULSE 104–148; RESP 18–39; TEMP 36.4; O2SAT 47–98; BMI 18.3
--- NOTE | 2025-07-18 12:08 | ED.SOB ---
HPI - SOB/Dyspnea <Dinorah Palomo PA-C - Last Filed: 07/18/25 19:17> General Chief Complaint: Shortness of Breath/Dyspnea Stated Complaint: Severe cough. Shortness of breath. [facility] Time Seen by Provider: 07/18/25 12:07 History of Present Illness HPI Narrative: Ms. Jackman is a pleasant 82-year-old female with a past medical history of HFpEF, R breast Ca s/p right lumpectomy/radiation/chemotherapy in remission since 2012, Afib on 2.5 mg Eliquis, recurrent R pleural effusion s/p thoracentesis about 5 months ago, questionable right lung mass who presents to the emergency department for worsening cough and shortness of breath x 4 days. Patient has been working with Cardiology Dr. Ibarra and pulmonology Dr. Diaz over the last year due to recurrent right-sided pleural effusions that were treated with thoracentesis, reported to not be malignant or infectious. She has been on a good medication regimen and has therefore not needed a thoracentesis in about 5 months. However a few days ago she started feeling shortness of breath, dyspnea on exertion, and a very wet cough. She went to her PCP 2 days ago and was started on Augmentin and had an outpatient x-ray. Today she had a follow up appointment in the outpatient x-ray revealed a ?right lower lobe masslike opacity as identified on prior exam. Mild effusion so she was sent to the ER for further management. Patient did have a CT chest abdomen and pelvis in November of this year that revealed new masslike consolidations in the right lung measuring up to 6.3 cm, at that time PET scan and/or sampling was recommended however it sounds like the patient attempted to have a biopsy performed but eventually this did not occur. Her daughter at the bedside states that she was reporting right-sided chest/rib pain on Tuesday however at this time the patient denies any pain. She denies documented fevers but reports that she was sweaty last night. She has also been losing weight. She denies chest pain, abdominal pain, dysuria, constipation, diarrhea, vomiting. Denies prior AL, stroke or blood clot. Related Data Home Medications ?Medication ?Instructions ?Recorded ?Confirmed melatonin 5 mg tablet 5 mg PO BEDTIME PRN Sleep 08/08/18 07/18/25 cholecalciferol (vitamin D3) 50 50 mcg PO DAILY 05/15/21 07/18/25 mcg (2,000 unit) capsule ascorbic acid (vitamin C) 500 mg 500 mg PO DAILY 05/21/21 07/18/25 tablet (Vitamin C) zinc 50 mg capsule 50 mg PO DAILY 05/21/21 07/18/25 empagliflozin 10 mg tablet 10 mg PO DAILY 05/24/24 07/18/25 (Jardiance) spironolactone 25 mg tablet 25 mg PO DAILY 05/24/24 07/18/25 psyllium husk 3.4 gram/5.4 gram 1 tbsp PO DAILY 11/01/24 07/18/25 oral powder (Metamucil) apixaban 2.5 mg tablet (Eliquis) 2.5 mg PO BID 03/19/25 07/18/25 Previous Rx's ?Medication ?Instructions ?Recorded metoprolol succinate 50 mg 50 mg PO BID #180 tabs 09/28/21 tablet,extended release 24 hr polyethylene glycol 3350 17 gram 17 gm PO BID #565 ea 11/29/23 oral powder packet furosemide 40 mg tablet (Lasix) 40 mg PO DAILY #60 tabs 04/18/24 ketoconazole 2 % topical cream See Rx Instructions topical BID 01/31/25 #30 grams lidocaine 5 % topical patch 2 patch topical DAILY #30 ea 03/19/25 gabapentin 300 mg capsule 300 mg PO DAILY #90 caps 05/27/25 mupirocin calcium 2 % topical cream 1 applic topical BID #30 grams 06/18/25 amoxicillin 500 mg-potassium 1 tab PO BID #14 tabs 07/16/25 clavulanate 125 mg tablet Allergies Allergy/AdvReac Type Severity Reaction Status Date / Time tramadol Allergy Intermediate Confusion Verified 07/18/25 12:12 codeine Allergy Mild BODY ITCH Verified 07/18/25 12:12 Review of Systems <Dinorah Palomo PA-C - Last Filed: 07/18/25 19:17> Review of Systems ROS Unobtainable: All systems reviewed & are unremarkable except as noted in HPI and below Patient History <Dinorah Palomo PA-C - Last Filed: 07/18/25 19:17> Medical History Pleural effusion CTS (carpal tunnel syndrome) A-fib Facet arthropathy, lumbar Scoliosis Breast cancer in female Surgical History Status post laminectomy Family History Father Hypertension Mother Congestive heart failure Social History marital status: household members: none alcohol intake: current substance use type: does not use alcohol intake frequency: a few times a week Alcohol type: wine Exam <Dinorah Palomo PA-C - Last Filed: 07/18/25 19:17> Narrative Exam Narrative: GENERAL: 89 year old patient appears stated age. Well-developed patient, in no acute distress. HEAD: Atraumatic. Normocephalic. EYES: Extraocular motions intact. No scleral icterus. No injection or drainage. NECK: Trachea midline. Cervical ROM intact. CARDIOVASCULAR: Increased rate. RESPIRATORY: ?Speaking in clear, full sentences. There is somewhat gurgling inspiratory breath sounds throughout. No expiratory wheezing. GASTROINTESTINAL: Abdomen soft, non-tender. Patient does have lower abdominal fullness. EXTREMITIES: No LE edema. NEURO: AOx3. ?Clear speech. ?Moves all 4 extremities appropriately. SKIN: No rash or erythema of visible areas Initial Vital Signs Initial Vital Signs: Vital Signs Temperature 97.6 F 07/18/25 12:00 Pulse Rate 125 H 07/18/25 12:00 Respiratory Rate 18 07/18/25 12:00 Blood Pressure 101/58 L 07/18/25 12:00 Pulse Oximetry 88 L 07/18/25 12:00 Oxygen Delivery Method Room Air 07/18/25 12:00 <Amrik Guevara DO - Last Filed: 07/19/25 01:44> Initial Vital Signs Initial Vital Signs: Vital Signs Temperature 97.6 F 07/18/25 12:00 Pulse Rate 125 H 07/18/25 12:00 Respiratory Rate 18 07/18/25 12:00 Blood Pressure 101/58 L 07/18/25 12:00 Pulse Oximetry 88 L 07/18/25 12:00 Oxygen Delivery Method Room Air 07/18/25 12:00 Course <Dinorah Palomo PA-C - Last Filed: 07/18/25 19:17> Orders Ordered: ED Orders 07/18/25 19:00 Urinalysis and Microscopic Stat Melatonin (Melatonin 3 Mg Tablet) 3 mg PO BEDTIME BALAJI Last Admin: 07/18/25 23:38 Dose: 3 mg Documented By: JARETT Discontinued Medications Diltiazem HCl (Diltiazem 25 Mg/5 Ml Sdv) 4.5 mg IV NOW ONE Stop: 07/18/25 13:19 Last Admin: 07/18/25 17:31 Dose: Not Given Documented By: EMIGDIO Gabapentin (Gabapentin 100 Mg Capsule) 200 mg PO NOW ONE Stop: 07/18/25 23:14 Last Admin: 07/18/25 23:38 Dose: 200 mg Documented By: JARETT Sodium Chloride (Normal Saline 0.9%) 1,592.1 mls @ 1,061.4 mls/hr 30 ml/kg infuse over 90 min (1592.1 ml) IV NOW ONE Stop: 07/18/25 13:58 Last Infusion: 07/18/25 15:01 Dose: Infused Documented By: Admin: 07/18/25 12:46 Dose: 1,061.4 mls/hr Documented By: TERESA Cefepime HCl 2 gm/ Sodium (Chloride) 100 mls @ 200 mls/hr IV STAT ONE Stop: 07/18/25 12:30 Last Infusion: 07/18/25 13:51 Dose: Infused Documented By: Admin: 07/18/25 12:46 Dose: 200 mls/hr Documented By: TERESA Metoprolol Succinate (Metoprolol Er 50 Mg Tablet) 50 mg PO NOW ONE Stop: 07/18/25 15:08 Last Admin: 07/18/25 15:35 Dose: 50 mg Documented By: EMIGDIO Vital Signs Vital signs: Vital Signs - 8 hr 07/18/25 17:30 07/18/25 17:30 07/18/25 17:45 Pulse Rate 109 H 108 H Respiratory Rate 23 27 H Blood Pressure 91/62 Pulse Oximetry 96 96 Oxygen Delivery Method Oxygen Flow Rate 07/18/25 17:45 07/18/25 18:00 07/18/25 18:00 Pulse Rate 111 H Respiratory Rate 31 H Blood Pressure 94/61 98/62 Pulse Oximetry 96 Oxygen Delivery Method Oxygen Flow Rate 07/18/25 18:30 07/18/25 18:30 07/18/25 18:45 Pulse Rate 122 H 123 H Respiratory Rate 30 H 32 H Blood Pressure 97/54 L Pulse Oximetry 96 96 Oxygen Delivery Method Oxygen Flow Rate 07/18/25 18:45 07/18/25 18:48 07/18/25 18:48 Pulse Rate 119 H Respiratory Rate 30 H Blood Pressure 78/51 L 82/50 L Pulse Oximetry 95 Oxygen Delivery Method Oxygen Flow Rate 07/18/25 18:50 07/18/25 18:50 07/18/25 18:55 Pulse Rate 120 H 120 H Respiratory Rate 31 H 30 H Blood Pressure 82/56 L Pulse Oximetry 95 96 Oxygen Delivery Method Oxygen Flow Rate 07/18/25 18:55 07/18/25 19:00 07/18/25 19:00 Pulse Rate 119 H Respiratory Rate 26 H Blood Pressure 88/55 L 88/55 L Pulse Oximetry 96 Oxygen Delivery Method Oxygen Flow Rate 07/18/25 19:05 07/18/25 19:05 07/18/25 19:10 Pulse Rate 120 H 119 H Respiratory Rate 35 H 31 H Blood Pressure 92/59 L Pulse Oximetry 96 97 Oxygen Delivery Method Nasal Cannula Oxygen Flow Rate 3 07/18/25 19:10 07/18/25 19:15 07/18/25 19:15 Pulse Rate 120 H Respiratory Rate 34 H Blood Pressure 90/61 95/57 L Pulse Oximetry 96 Oxygen Delivery Method Room Air Oxygen Flow Rate 2 07/18/25 19:20 07/18/25 19:20 07/18/25 19:25 Pulse Rate 119 H Respiratory Rate 32 H Blood Pressure 101/71 99/60 Pulse Oximetry 97 Oxygen Delivery Method Nasal Cannula Oxygen Flow Rate 2 07/18/25 19:25 07/18/25 19:30 07/18/25 19:30 Pulse Rate 117 H 118 H Respiratory Rate 30 H 29 H Blood Pressure 99/58 L Pulse Oximetry 97 98 Oxygen Delivery Method Nasal Cannula Nasal Cannula Oxygen Flow Rate 2 2 07/18/25 19:45 07/18/25 19:45 07/18/25 20:00 Pulse Rate 119 H 117 H Respiratory Rate 31 H 26 H Blood Pressure 94/62 Pulse Oximetry 97 96 Oxygen Delivery Method Nasal Cannula Nasal Cannula Oxygen Flow Rate 2 2 07/18/25 20:00 07/18/25 20:15 07/18/25 20:15 Pulse Rate 118 H Respiratory Rate 32 H Blood Pressure 93/59 L 96/58 L Pulse Oximetry 97 Oxygen Delivery Method Nasal Cannula Oxygen Flow Rate 2 07/18/25 20:30 07/18/25 20:30 07/18/25 20:45 Pulse Rate 121 H Respiratory Rate 34 H Blood Pressure 94/62 102/64 Pulse Oximetry 96 Oxygen Delivery Method Nasal Cannula Oxygen Flow Rate 2 07/18/25 20:45 07/18/25 21:00 07/18/25 21:00 Pulse Rate 111 H 114 H Respiratory Rate 39 H 25 H Blood Pressure 98/71 Pulse Oximetry 96 98 Oxygen Delivery Method Nasal Cannula Nasal Cannula Oxygen Flow Rate 2 2 07/18/25 21:15 07/18/25 21:15 07/18/25 21:30 Pulse Rate 112 H 113 H Respiratory Rate 30 H 31 H Blood Pressure 97/68 Pulse Oximetry 96 96 Oxygen Delivery Method Nasal Cannula Nasal Cannula Oxygen Flow Rate 2 2 07/18/25 21:30 07/18/25 21:45 07/18/25 21:45 Pulse Rate 112 H Respiratory Rate 29 H Blood Pressure 99/63 102/69 Pulse Oximetry 97 Oxygen Delivery Method Nasal Cannula Oxygen Flow Rate 2 07/18/25 22:00 07/18/25 22:00 07/18/25 22:15 Pulse Rate 114 H 110 H Respiratory Rate 27 H 30 H Blood Pressure 102/68 Pulse Oximetry 97 97 Oxygen Delivery Method Nasal Cannula Nasal Cannula Oxygen Flow Rate 2 2 07/18/25 22:15 07/18/25 22:30 07/18/25 22:30 Pulse Rate 113 H Respiratory Rate 29 H Blood Pressure 102/64 113/65 Pulse Oximetry 97 Oxygen Delivery Method Nasal Cannula Oxygen Flow Rate 2 07/18/25 22:45 07/18/25 22:45 07/18/25 23:00 Pulse Rate 113 H 114 H Respiratory Rate 31 H 29 H Blood Pressure 106/63 Pulse Oximetry 96 96 Oxygen Delivery Method Nasal Cannula Nasal Cannula Oxygen Flow Rate 2 2 07/18/25 23:00 07/18/25 23:30 07/18/25 23:30 Pulse Rate 112 H Respiratory Rate 29 H Blood Pressure 115/63 103/61 Pulse Oximetry 96 Oxygen Delivery Method Nasal Cannula Oxygen Flow Rate 2 07/19/25 00:00 07/19/25 00:00 07/19/25 00:30 Pulse Rate 110 H Respiratory Rate 27 H Blood Pressure 99/67 96/65 Pulse Oximetry 96 Oxygen Delivery Method Nasal Cannula Oxygen Flow Rate 2 07/19/25 00:30 07/19/25 01:00 07/19/25 01:00 Pulse Rate 113 H 108 H Respiratory Rate 13 29 H Blood Pressure 106/66 Pulse Oximetry 95 96 Oxygen Delivery Method Nasal Cannula Nasal Cannula Oxygen Flow Rate 2 2 <Amrik Guevara, DO - Last Filed: 07/19/25 01:44> Orders Ordered: ED Orders 07/18/25 19:00 Urinalysis and Microscopic Stat Melatonin (Melatonin 3 Mg Tablet) 3 mg PO BEDTIME BALAJI Last Admin: 07/18/25 23:38 Dose: 3 mg Documented By: JARETT Discontinued Medications Diltiazem HCl (Diltiazem 25 Mg/5 Ml Sdv) 4.5 mg IV NOW ONE Stop: 07/18/25 13:19 Last Admin: 07/18/25 17:31 Dose: Not Given Documented By: EMIGDIO Gabapentin (Gabapentin 100 Mg Capsule) 200 mg PO NOW ONE Stop: 07/18/25 23:14 Last Admin: 07/18/25 23:38 Dose: 200 mg Documented By: JARETT Sodium Chloride (Normal Saline 0.9%) 1,592.1 mls @ 1,061.4 mls/hr 30 ml/kg infuse over 90 min (1592.1 ml) IV NOW ONE Stop: 07/18/25 13:58 Last Infusion: 07/18/25 15:01 Dose: Infused Documented By: Admin: 07/18/25 12:46 Dose: 1,061.4 mls/hr Documented By: TERESA Cefepime HCl 2 gm/ Sodium (Chloride) 100 mls @ 200 mls/hr IV STAT ONE Stop: 07/18/25 12:30 Last Infusion: 07/18/25 13:51 Dose: Infused Documented By: Admin: 07/18/25 12:46 Dose: 200 mls/hr Documented By: TERESA Metoprolol Succinate (Metoprolol Er 50 Mg Tablet) 50 mg PO NOW ONE Stop: 07/18/25 15:08 Last Admin: 07/18/25 15:35 Dose: 50 mg Documented By: EMIGDIO Vital Signs Vital signs: Vital Signs - 8 hr 07/18/25 17:30 07/18/25 17:30 07/18/25 17:45 Pulse Rate 109 H 108 H Respiratory Rate 23 27 H Blood Pressure 91/62 Pulse Oximetry 96 96 Oxygen Delivery Method Oxygen Flow Rate 07/18/25 17:45 07/18/25 18:00 07/18/25 18:00 Pulse Rate 111 H Respiratory Rate 31 H Blood Pressure 94/61 98/62 Pulse Oximetry 96 Oxygen Delivery Method Oxygen Flow Rate 07/18/25 18:30 07/18/25 18:30 07/18/25 18:45 Pulse Rate 122 H 123 H Respiratory Rate 30 H 32 H Blood Pressure 97/54 L Pulse Oximetry 96 96 Oxygen Delivery Method Oxygen Flow Rate 07/18/25 18:45 07/18/25 18:48 07/18/25 18:48 Pulse Rate 119 H Respiratory Rate 30 H Blood Pressure 78/51 L 82/50 L Pulse Oximetry 95 Oxygen Delivery Method Oxygen Flow Rate 07/18/25 18:50 07/18/25 18:50 07/18/25 18:55 Pulse Rate 120 H 120 H Respiratory Rate 31 H 30 H Blood Pressure 82/56 L Pulse Oximetry 95 96 Oxygen Delivery Method Oxygen Flow Rate 07/18/25 18:55 07/18/25 19:00 07/18/25 19:00 Pulse Rate 119 H Respiratory Rate 26 H Blood Pressure 88/55 L 88/55 L Pulse Oximetry 96 Oxygen Delivery Method Oxygen Flow Rate 07/18/25 19:05 07/18/25 19:05 07/18/25 19:10 Pulse Rate 120 H 119 H Respiratory Rate 35 H 31 H Blood Pressure 92/59 L Pulse Oximetry 96 97 Oxygen Delivery Method Nasal Cannula Oxygen Flow Rate 3 07/18/25 19:10 07/18/25 19:15 07/18/25 19:15 Pulse Rate 120 H Respiratory Rate 34 H Blood Pressure 90/61 95/57 L Pulse Oximetry 96 Oxygen Delivery Method Room Air Oxygen Flow Rate 2 07/18/25 19:20 07/18/25 19:20 07/18/25 19:25 Pulse Rate 119 H Respiratory Rate 32 H Blood Pressure 101/71 99/60 Pulse Oximetry 97 Oxygen Delivery Method Nasal Cannula Oxygen Flow Rate 2 07/18/25 19:25 07/18/25 19:30 07/18/25 19:30 Pulse Rate 117 H 118 H Respiratory Rate 30 H 29 H Blood Pressure 99/58 L Pulse Oximetry 97 98 Oxygen Delivery Method Nasal Cannula Nasal Cannula Oxygen Flow Rate 2 2 07/18/25 19:45 07/18/25 19:45 07/18/25 20:00 Pulse Rate 119 H 117 H Respiratory Rate 31 H 26 H Blood Pressure 94/62 Pulse Oximetry 97 96 Oxygen Delivery Method Nasal Cannula Nasal Cannula Oxygen Flow Rate 2 2 07/18/25 20:00 07/18/25 20:15 07/18/25 20:15 Pulse Rate 118 H Respiratory Rate 32 H Blood Pressure 93/59 L 96/58 L Pulse Oximetry 97 Oxygen Delivery Method Nasal Cannula Oxygen Flow Rate 2 07/18/25 20:30 07/18/25 20:30 07/18/25 20:45 Pulse Rate 121 H Respiratory Rate 34 H Blood Pressure 94/62 102/64 Pulse Oximetry 96 Oxygen Delivery Method Nasal Cannula Oxygen Flow Rate 2 07/18/25 20:45 07/18/25 21:00 07/18/25 21:00 Pulse Rate 111 H 114 H Respiratory Rate 39 H 25 H Blood Pressure 98/71 Pulse Oximetry 96 98 Oxygen Delivery Method Nasal Cannula Nasal Cannula Oxygen Flow Rate 2 2 07/18/25 21:15 07/18/25 21:15 07/18/25 21:30 Pulse Rate 112 H 113 H Respiratory Rate 30 H 31 H Blood Pressure 97/68 Pulse Oximetry 96 96 Oxygen Delivery Method Nasal Cannula Nasal Cannula Oxygen Flow Rate 2 2 07/18/25 21:30 07/18/25 21:45 07/18/25 21:45 Pulse Rate 112 H Respiratory Rate 29 H Blood Pressure 99/63 102/69 Pulse Oximetry 97 Oxygen Delivery Method Nasal Cannula Oxygen Flow Rate 2 07/18/25 22:00 07/18/25 22:00 07/18/25 22:15 Pulse Rate 114 H 110 H Respiratory Rate 27 H 30 H Blood Pressure 102/68 Pulse Oximetry 97 97 Oxygen Delivery Method Nasal Cannula Nasal Cannula Oxygen Flow Rate 2 2 07/18/25 22:15 07/18/25 22:30 07/18/25 22:30 Pulse Rate 113 H Respiratory Rate 29 H Blood Pressure 102/64 113/65 Pulse Oximetry 97 Oxygen Delivery Method Nasal Cannula Oxygen Flow Rate 2 07/18/25 22:45 07/18/25 22:45 07/18/25 23:00 Pulse Rate 113 H 114 H Respiratory Rate 31 H 29 H Blood Pressure 106/63 Pulse Oximetry 96 96 Oxygen Delivery Method Nasal Cannula Nasal Cannula Oxygen Flow Rate 2 2 07/18/25 23:00 07/18/25 23:30 07/18/25 23:30 Pulse Rate 112 H Respiratory Rate 29 H Blood Pressure 115/63 103/61 Pulse Oximetry 96 Oxygen Delivery Method Nasal Cannula Oxygen Flow Rate 2 07/19/25 00:00 07/19/25 00:00 07/19/25 00:30 Pulse Rate 110 H Respiratory Rate 27 H Blood Pressure 99/67 96/65 Pulse Oximetry 96 Oxygen Delivery Method Nasal Cannula Oxygen Flow Rate 2 07/19/25 00:30 07/19/25 01:00 07/19/25 01:00 Pulse Rate 113 H 108 H Respiratory Rate 13 29 H Blood Pressure 106/66 Pulse Oximetry 95 96 Oxygen Delivery Method Nasal Cannula Nasal Cannula Oxygen Flow Rate 2 2 MDM - SOB/Dyspnea <Dinorah Palomo PA-C - Last Filed: 07/18/25 19:17> Medical Records Attestation: I reviewed the patient's medical records. Lab Data 07/18/25 12:12 07/18/25 12:12 Labs: Lab Results 07/18/25 07/18/25 07/18/25 Range/Units 12:12 13:55 14:30 WBC 11.2 H (4.5-11.0) X10^3/uL RBC 3.90 L (4.0-5.2) X10^6/uL Hgb 13.2 (12.0-16.0) g/dL Hct 39.1 (36-46) % MCV 100.5 H (80-100) fL MCH 34.0 (26-34) PG MCHC 33.8 (30-36) % RDW 13.5 (11.6-14.8) % Plt Count 365 (150-400) X10^3/uL Neut % (Auto) 86.2 H (50-75) % Lymph % (Auto) 5.0 L (25-40) % [place] % (Auto) 8.5 (3-14) % Eos % (Auto) 0.1 L (2-4) % Baso % (Auto) 0.2 (0-2) % Neut # (Auto) 9600 H (9964-2750) /uL Lymph # (Auto) 600 L (7850-6686) /uL [place] # (Auto) 1000 H (0-900) /uL Eos # (Auto) 0 (0-450) /uL Baso # (Auto) 0 (0-100) /uL PT 16.2 H (9.4-12.5) SECONDS INR 1.4 H (0.9-1.3) APTT 33 (25.1-36.5) SECONDS Sodium 141 (137-145) mmol/L Potassium 3.8 (3.4-5.1) mmol/L Chloride 98 (98-107) mmol/L Carbon Dioxide 31 (22-32) mmol/L BUN 42 H (7-17) mg/dL Creatinine 0.76 (0.52-1.04) mg/dL Estimated GFR > 60 (>60) mL/min BUN/Creatinine Ratio 55.3 H (6-22) Glucose 140 H (70-99) mg/dL Lactate 1.6 (0.7-2.1) mmol/L Calcium 10.0 (8.4-10.2) mg/dL Total Bilirubin 0.6 (0.2-1.3) mg/dL AST 72 H (14-36) IU/L ALT 43 H (<35) IU/L Alkaline Phosphatase 127 H (38-126) U/L Total Creatine Kinase 22 L (30-135) U/L Troponin I 0.058 H 0.055 H (0.01-0.034) ng/mL NT-Pro-B Natriuret Pep 2700 H (<450) pg/mL Total Protein 8.7 H (6.3-8.2) g/dL Albumin 4.3 (3.5-5.0) g/dL Globulin 4.4 H (1.7-4.1) g/dL Albumin/Globulin Ratio 1.0 (1.0-2.8) Procalcitonin 0.217 (<0.5) ng/mL Urine Color Urine Appearance Urine pH (4.5-8.0) Ur Specific [place] (1.000-1.035) Urine Protein (Negative) Urine Glucose (UA) (Negative) g/dL Urine Ketones (NEGATIVE) Urine Occult Blood (Negative) Urine Nitrate (Negative) Urine Bilirubin (NEGATIVE) Urine Urobilinogen (0.2) E.U./dL Ur Leukocyte Esterase (NEGATIVE) Urine RBC (0-5/HPF) Urine WBC (0-5/HPF) Ur Squamous Epith Cells (0-5/HPF) Urine Bacteria (None) Ur Culture Indicated? Vol Urine Centrifuged Chlamy pneumoniae PCR Not detected (Not Detect) Adenovirus (PCR) Not detected (Not Detect) B. pertussis DNA (PCR) Not detected (Not Detect) B.parapertussis DNA PCR Not detected (Not Detecte) Coronavirus OC43 (PCR) Not detected (Not Detect) Coronavirus HKU1 (PCR) Not detected (Not Detect) Coronavirus 229E (PCR) Not detected (Not Detect) SARS-CoV-2 (PCR) Not detected (Not Detecte) Coronavirus NL63 (PCR) Not detected (Not Detect) Human Metapneumovir PCR Not detected (Not Detect) Influenza Type A (PCR) Not detected (Not Detect) Influenza Type B (PCR) Not detected (Not Detect) M. pneumoniae (PCR) Not detected (Not Detect) Parainfluenza 1 (PCR) Not detected (Not Detect) Parainfluenza 2 (PCR) Not detected (Not Detect) Parainfluenza 3 (PCR) Not detected (Not Detect) Parainfluenza 4 (PCR) Not detected (Not Detect) RSV (PCR) Not detected (Not Detect) Entero/Rhino (PCR) Not detected (Not Detect) 07/18/25 Range/Units 19:00 WBC (4.5-11.0) X10^3/uL RBC (4.0-5.2) X10^6/uL Hgb (12.0-16.0) g/dL Hct (36-46) % MCV (80-100) fL MCH (26-34) PG MCHC (30-36) % RDW (11.6-14.8) % Plt Count (150-400) X10^3/uL Neut % (Auto) (50-75) % Lymph % (Auto) (25-40) % [place] % (Auto) (3-14) % Eos % (Auto) (2-4) % Baso % (Auto) (0-2) % Neut # (Auto) (0310-3912) /uL Lymph # (Auto) (5712-6044) /uL [place] # (Auto) (0-900) /uL Eos # (Auto) (0-450) /uL Baso # (Auto) (0-100) /uL PT (9.4-12.5) SECONDS INR (0.9-1.3) APTT (25.1-36.5) SECONDS Sodium (137-145) mmol/L Potassium (3.4-5.1) mmol/L Chloride (98-107) mmol/L Carbon Dioxide (22-32) mmol/L BUN (7-17) mg/dL Creatinine (0.52-1.04) mg/dL Estimated GFR (>60) mL/min BUN/Creatinine Ratio (6-22) Glucose (70-99) mg/dL Lactate (0.7-2.1) mmol/L Calcium (8.4-10.2) mg/dL Total Bilirubin (0.2-1.3) mg/dL AST (14-36) IU/L ALT (<35) IU/L Alkaline Phosphatase (38-126) U/L Total Creatine Kinase (30-135) U/L Troponin I (0.01-0.034) ng/mL NT-Pro-B Natriuret Pep (<450) pg/mL Total Protein (6.3-8.2) g/dL Albumin (3.5-5.0) g/dL Globulin (1.7-4.1) g/dL Albumin/Globulin Ratio (1.0-2.8) Procalcitonin (<0.5) ng/mL Urine Color Yellow Urine Appearance Clear Urine pH 5.5 (4.5-8.0) Ur Specific [place] 1.010 (1.000-1.035) Urine Protein 1+ H (Negative) Urine Glucose (UA) 3+ H (Negative) g/dL Urine Ketones Trace H (NEGATIVE) Urine Occult Blood 2+ H (Negative) Urine Nitrate Negative (Negative) Urine Bilirubin Negative (NEGATIVE) Urine Urobilinogen 0.2 (0.2) E.U./dL Ur Leukocyte Esterase Negative (NEGATIVE) Urine RBC 10-30/hpf H (0-5/HPF) Urine WBC 0-1/hpf (0-5/HPF) Ur Squamous Epith Cells 1-5 /hpf (0-5/HPF) Urine Bacteria Few (2-10) H (None) Ur Culture Indicated? Cult not indicated Vol Urine Centrifuged 10ml (spun) Chlamy pneumoniae PCR (Not Detect) Adenovirus (PCR) (Not Detect) B. pertussis DNA (PCR) (Not Detect) B.parapertussis DNA PCR (Not Detecte) Coronavirus OC43 (PCR) (Not Detect) Coronavirus HKU1 (PCR) (Not Detect) Coronavirus 229E (PCR) (Not Detect) SARS-CoV-2 (PCR) (Not Detecte) Coronavirus NL63 (PCR) (Not Detect) Human Metapneumovir PCR (Not Detect) Influenza Type A (PCR) (Not Detect) Influenza Type B (PCR) (Not Detect) M. pneumoniae (PCR) (Not Detect) Parainfluenza 1 (PCR) (Not Detect) Parainfluenza 2 (PCR) (Not Detect) Parainfluenza 3 (PCR) (Not Detect) Parainfluenza 4 (PCR) (Not Detect) RSV (PCR) (Not Detect) Entero/Rhino (PCR) (Not Detect) Imaging Data Chest x-ray: Radiologist's Impression: PROCEDURE: XR CHEST 1V INDICATIONS: SOB TECHNIQUE: One view of the chest was acquired. COMPARISON: [facility], CR, XR CHEST 2V, 07/16/2025, 16:18. FINDINGS: Heart is enlarged. Flattening of the diaphragms. Loculated right effusion with rounded opacity similar prior examination. Bilateral mid lower lung interstitial markings. Scoliosis. Osseous demineralization. No pneumothorax. IMPRESSION: Stable examination Dictated by: Carlos Cuevas M.D. on 07/18/2025 at 13:17 Approved by: Carlos Cuevas M.D. on 07/18/2025 at 13:22 Chest CTA: Radiologist's Impression: PROCEDURE: CT ANGIO CHEST PE PROTOCOL INDICATIONS: R lung masslike opacity; tachy hypoxic PE? TECHNIQUE: After the administration of intravenous contrast, 2 mm thick sections acquired from the pulmonary apices to the posterior costophrenic angles. 3-dimensional maximum intensity projection (MIP) coronal and sagittal reformats were then acquired through the thorax. For radiation dose reduction, the following was used: automated exposure control, adjustment of mA and/or kV according to patient size. COMPARISON: [facility], CT, CT CHEST W CON, 03/05/2025, 11:37. FINDINGS: Quality: Diagnostic. Vasculature: Aorta: No aneurysm. Atherosclerotic calcifications. Pulmonary arteries: No emboli. Lungs: Chronic loculated right pleural effusion with thickened pleura similar to prior examination. Small left effusion without evidence of loculation. Areas of presumed rounded atelectasis in the right lower lobe and right middle Consolidation or atelectasis in the left lower lobe in lingula new from prior. Mild diffuse bronchial wall thickening. Mediastinum: Thyroid: Unremarkable. Esophagus: Unremarkable. Heart: Cardiac enlargement similar to prior. No pericardial effusion. Lymph nodes: No adenopathy. Other: Chest wall: Unchanged calcified right breast mass and surgical clips.. Upper abdomen: Unremarkable. Bones: No aggressive osseous lesion. Scoliosis. IMPRESSION: Chronic loculated pleural effusion on the right with thickened pleura similar to prior. Presumed rounded atelectasis in the right middle and lower lobe again noted but increased in the right middle lobe. New small left effusion without evidence of atelectasis. New consolidation or atelectasis in the left lower lobe and lingula. No pulmonary embolism. Cardiomegaly. Dictated by: Carlos Cuevas M.D. on 07/18/2025 at 14:26 Approved by: Carlos Cuevas M.D. on 07/18/2025 at 14:37 ECG Data Interpretation: EKG reveals atrial fibrillation with a ventricular rate of 111 beats per minute, QTC 388, no ST segment elevation MDM Narrative Medical decision making narrative: 82-year-old female with a past medical history of HFpEF, R breast Ca s/p right lumpectomy/radiation/chemotherapy in remission since 2012, Afib on 2.5 mg Eliquis, recurrent R pleural effusion s/p thoracentesis about 5 months ago, questionable right lung mass who presents to the emergency department for worsening cough and shortness of breath x 4 days. Differential diagnosis includes but is not limited to pneumonia, lung abscess, pleural effusion, malignancy, metastatic disease, PE, etc. On exam the patient is in no acute distress, she is tachycardic, hypoxic, hypotensive but afebrile. She is alert and oriented and can provide her own history. She is here for a few days of worsening cough and shortness of breath with a history of uncertain mass in right lung. Prior imaging has been concerning for malignancy however patient has not had biopsy. Her oxygen saturation is currently in the mid 90s on 2 L nasal cannula. We will initiate sepsis orders with IV fluids, antibiotics and obtain more advanced imaging of the chest. Chest x-ray reveals enlarged heart, flattening of the diaphragms, loculated right effusion with rounded opacity similar to prior exam. Bilateral mid lower lung interstitial markings. Scoliosis. EKG reveals AFib RVR with a rate of 111. Labs reveal slightly elevated WBC 11.2 with neutrophil predominance. Sodium 141, potassium 3.8, BUN elevated 42 creatinine 0.76. Glucose 140. Slight elevations of AST 72, ALT 43, alkaline phosphatase 127. Troponin is elevated at 0.058, no current chest pain, we will repeat in 2 hours. BNP is elevated 2700. Procalcitonin is normal 0.217. Lactate normal 1.6. Respiratory panel negative 07/16/25. Chest CTA reveals chronic loculated pleural effusion on the right with thickened pleura similar to prior. Presumed rounded atelectasis in the right middle and lower lobe again noted but increased in the right middle lobe. New small left effusion without evidence of atelectasis. New consolidation or atelectasis in the left lower lobe and lingula. No PE. Cardiomegaly. 1540: Discussed case with PCP/hospitalist Dr. Major. At this time and has been determined that patient requires transfer for higher level of care for treatment of presumed infected loculated pleural effusion, possible malignancy, requires a facility that has interventional Radiology. 1758: Spoke with hospitalist Dr. Lovell at [facility] who accepts the patient for admission to [facility] tele with IR Dr. Anni Tom planning for drainage tomorrow evening. Patient and her family are aware and agreeable to the transfer for higher level of care, interventional radiology intervention, and she is stable at this time. 1900: Informed by nursing staff patient's blood pressure is lower. Reassessed patient, she denies any new or worsening symptoms. Will add on additional 500 ml IVF. Discussed with nighttime physician, Dr. Guevara. We will continue to monitor BP, if vassopressors are needed we will need to call [facility] back for update on higher level of care need. <Amrik Guevara, DO - Last Filed: 07/19/25 01:44> Lab Data Labs: Lab Results 12/18/25 12/18/25 12/18/25 Range/Units 12:12 13:55 14:30 WBC 11.2 H (4.5-11.0) X10^3/uL RBC 3.90 L (4.0-5.2) X10^6/uL Hgb 13.2 (12.0-16.0) g/dL Hct 39.1 (36-46) % MCV 100.5 H (80-100) fL MCH 34.0 (26-34) PG MCHC 33.8 (30-36) % RDW 13.5 (11.6-14.8) % Plt Count 365 (150-400) X10^3/uL Neut % (Auto) 86.2 H (50-75) % Lymph % (Auto) 5.0 L (25-40) % [place] % (Auto) 8.5 (3-14) % Eos % (Auto) 0.1 L (2-4) % Baso % (Auto) 0.2 (0-2) % Neut # (Auto) 9600 H (5372-0824) /uL Lymph # (Auto) 600 L (3452-7779) /uL [place] # (Auto) 1000 H (0-900) /uL Eos # (Auto) 0 (0-450) /uL Baso # (Auto) 0 (0-100) /uL PT 16.2 H (9.4-12.5) SECONDS INR 1.4 H (0.9-1.3) APTT 33 (25.1-36.5) SECONDS Sodium 141 (137-145) mmol/L Potassium 3.8 (3.4-5.1) mmol/L Chloride 98 (98-107) mmol/L Carbon Dioxide 31 (22-32) mmol/L BUN 42 H (7-17) mg/dL Creatinine 0.76 (0.52-1.04) mg/dL Estimated GFR > 60 (>60) mL/min BUN/Creatinine Ratio 55.3 H (6-22) Glucose 140 H (70-99) mg/dL Lactate 1.6 (0.7-2.1) mmol/L Calcium 10.0 (8.4-10.2) mg/dL Total Bilirubin 0.6 (0.2-1.3) mg/dL AST 72 H (14-36) IU/L ALT 43 H (<35) IU/L Alkaline Phosphatase 127 H (38-126) U/L Total Creatine Kinase 22 L (30-135) U/L Troponin I 0.058 H 0.055 H (0.01-0.034) ng/mL NT-Pro-B Natriuret Pep 2700 H (<450) pg/mL Total Protein 8.7 H (6.3-8.2) g/dL Albumin 4.3 (3.5-5.0) g/dL Globulin 4.4 H (1.7-4.1) g/dL Albumin/Globulin Ratio 1.0 (1.0-2.8) Procalcitonin 0.217 (<0.5) ng/mL Urine Color Urine Appearance Urine pH (4.5-8.0) Ur Specific [place] (1.000-1.035) Urine Protein (Negative) Urine Glucose (UA) (Negative) g/dL Urine Ketones (NEGATIVE) Urine Occult Blood (Negative) Urine Nitrate (Negative) Urine Bilirubin (NEGATIVE) Urine Urobilinogen (0.2) E.U./dL Ur Leukocyte Esterase (NEGATIVE) Urine RBC (0-5/HPF) Urine WBC (0-5/HPF) Ur Squamous Epith Cells (0-5/HPF) Urine Bacteria (None) Ur Culture Indicated? Vol Urine Centrifuged Chlamy pneumoniae PCR Not detected (Not Detect) Adenovirus (PCR) Not detected (Not Detect) B. pertussis DNA (PCR) Not detected (Not Detect) B.parapertussis DNA PCR Not detected (Not Detecte) Coronavirus OC43 (PCR) Not detected (Not Detect) Coronavirus HKU1 (PCR) Not detected (Not Detect) Coronavirus 229E (PCR) Not detected (Not Detect) SARS-CoV-2 (PCR) Not detected (Not Detecte) Coronavirus NL63 (PCR) Not detected (Not Detect) Human Metapneumovir PCR Not detected (Not Detect) Influenza Type A (PCR) Not detected (Not Detect) Influenza Type B (PCR) Not detected (Not Detect) M. pneumoniae (PCR) Not detected (Not Detect) Parainfluenza 1 (PCR) Not detected (Not Detect) Parainfluenza 2 (PCR) Not detected (Not Detect) Parainfluenza 3 (PCR) Not detected (Not Detect) Parainfluenza 4 (PCR) Not detected (Not Detect) RSV (PCR) Not detected (Not Detect) Entero/Rhino (PCR) Not detected (Not Detect) 07/18/25 Range/Units 19:00 WBC (4.5-11.0) X10^3/uL RBC (4.0-5.2) X10^6/uL Hgb (12.0-16.0) g/dL Hct (36-46) % MCV (80-100) fL MCH (26-34) PG MCHC (30-36) % RDW (11.6-14.8) % Plt Count (150-400) X10^3/uL Neut % (Auto) (50-75) % Lymph % (Auto) (25-40) % [place] % (Auto) (3-14) % Eos % (Auto) (2-4) % Baso % (Auto) (0-2) % Neut # (Auto) (7904-0151) /uL Lymph # (Auto) (2717-3468) /uL [place] # (Auto) (0-900) /uL Eos # (Auto) (0-450) /uL Baso # (Auto) (0-100) /uL PT (9.4-12.5) SECONDS INR (0.9-1.3) APTT (25.1-36.5) SECONDS Sodium (137-145) mmol/L Potassium (3.4-5.1) mmol/L Chloride (98-107) mmol/L Carbon Dioxide (22-32) mmol/L BUN (7-17) mg/dL Creatinine (0.52-1.04) mg/dL Estimated GFR (>60) mL/min BUN/Creatinine Ratio (6-22) Glucose (70-99) mg/dL Lactate (0.7-2.1) mmol/L Calcium (8.4-10.2) mg/dL Total Bilirubin (0.2-1.3) mg/dL AST (14-36) IU/L ALT (<35) IU/L Alkaline Phosphatase (38-126) U/L Total Creatine Kinase (30-135) U/L Troponin I (0.01-0.034) ng/mL NT-Pro-B Natriuret Pep (<450) pg/mL Total Protein (6.3-8.2) g/dL Albumin (3.5-5.0) g/dL Globulin (1.7-4.1) g/dL Albumin/Globulin Ratio (1.0-2.8) Procalcitonin (<0.5) ng/mL Urine Color Yellow Urine Appearance Clear Urine pH 5.5 (4.5-8.0) Ur Specific [place] 1.010 (1.000-1.035) Urine Protein 1+ H (Negative) Urine Glucose (UA) 3+ H (Negative) g/dL Urine Ketones Trace H (NEGATIVE) Urine Occult Blood 2+ H (Negative) Urine Nitrate Negative (Negative) Urine Bilirubin Negative (NEGATIVE) Urine Urobilinogen 0.2 (0.2) E.U./dL Ur Leukocyte Esterase Negative (NEGATIVE) Urine RBC 10-30/hpf H (0-5/HPF) Urine WBC 0-1/hpf (0-5/HPF) Ur Squamous Epith Cells 1-5 /hpf (0-5/HPF) Urine Bacteria Few (2-10) H (None) Ur Culture Indicated? Cult not indicated Vol Urine Centrifuged 10ml (spun) Chlamy pneumoniae PCR (Not Detect) Adenovirus (PCR) (Not Detect) B. pertussis DNA (PCR) (Not Detect) B.parapertussis DNA PCR (Not Detecte) Coronavirus OC43 (PCR) (Not Detect) Coronavirus HKU1 (PCR) (Not Detect) Coronavirus 229E (PCR) (Not Detect) SARS-CoV-2 (PCR) (Not Detecte) Coronavirus NL63 (PCR) (Not Detect) Human Metapneumovir PCR (Not Detect) Influenza Type A (PCR) (Not Detect) Influenza Type B (PCR) (Not Detect) M. pneumoniae (PCR) (Not Detect) Parainfluenza 1 (PCR) (Not Detect) Parainfluenza 2 (PCR) (Not Detect) Parainfluenza 3 (PCR) (Not Detect) Parainfluenza 4 (PCR) (Not Detect) RSV (PCR) (Not Detect) Entero/Rhino (PCR) (Not Detect) MDM Narrative Medical decision making narrative: 82-year-old female with a past medical history of HFpEF, R breast Ca s/p right lumpectomy/radiation/chemotherapy in remission since 2012, Afib on 2.5 mg Eliquis, recurrent R pleural effusion s/p thoracentesis about 5 months ago, questionable right lung mass who presents to the emergency department for worsening cough and shortness of breath x 4 days. Differential diagnosis includes but is not limited to pneumonia, lung abscess, pleural effusion, malignancy, metastatic disease, PE, etc. On exam the patient is in no acute distress, she is tachycardic, hypoxic, hypotensive but afebrile. She is alert and oriented and can provide her own history. She is here for a few days of worsening cough and shortness of breath with a history of uncertain mass in right lung. Prior imaging has been concerning for malignancy however patient has not had biopsy. Her oxygen saturation is currently in the mid 90s on 2 L nasal cannula. We will initiate sepsis orders with IV fluids, antibiotics and obtain more advanced imaging of the chest. Chest x-ray reveals enlarged heart, flattening of the diaphragms, loculated right effusion with rounded opacity similar to prior exam. Bilateral mid lower lung interstitial markings. Scoliosis. EKG reveals AFib RVR with a rate of 111. Labs reveal slightly elevated WBC 11.2 with neutrophil predominance. Sodium 141, potassium 3.8, BUN elevated 42 creatinine 0.76. Glucose 140. Slight elevations of AST 72, ALT 43, alkaline phosphatase 127. Troponin is elevated at 0.058, no current chest pain, we will repeat in 2 hours. BNP is elevated 2700. Procalcitonin is normal 0.217. Lactate normal 1.6. Respiratory panel negative 07/16/25. Chest CTA reveals chronic loculated pleural effusion on the right with thickened pleura similar to prior. Presumed rounded atelectasis in the right middle and lower lobe again noted but increased in the right middle lobe. New small left effusion without evidence of atelectasis. New consolidation or atelectasis in the left lower lobe and lingula. No PE. Cardiomegaly. 1540: Discussed case with PCP/hospitalist Dr. Major. At this time and has been determined that patient requires transfer for higher level of care for treatment of presumed infected loculated pleural effusion, possible malignancy, requires a facility that has interventional Radiology. 1758: Spoke with hospitalist Dr. Lovell at [facility] who accepts the patient for admission to [facility] tele with IR Dr. Anni Tom planning for drainage tomorrow evening. Patient and her family are aware and agreeable to the transfer for higher level of care, interventional radiology intervention, and she is stable at this time. 1900: Informed by nursing staff patient's blood pressure is lower. Reassessed patient, she denies any new or worsening symptoms. Will add on additional 500 ml IVF. Discussed with nighttime physician, Dr. Guevara. We will continue to monitor BP, if vassopressors are needed we will need to call [place] [facility] back for update on higher level of care need. Pt has been accepted at [facility] with hospitalist Discharge Plan Departure Patient Disposition: [facility] Clinical Impression: Loculated pleural effusion Atrial fibrillation Qualifiers: Atrial fibrillation type: unspecified Qualified Code(s): I48.91 - Unspecified atrial fibrillation Prescriptions: No Action metoprolol succinate 50 mg tablet extended release 24 hr 50 mg PO BID Qty: 180 3RF gabapentin 300 mg capsule 300 mg PO DAILY Qty: 90 3RF amoxicillin-pot clavulanate 500-125 mg tablet 1 tab PO BID Qty: 14 0RF Rx Instructions: TAKE ONE TABLET TWICE DAILY WITH FOOD FOR 7 DAYS mupirocin calcium 2 % cream 1 applic topical BID Qty: 30 0RF Rx Instructions: apply to affected area twice daily after washing with soap and water Metamucil 3.4 gram/5.4 gram powder 1 tbsp PO DAILY Rx Instructions: mix into at least 8 oz of water or juice before administering ketoconazole 2 % cream See Rx Instructions topical BID Qty: 30 0RF Rx Instructions: 1mg toppically bid TOP BID; Eliquis 2.5 mg tablet 2.5 mg PO BID lidocaine 5 % adhesive patch,medicated 2 patch topical DAILY Qty: 30 2RF Rx Instructions: leave on most painful area for up to 12 hrs melatonin 5 mg Tablet 5 mg PO BEDTIME PRN (Reason: Sleep) ascorbic acid (vitamin C) [Vitamin C] 500 mg Tablet 500 mg PO DAILY zinc 50 mg Capsule 50 mg PO DAILY polyethylene glycol 3350 17 gram Powder In Packet 17 gm PO BID Qty: 565 1RF cholecalciferol (vitamin D3) 50 mcg (2,000 unit) capsule 50 mcg PO DAILY spironolactone 25 mg tablet 25 mg PO DAILY Jardiance 10 mg tablet 10 mg PO DAILY furosemide [Lasix] 40 mg tablet 40 mg PO DAILY Qty: 60 1RF Referrals: Jude Choe MD [Primary Care Provider, [facility]] Sepsis Evaluation (ED) <Dinorah Palomo PA-C - Last Filed: 07/18/25 19:17> Level 1 - Infection Sepsis Infection Criteria Present: Suspected New Infection Level 2 - SIRS Sepsis SIRS Criteria Present: Pulse > 90 bpm Level 3 - Organ Dysfunction Sepsis Organ Dysfunction Criteria Present: Acute Respiratory Failure Response It is my opinion that this patient have a likely infectious etiology for meeting sepsis criteria: Does Fluid calculation based on 30 mL/kg within 1hr of criteria: Other If IVF bolus N/A, rationale: She received 1,000mL initially due to history of CHF with BL pleural effusions Reason for ordering crystalloid fluids < 30 mL/kg:: Heart failure Antibiotics initiated within 1 hr of Sepis dx: Yes Tissue Perfusion Reassessed within 6 hrs of infusion start time: Yes Date of Tissue Perfusion Reassessment completed: 07/18/25 Time Tissue Perfusion Reassessment completed: 17:00
--- NOTE | 2025-07-18 12:30 | DI.RAD.S_ITS ---
PROCEDURE: XR CHEST 1V INDICATIONS: SOB TECHNIQUE: One view of the chest was acquired. COMPARISON: [facility], CR, XR CHEST 2V, 07/16/2025, 16:18. FINDINGS: Heart is enlarged. Flattening of the diaphragms. Loculated right effusion with rounded opacity similar prior examination. Bilateral mid lower lung interstitial markings. Scoliosis. Osseous demineralization. No pneumothorax. IMPRESSION: Stable examination Dictated by: Carlos Cuevas M.D. on 07/18/2025 at 13:17 Approved by: Carlos Cuevas M.D. on 07/18/2025 at 13:22
--- NOTE | 2025-07-18 12:30 | EKG_ITS ---
[address] [address] Test Date: 2025-07-18 Pat Name: Humera Jackman Department: 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
[2025-07-18] MEDS: CEFEPIME 2 GM in SODIUM CHLORIDE 0.9% 100 ML IV (12:46)
[2025-07-18] MEDS: SODIUM CHLORIDE 0.9% 1061.4 ML IV (12:46)
[2025-07-18 12:52] LABS: Add Manual Diff / Slide Review NO; Hematocrit 39.1 % (36-46); Hemoglobin 13.2 g/dL (12.0-16.0); INR 1.4 (0.9-1.3); Lymphocytes Absolute Auto 600 /uL (1100-4500); Mean Corpuscular HGB Conc 33.8 % (30-36); Mean Corpuscular Hemoglobin 34.0 PG (26-34); Mean Corpuscular Volume 100.5 fL (80-100); Platelet Count 365 X10^3/uL (150-400); Prothrombin Time 16.2 SECONDS (9.4-12.5)
[2025-07-18 12:54] LABS: PTT Partial Thromboplastin Tim 33 SECONDS (25.1-36.5)
[2025-07-18 13:04] LABS: Creatine Kinase 22 U/L (30-135)
[2025-07-18 13:05] LABS: Alanine Aminotransferase 43 IU/L (<35); Albumin 4.3 g/dL (3.5-5.0); Albumin Globulin Ratio 1.0 (1.0-2.8); Alkaline Phosphatase 127 U/L (38-126); Blood Urea Nitrogen 42 mg/dL (7-17); Calcium 10.0 mg/dL (8.4-10.2); Carbon Dioxide 31 mmol/L (22-32); Chloride 98 mmol/L (98-107); Estimated Glomerular Filt Rate > 60 mL/min (>60); Globulin 4.4 g/dL (1.7-4.1); Glucose 140 mg/dL (70-99); HEMOLYSIS < 15 (0-50); Potassium 3.8 mmol/L (3.4-5.1); Sodium 141 mmol/L (137-145); Total Protein 8.7 g/dL (6.3-8.2)
[2025-07-18 13:07] LABS: Lactate (Lactic Acid) 1.6 mmol/L (0.7-2.1)
[2025-07-18 13:15] LABS: NT-proBNP (BNP-Adult 18+) 2700 pg/mL (<450)
[2025-07-18 13:16] LABS: Troponin I 0.058 ng/mL (0.01-0.034)
--- NOTE | 2025-07-18 13:18 | DI.CT.S_ITS ---
PROCEDURE: CT ANGIO CHEST PE PROTOCOL INDICATIONS: R lung masslike opacity; tachy hypoxic PE? TECHNIQUE: After the administration of intravenous contrast, 2 mm thick sections acquired from the pulmonary apices to the posterior costophrenic angles. 3-dimensional maximum intensity projection (MIP) coronal and sagittal reformats were then acquired through the thorax. For radiation dose reduction, the following was used: automated exposure control, adjustment of mA and/or kV according to patient size. COMPARISON: [facility], CT, CT CHEST [facility], 03/05/2025, 11:37. FINDINGS: Quality: Diagnostic. Vasculature: Aorta: No aneurysm. Atherosclerotic calcifications. Pulmonary arteries: No emboli. Lungs: Chronic loculated right pleural effusion with thickened pleura similar to prior examination. Small left effusion without evidence of loculation. Areas of presumed rounded atelectasis in the right lower lobe and right middle Consolidation or atelectasis in the left lower lobe in lingula new from prior. Mild diffuse bronchial wall thickening. Mediastinum: Thyroid: Unremarkable. Esophagus: Unremarkable. Heart: Cardiac enlargement similar to prior. No pericardial effusion. Lymph nodes: No adenopathy. Other: Chest wall: Unchanged calcified right breast mass and surgical clips.. Upper abdomen: Unremarkable. Bones: No aggressive osseous lesion. Scoliosis. IMPRESSION: Chronic loculated pleural effusion on the right with thickened pleura similar to prior. Presumed rounded atelectasis in the right middle and lower lobe again noted but increased in the right middle lobe. New small left effusion without evidence of atelectasis. New consolidation or atelectasis in the left lower lobe and lingula. No pulmonary embolism. Cardiomegaly. Dictated by: Carlos Cuevas M.D. on 07/18/2025 at 14:26 Approved by: Carlos Cuevas M.D. on 07/18/2025 at 14:37
[2025-07-18 13:22] LABS: Procalcitonin 0.217 ng/mL (<0.5)
--- NOTE | 2025-07-18 14:33 | EKG_ITS ---
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
[2025-07-18 15:12] LABS: Troponin I 0.055 ng/mL (0.01-0.034)
[2025-07-18] MEDS: METOPROLOL ER 50 MG TABLET PO (15:35)
[2025-07-18 16:03] LABS: Coronavirus NL 63 Not Detected (Not Detect); SARS- CoV-2 Not Detected (Not Detecte)
--- NOTE | 2025-07-18 16:15 | PC.NURSE ---
1300: per provider, ok for pt to get 1L of fluid instead of the ordered amount.
[2025-07-18 19:16] LABS: Appearance Urine UA CLEAR; Bilirubin Urine UA NEGATIVE (NEGATIVE); Color Urine UA YELLOW; Glucose Urine UA 3+ g/dL (Negative); Ketones Urine UA TRACE (NEGATIVE); Leukocyte Esterase Urine UA NEGATIVE (NEGATIVE); Nitrite Urine UA NEGATIVE (Negative); Occult Blood Urine UA 2+ (Negative); Protein Urine UA 1+ (Negative); Specific Gravity Urine UA 1.010 (1.000-1.035); Urobilinogen Urine UA 0.2 E.U./dL (0.2)
--- NOTE | 2025-07-18 19:17 | PC.NURSE ---
1617: Pt assessment unchanged
[2025-07-18 19:22] LABS: pH Urine UA 5.5 (4.5-8.0)
[2025-07-18 19:23] LABS: Culture Indicated Urine Cult Not Indicated
--- NOTE | 2025-07-18 20:25 | PC.NURSE ---
Pt placed in hospital bed at this time.
--- NOTE | 2025-07-18 21:08 | PC.NURSE ---
Pt awake and alert sitting in hospital bed. Pt engages appropriately with RN upon entry into exam room. Continued plan of care and pending dispo discussed at this time. No further requests or concerns at this time. Pt remains connected to cardiac, resp, blood pressure, and pulse ox monitors with alarms on and audible. VS stable at this time. Call light within reach. Family has left for the evening. Confirmed son and daughters contact information prior to their departure.
--- NOTE | 2025-07-18 23:14 | PC.NURSE ---
FORK LIFT MECHANIC note: 1954 spoke with Jacey at [facility]. Asked about bed assignment. Said they wouldn't have beds until morning discharges. Let VALERI Keating know about that.
[2025-07-18] MEDS: MELATONIN 3 MG TABLET PO (23:38)
[2025-07-18] MEDS: GABAPENTIN 100 MG CAPSULE 200 MG PO (23:38)
[2025-07-19] VITALS: BP 99/67; PULSE 110; RESP 27; O2SAT 96
[2025-07-19 00:30] VITALS: BP 96/65; PULSE 113; RESP 13; O2SAT 95
[2025-07-19 01:00] VITALS: BP 106/66; PULSE 108; RESP 29; O2SAT 96
--- NOTE | 2025-07-19 01:21 | PC.NURSE ---
Pt resting quietly with eyes closed, resps even and not labored. No distress noted at this time. Pt remains connected to cardiac, blood pressure, pulse ox, and resp monitors with alarms on and audible. VS stable at this time. Call light within reach.
[2025-07-19 01:30] VITALS: BP 103/65; PULSE 109; RESP 30; O2SAT 96
[2025-07-19 02:00] VITALS: BP 108/73; PULSE 114; RESP 28; O2SAT 96
--- NOTE | 2025-07-19 02:04 | PC.NURSE ---
Contacted son Vikram Portertner to update and inform of transfer.
== END 2025-07-19 02:48 | disposition short-term general hospital (02) ==
PROVIDERS: Physician Assistant; Emergency Provider Family Medicine; PCP Family Medicine
DX: J90 Pleural effusion, not elsewhere classified (principal); R06.02 Shortness of breath
CPT/HCPCS: 36415; 71045; 71275; 80053; 81001; 82550; 83605; 83880; 84145; 84484; 85025; 85610; 85730; 87040; 87633; 93005; 93010; 96361; 96365; 96375; 99285; J0692; J7030; J7050; Q9967